=== PATIENT | female | born 1945 | race Hispanic/Latino ===

== ENCOUNTER 2017-02-24 02:35 | Inpatient (IN) | payer MEDICARE, MEDICAID ==
[2017-02-24] MEDS ORDERED: Nitroglycerin 2% Ointment 1 INCH/1 GM Packet ONE (02:44)
[2017-02-24 03:11] LABS: Anion Gap 7 mmol/L (-14-95); T. Carbon Dioxide 27.2 mmol/L (1.0-85.0); pH (Venous) 7.325 (7.35-7.45); vO2 Saturation-calc 85.4 % (0.0-100.0)
[2017-02-24 03:24] LABS: #Eosinphils 0.1 thou/uL (0.0-0.7); #Lymphocytes 0.8 thou/uL (1.20-3.40); #Monocytes 0.5 thou/uL (0.11-0.59); #Neutrophils 7.9 thou/uL (1.40-6.50); %Basophils 0.1 % (0.0-1.0); %Eosinophils 1.2 % (0.0-10.0); %Lymphocytes 8.2 % (21.0-51.0); %Monocytes 5.4 % (0.0-10.0); Hematocrit 31.8 % (36.0-47.0); Mean Platelet Volume 8.7 fL (7.4-10.4); Red Blood Cell (RBC) Count 3.27 mill/uL (4.20-5.40); White Blood Cell (WBC) Count 9.3 thou/uL (4.8-10.8)
[2017-02-24 03:46] LABS: ALT (SGPT) 20 U/L (8-55); AST (SGOT) 21 U/L (5-34); Alkaline Phosphatase 155 U/L (40-150); Anion Gap 23 mmol/L (10-20); BUN (Urea Nitrogen) 94 mg/dL (9.8-20.1); Bilirubin, Total 0.8 mg/dL (0.2-1.2); CK (CPK) 24 U/L (29-168); Calc. Creatinine Clearance 0 mL/min (70-130); Calcium 9.5 mg/dL (7.8-10.44); Carbon Dioxide 23 mmol/L (23-31); Chloride 96 mmol/L (98-107); Estimated GFR-MDRD 3; Globulin 4.3 g/dL (2.4-3.5); Protein, Total 8.2 g/dL (6.0-8.3)
[2017-02-24 04:03] LABS: Troponin I 0.453 ng/mL (< 0.028)
[2017-02-24] MEDS ORDERED: Furosemide 40 MG/4 ML VIAL ONE (04:14)
[2017-02-24] MEDS ORDERED: hydrALAZINE 20 MG/ML VIAL SLOW IVP PRN (05:38)
[2017-02-24] MEDS ORDERED: Ondansetron ODT 4 MG TAB PO PRN (05:38)
[2017-02-24] MEDS ORDERED: Dextrose 50% Abboject 50 ML SYRINGE SLOW IVP PRN (05:38)
[2017-02-24] MEDS ORDERED: Dextrose 5% in Water 1,000 ML IV PRN (05:38)
[2017-02-24] MEDS ORDERED: ALPRAZolam 0.25 MG TAB PO PRN ×2 (05:38→11:07)
[2017-02-24] MEDS ORDERED: HYDROcodone/Acetaminophen 5/325 mg Tablet PO PRN (05:38)
[2017-02-24] MEDS ORDERED: Acetaminophen 325 MG TAB PO PRN (05:38)
[2017-02-24] MEDS ORDERED: HumaLOG 300 UNITS/3 ML VIAL SC PRN (05:38)
[2017-02-24] MEDS ORDERED: HYDROcodone/Acetaminophen 10/325 mg Tablet PO PRN (05:38)
[2017-02-24 05:45] VITALS: BMI 35.2
[2017-02-24] MEDS: Furosemide 40 MG/4 ML VIAL SLOW IVP SCH ×2 (06:02→13:58)
[2017-02-24] MEDS: Nitroglycerin 2% Ointment 1 INCH/1 GM Packet TOP SCH ×3 (06:03→21:39)
--- NOTE | 2017-02-24 06:10 | HP ---
PRIMARY CARE PHYSICIAN: Dr. Hernandez PRIMARY PASTING MACHINE OPERATOR: Dr. Ryan Mayorga CHIEF COMPLAINT: Shortness of breath. HISTORY OF PRESENT ILLNESS: Ms. Randle is a pleasant 71-year-old obese female with hi story of end-stage renal disease, on hemodialysis Friday, Friday, and Friday, coronary artery dise ase, hypertension. The patient has been compliant with the regimens. She has had a 2-3 day history of increasing shortness of breath and then the evening prior to admission at 9:00 p.m. she got acutel y worse. EMS was called and apparently her SpO2 was in the 70s. She was given a DuoNeb x2 and place d on BiPAP and oxygen and transported to the emergency department. Per report, blood pressures were in the 200/110. On arrival here, blood pressure remain elevated, she was given BiPAP, but no nitro p aste or Lasix prior to calling me. I asked them to go ahead and place an inch and nitro paste onto h er chest wall and give her 40 mg of IV Lasix. She has not put out much urine yet. She was breathing better on BiPAP and sats were 100% on FiO2 of 30%. She denies any fever or chills. She has had some cough and congestion. No hemoptysis. No GI bleedi ng, no change in her diet or increase in salt intake. PAST MEDICAL HISTORY: 1. Diabetes mellitus type 2. 2. End-stage renal disease, on hemodialysis Friday, Friday, and Friday. 3. Hypertension, essential. 4. Hyperlipidemia. 5. Obesity. 6. History of coronary artery disease. She states she had a heart attack several years ago and went into multiorgan failure and resultant was her end-stage renal disease. She had a stress test at [facility] in the recent past that was abnormal and she is supposed to see Dr. Mckenzie this week to get set up for a possible heart catheterization. PAST SURGICAL HISTORY: 1. Stomach mass removal. 2. Eye surgery. 3. Right arm fistula creation. 4. Left hallux amputation. HOME MEDICATIONS: 1. Xanax 0.25 mg p.o. t.i.d. 2. Protonix 40 mg p.o. q.a.m. 3. Nifedical XL 60 mg p.o. daily. 4. Isosorbide dinitrate 20 mg p.o. daily. 5. Metoprolol tartrate 100 mg p.o. b.i.d. ALLERGIES: NKDA. FAMILY HISTORY: Negative for clotting or bleeding disorder, no immune dysfunction, no premature daphney nary disease. SOCIAL HISTORY: Negative for habits x3. She is . Her accompanies her. REVIEW OF SYSTEMS: A 10-point review of systems was performed, negative for all other systems except as per HPI. PHYSICAL EXAMINATION: VITAL SIGNS: Temperature is 97.5, pulse 118, blood pressure 162/84, respiratory 19, satting 100% on BiPAP 12/5 with 30% FiO2. GENERAL: The patient is awake. She is alert, she is oriented x3. She is in no acute distress. She is comfortable with BiPAP. HEENT: Normocephalic, atraumatic. Pupils equal, reactive bilaterally, mucous membranes are dry on B iPAP. She has no visible lesions. No thrush. NECK: Supple. She has no lymphadenopathy, no JVD. She has normal carotid upstroke. CHEST: Lungs are currently clear to auscultation bilaterally. She has faint bibasilar crackles that do not clear with deep inspiration. There is no prolonged expiratory phase and no wheezes. CARDIOVASCULAR: She is tachycardic, but regular. She has normal S1 and S2. I cannot appreciate mur murs. ABDOMEN: Obese, it is nontender, nondistended. She has no hepatosplenomegaly. There is a hepatojug ular reflex. She has normoactive bowel sounds present x4 quadrants. EXTREMITIES: Show no cyanosis, no clubbing with trace bilateral lower extremity edema to the mid tib ia level. SKIN: Warm, moist, and well perfused without rashes or lesions. MUSCULOSKELETAL: Normal to inspection. She has no inflamed joints. No palpable joint effusion. Go od range of motion. NEUROLOGIC: Cranial nerves II-XII grossly intact. She has normal speech pattern. She has no focal deficits, 5/5 strength. LABORATORY DATA: CMP is normal except for BUN 94, creatinine of 11.15 which is at her baseline. Reginald cium is normal at 9.5, potassium 4.5, bicarbonate 23, glucose 158. Alkaline phosphatase 155. The re st of the liver functions are normal. She had a BNP of 1283.1. CK normal at 24, MB of 2.8 and a tro ponin of 0.453. CBC revealed white count 9.3, hemoglobin 10.7, hematocrit of 31.8 and platelets 131,000. Her chest x -ray shows pulmonary vascular congestion to my eye and some pulmonary edema in the bases. ASSESSMENT AND PLAN: 1. Hypertensive urgency. Blood pressure in the 200/110s on initial EMS arrival. She is in pulmonar y edema secondary to that. 2. Acute on chronic diastolic congestive heart failure, last ejection fraction of 55-60% with diasto lic dysfunction in 11/2015. We will get a repeat echocardiogram and ask Cardiology to evaluate. 3. History of coronary disease. The patient is being set up for a heart catheterization. We will g et serial cardiac biomarkers. The patient will be on nitro paste, we will continue her metoprolol, a nd oxygen. We will await Cardiology evaluation. 4. End-stage renal disease on dialysis. The patient needs dialysis semi urgently. We will contact Dr. Mayorga for dialysis. Today is her dialysis day. 5. Obesity. 6. Hyperlipidemia, not on therapy at this time. The patient will be admitted to the IMCU on BiPAP.
[2017-02-24 06:35] LABS: Troponin I 0.546 ng/mL (< 0.028)
[2017-02-24] MEDS: Famotidine 20 MG TAB PO SCH (08:17)
--- NOTE | 2017-02-24 08:44 | RAD ---
PORTABLE CHEST: Date: 02/24/17 HISTORY: Dyspnea. COMPARISON: 12/16/15. FINDINGS/IMPRESSION: Heart is upper normal size. There is vascular engorgement. There is evidence of bilateral effusions, larger on the left. There is abnormal opacification of the left lung base consistent with dense atele ctasis and/or consolidation. POS: [facility]
[2017-02-24] MEDS ORDERED: NIFEdipine XL 60 MG TAB PO SCH (09:00)
[2017-02-24] MEDS ORDERED: Isosorbide Dinitrate 20 MG TAB PO SCH (09:00)
[2017-02-24] MEDS ORDERED: Metoprolol Tartrate 100 MG TAB PO SCH (09:00)
[2017-02-24] MEDS ORDERED: Aspirin 325 MG TAB PO SCH (09:00)
--- NOTE | 2017-02-24 11:15 | PDOC.PN ---
- Subjective Encounter Start Date: 02/24/17 Encounter Start Time: 11:12 Subjective: on BIPAP, no distress - Objective Resuscitation Status: Resuscitation Status FULL:Full Resuscitation MAR Reviewed: Yes Vital Signs & Weight: Vital Signs (12 hours) Temp Pulse Resp BP BP Pulse Ox 02/24/17 11:00 96.7 F L 74 30 H 105/52 L 98 02/24/17 08:55 97.9 F 111 H 18 97 02/24/17 08:15 111 H 153/72 H 02/24/17 07:28 110 H 15 99 02/24/17 07:17 97.9 F 110 H 20 153/72 H 100 02/24/17 06:00 97.8 F 117 H 23 H 100 02/24/17 05:10 97.8 F 117 H 23 H 167/83 H 100 Weight Weight 186 lb 9.6 oz I&O: 02/23/17 02/24/17 02/25/17 06:59 06:59 06:59 Intake Total 20 Balance 20 Result Diagrams: 02/24/17 03:07 02/24/17 03:07 Additional Labs: Accuchecks 02/24/17 02/24/17 10:22 06:56 POC Glucose 97 123 H Phys Exam - Physical Examination Constitutional: NAD Neck: no JVD bilat lower lung rales, L.R Cardiovascular: RRR 2/6 sys murmur Gastrointestinal: soft, positive bowel sounds Musculoskeletal: edema present Dx/Plan (1) Acute respiratory failure with hypoxemia Code(s): J96.01 - ACUTE RESPIRATORY FAILURE WITH HYPOXIA Status: Acute (2) Acute on chronic diastolic (congestive) heart failure Code(s): I50.33 - ACUTE ON CHRONIC DIASTOLIC (CONGESTIVE) HEART FAILURE Status : Acute (3) ESRD needing dialysis Code(s): N18.6 - END STAGE RENAL DISEASE; Z99.2 - DEPENDENCE ON RENAL DIALYSIS Status: Chronic (4) Diabetes mellitus with end stage renal disease Code(s): E11.22 - TYPE 2 DIABETES MELLITUS W DIABETIC CHRONIC KIDNEY DISEASE; N18.6 - END STAGE RENAL DISEASE Status: Chronic (5) Peripheral vascular disease in diabetes mellitus Code(s): E11.51 - TYPE 2 DIABETES W DIABETIC PERIPHERAL ANGIOPATH W/O GANGRENE Status: Chronic (6) Anxiety Code(s): F41.9 - ANXIETY DISORDER, UNSPECIFIED Status: Chronic (7) CAD (coronary artery disease) Code(s): I25.10 - ATHSCL HEART DISEASE OF [place] CORONARY ARTERY W/O ANG PCTRS Status: Chronic Qualifiers: Coronary Disease-Associated Artery/Lesion type: [place] artery [place] vs. transplanted heart: [place] heart Associated angina: without angina Qualified Code(s): I25.10 - Atherosclerotic heart disease of [place] coronary artery without angina pectoris - Plan cont BIPAP , O2 -: cont HD -: accu/ss -: selected home meds * .
[2017-02-24 14:06] LABS: Troponin I 2.326 ng/mL (< 0.028)
[2017-02-24 18:55] LABS: Troponin I 2.542 ng/mL (< 0.028)
--- NOTE | 2017-02-24 19:51 | CON ---
DATE OF CONSULTATION: 02/24/2017 CONSULTING PHYSICIAN: Dr. West. REASON FOR CONSULTATION: End-stage renal disease evaluation and care. REASON FOR ADMISSION: Shortness of breath. HISTORY OF PRESENT ILLNESS: This is a 71-year-old obese female with past medical history of end-stage renal disease, hypertension, noncompliance, hyperlipidemia, obesity, who came to the [facility] with shortness of breath and has been evaluated. The patient had an increased fluid intake over the holiday season and is due for dialysis today. She gets dialysis Friday, Friday and Friday. S he was seen after dialysis and was feeling better. No fever or chills. No nausea, vomiting, no coug h reported. PAST MEDICAL HISTORY: Positive for type 2 diabetes, end-stage renal disease, hypertension, hyperlipi demia, obesity, coronary artery disease. PAST SURGICAL HISTORY: Stomach mass removal, eye surgery, right arm fistula creation, left hallux am putation. HOME MEDICATIONS: Xanax, Protonix, Nifedical, isosorbide, metoprolol. ALLERGIES: No known drug allergies. SOCIAL HISTORY: No smoking, alcohol or illicit drug abuse. FAMILY HISTORY: No history of any kidney disease. REVIEW OF SYSTEMS: The following complete review of systems was negative, unless otherwise mentioned in the HPI or below: Constitutional: Weight loss or gain, ability to conduct usual activities. Skin: Rash, itching. Eyes: Double vision, pain. ENT/Mouth: Nose bleeding, neck stiffness, pain, tenderness. Cardiovascular: Palpitations, dyspnea on exertion, orthopnea. Respiratory: Shortness of breath, wheezing, cough, hemoptysis, fever or night sweats. Gastrointestinal: Poor appetite, abdominal pain, heartburn, nausea, vomiting, constipation, or diarr hea. Genitourinary: Urgency, frequency, dysuria, nocturia. Musculoskeletal: Pain, swelling. Neurologic/Psychiatric: Anxiety, depression. Allergy/Immunologic: Skin rash, bleeding tendency. PHYSICAL EXAMINATION: GENERAL: This is an obese female, in no apparent distress. VITAL SIGNS: Temperature 98.2, pulse 75, respiratory rate 18, blood pressure 105/52. LABORATORY DATA: Potassium 4.5, BUN 94, creatinine 11.1, albumin is 3.9. Hemoglobin is 10.7. ASSESSMENT AND PLAN: 1. End-stage renal disease. Plan is to have dialysis today. The patient had dialysis, emergent shahid lysis. 2. Fluid overload with shortness of breath. We will plan for dialysis and ultrafiltration. 3. Edema. 4. Hypertension. 5. Anemia. 6. The patient was advised to limit fluid intake. We will continue to follow. Thank you for the co nsultation. We will continue on dialysis Friday, Friday, and Friday. We will consider dialysis t omorrow if remains fluid overloaded. Monitor oxygen status and limit fluid intake and salt intake. We will follow.
[2017-02-24] MEDS: NIFEdipine XL 30 MG TAB PO SCH (21:38)
[2017-02-24] MEDS: Metoprolol Tartrate 100 MG TAB PO SCH (21:39)
[2017-02-24 22:33] LABS: Critical Call Chem Troponin I RESULT DECREASING; Troponin I 2.403 ng/mL (< 0.028)
[2017-02-25 04:22] LABS: #Eosinphils 0.2 thou/uL (0.0-0.7); #Lymphocytes 0.9 thou/uL (1.20-3.40); #Monocytes 0.6 thou/uL (0.11-0.59); #Neutrophils 5.5 thou/uL (1.40-6.50); %Basophils 0.4 % (0.0-1.0); %Eosinophils 2.7 % (0.0-10.0); %Lymphocytes 11.9 % (21.0-51.0); %Monocytes 7.8 % (0.0-10.0); Hematocrit 27.6 % (36.0-47.0); Mean Platelet Volume 8.7 fL (7.4-10.4); Red Blood Cell (RBC) Count 2.76 mill/uL (4.20-5.40); White Blood Cell (WBC) Count 7.1 thou/uL (4.8-10.8)
[2017-02-25 04:38] LABS: Anion Gap 16 mmol/L (10-20); BUN (Urea Nitrogen) 49 mg/dL (9.8-20.1); Calc. Creatinine Clearance 11 mL/min (70-130); Calcium 9.1 mg/dL (7.8-10.44); Carbon Dioxide 27 mmol/L (23-31); Chloride 97 mmol/L (98-107); Estimated GFR-MDRD 7
[2017-02-25] MEDS: Nitroglycerin 2% Ointment 1 INCH/1 GM Packet TOP SCH ×3 (06:12→23:24)
[2017-02-25] MEDS: Aspirin 81 mg Enteric Coated Tablet PO SCH (09:40)
[2017-02-25] MEDS: Famotidine 20 MG TAB PO SCH (09:40)
[2017-02-25] MEDS: Isosorbide Dinitrate 20 MG TAB PO SCH (09:47)
[2017-02-25] MEDS: Metoprolol Tartrate 100 MG TAB PO SCH ×3 (09:47→20:55)
--- NOTE | 2017-02-25 11:47 | PDOC.PN ---
- Subjective Encounter Start Date: 02/25/17 Encounter Start Time: 10:00 Subjective: sob improved, off BIPAP - Objective Resuscitation Status: Resuscitation Status FULL:Full Resuscitation MAR Reviewed: Yes Vital Signs & Weight: Vital Signs (12 hours) Temp Pulse Resp BP Pulse Ox 02/25/17 11:27 97.8 F 53 L 20 91/41 L 100 02/25/17 09:00 98.2 F 71 20 100 02/25/17 07:47 98.2 F 71 20 135/51 L 100 02/25/17 05:09 99 02/25/17 04:09 98.4 F 61 18 102/34 L 99 02/25/17 00:09 98.6 F 66 17 103/32 L 98 Weight Weight 180 lb 6.4 oz I&O: 02/24/17 02/25/17 02/26/17 06:59 06:59 06:59 Intake Total 20 1020 Output Total 3575 Balance 20 -2555 Result Diagrams: 02/25/17 04:03 02/25/17 04:03 Additional Labs: Accuchecks 02/25/17 02/25/17 02/24/17 11:14 05:58 20:16 POC Glucose 112 H 95 159 H 02/24/17 16:37 POC Glucose 125 H Phys Exam - Physical Examination Constitutional: NAD Neck: no JVD rales to mid chest post. Cardiovascular: RRR, no rub, gallop Gastrointestinal: soft, no distention, positive bowel sounds Musculoskeletal: edema present Dx/Plan (1) Acute respiratory failure with hypoxemia Code(s): J96.01 - ACUTE RESPIRATORY FAILURE WITH HYPOXIA Status: Acute (2) Acute on chronic diastolic (congestive) heart failure Code(s): I50.33 - ACUTE ON CHRONIC DIASTOLIC (CONGESTIVE) HEART FAILURE Status : Acute (3) ESRD needing dialysis Code(s): N18.6 - END STAGE RENAL DISEASE; Z99.2 - DEPENDENCE ON RENAL DIALYSIS Status: Chronic (4) Diabetes mellitus with end stage renal disease Code(s): E11.22 - TYPE 2 DIABETES MELLITUS W DIABETIC CHRONIC KIDNEY DISEASE; N18.6 - END STAGE RENAL DISEASE Status: Chronic (5) Peripheral vascular disease in diabetes mellitus Code(s): E11.51 - TYPE 2 DIABETES W DIABETIC PERIPHERAL ANGIOPATH W/O GANGRENE Status: Chronic (6) Anxiety Code(s): F41.9 - ANXIETY DISORDER, UNSPECIFIED Status: Chronic (7) CAD (coronary artery disease) Code(s): I25.10 - ATHSCL HEART DISEASE OF [place] CORONARY ARTERY W/O ANG PCTRS Status: Chronic Qualifiers: Coronary Disease-Associated Artery/Lesion type: [place] artery [place] vs. transplanted heart: [place] heart Associated angina: without angina Qualified Code(s): I25.10 - Atherosclerotic heart disease of [place] coronary artery without angina pectoris - Plan rpt cxr. cont O2, -: move to tele -: will need at least 1 more HD * .
--- NOTE | 2017-02-25 15:51 | RAD ---
RADIOGRAPH CHEST 1 VIEW: Date: 02-26-16 Time: 11:54 a.m. HISTORY: 71-year-old female with dyspnea, cough, and congestion. COMPARISON: 02-24-17 at 2:26 a.m. FINDINGS: Pulmonary vascular engorgement and cardiomegaly are again noted. The left lower lobe dense opacificat ion remains. The airspace densities in the left perihilar region, and to a lesser degree right perihi lar region, remain. There is a new finding of dense opacification of the right lung base. No pneumoth orax. IMPRESSION: 1. Interval development of new air space density in the right lower lobe: Pneumonia versus atelectasi s. 2. No interval change in the large consolidation or left lower lobe: Pneumonia versus atelectasis. 3. Evidence for congestive heart failure: Cardiomegaly, pulmonary vascular engorgement and probable b ilateral pleural effusions, similar to prior study. YVONNE [] POS: [facility]
[2017-02-25] MEDS: NIFEdipine XL 30 MG TAB PO SCH (20:56)
--- NOTE | 2017-02-25 22:40 | PRG ---
DATE OF SERVICE: 02/25/2017 SUBJECTIVE: Patient was seen and examined at bedside and overnight events noted. Patient denies any shortness of breath or chest pain or palpitation. No history of nausea or vomiting or diarrhea or f ever or chills or cramps. OBJECTIVE: GENERAL: This is an obese female, in no apparent distress. VITAL SIGNS: Temperature 98.0, pulse 56, respiratory rate 16, blood pressure 99/42. HEENT: Atraumatic, normocephalic, Oral mucosa is moist. NECK: Supple. CARDIOVASCULAR: S1, S2 heard, rate and rhythm regular. RESPIRATORY: Clear to auscultation. GASTROINTESTINAL: Abdomen is soft. MUSCULOSKELETAL: No tenderness, no edema. DERMATOLOGIC: No skin rash. NEUROLOGIC: Alert and awake and oriented x3. No focal neurologic deficits. Moving all the extremit ies. PSYCHIATRIC: Mood and affect normal. LABORATORY DATA: Potassium is 4.3, BUN is 49, creatinine is 6.1. ASSESSMENT AND PLAN: 1. End-stage renal disease. Continue on hemodialysis as tolerated. We will have extra dialysis for today for 2 hours. 2. Fluid overload. Plan is to have extra 2-hour session of dialysis today for ultrafiltration. 3. Anemia. 4. Edema. 5. Hypertension. 6. Obesity. Plan is to continue on dialysis as tolerated. We will have 2 hours of dialysis today and then contin ue on dialysis Friday, Friday, and Friday. The patient was advised to limit fluid intake.
[2017-02-26] MEDS: Nitroglycerin 2% Ointment 1 INCH/1 GM Packet TOP SCH ×3 (05:59→20:54)
[2017-02-26] MEDS: Famotidine 20 MG TAB PO SCH (13:29)
[2017-02-26] MEDS: Isosorbide Dinitrate 20 MG TAB PO SCH (13:31)
[2017-02-26] MEDS: Aspirin 81 mg Enteric Coated Tablet PO SCH (13:31)
[2017-02-26] MEDS: Metoprolol Tartrate 100 MG TAB PO SCH ×2 (13:32→20:53)
--- NOTE | 2017-02-26 14:56 | PDOC.PN ---
- Subjective Encounter Start Date: 02/26/17 Encounter Start Time: 14:55 Subjective: no sob - Objective Resuscitation Status: Resuscitation Status FULL:Full Resuscitation MAR Reviewed: Yes Vital Signs & Weight: Vital Signs (12 hours) Temp Pulse Resp BP Pulse Ox 02/26/17 13:00 98.0 F 55 L 15 100 02/26/17 04:09 98.0 F 55 L 15 110/60 98 Weight Weight 179 lb 4.8 oz I&O: 02/25/17 02/26/17 02/27/17 06:59 06:59 06:59 Intake Total 1020 640 500 Output Total 3575 1999 Balance -5375 -1360 500 Result Diagrams: 02/25/17 04:03 02/25/17 04:03 Additional Labs: Accuchecks 02/26/17 02/25/17 02/25/17 05:14 20:15 16:55 POC Glucose 97 136 H 124 H Phys Exam - Physical Examination Neck: no JVD Respiratory: clear to auscultation bilateral Cardiovascular: RRR, no significant murmur Gastrointestinal: soft, positive bowel sounds Musculoskeletal: edema present Dx/Plan (1) Acute respiratory failure with hypoxemia Code(s): J96.01 - ACUTE RESPIRATORY FAILURE WITH HYPOXIA Status: Acute (2) Acute on chronic diastolic (congestive) heart failure Code(s): I50.33 - ACUTE ON CHRONIC DIASTOLIC (CONGESTIVE) HEART FAILURE Status : Acute (3) ESRD needing dialysis Code(s): N18.6 - END STAGE RENAL DISEASE; Z99.2 - DEPENDENCE ON RENAL DIALYSIS Status: Chronic (4) Diabetes mellitus with end stage renal disease Code(s): E11.22 - TYPE 2 DIABETES MELLITUS W DIABETIC CHRONIC KIDNEY DISEASE; N18.6 - END STAGE RENAL DISEASE Status: Chronic (5) Peripheral vascular disease in diabetes mellitus Code(s): E11.51 - TYPE 2 DIABETES W DIABETIC PERIPHERAL ANGIOPATH W/O [place]ANGR[place] Status: Chronic (6) Anxiety Code(s): F41.9 - ANXIETY DISORDER, UNSPECIFIED Status: Chronic (7) CAD (coronary artery disease) Code(s): I25.10 - ATHSCL HEART DISEASE OF [place] CORONARY ARTERY W/O ANG PCTRS Status: Chronic Qualifiers: Coronary Disease-Associated Artery/Lesion type: [place] artery [place] vs. transplanted heart: [place] heart Associated angina: without angina Qualified Code(s): I25.10 - Atherosclerotic heart disease of [place] coronary artery without angina pectoris - Plan discuss with renal -: cont ASA, nifedipine, metoprolol * .
--- NOTE | 2017-02-26 19:49 | PRG ---
DATE OF SERVICE: 02/26/2017 NEPHROLOGY PROGRESS NOTE SUBJECTIVE: Patient was seen and examined at bedside and overnight events noted. Patient denies any shortness of breath or chest pain or palpitation. No history of nausea or vomiting or diarrhea or f ever or chills or cramps. OBJECTIVE: GENERAL: This is a well-built female in no apparent distress. VITAL SIGNS: Temperature 97.6, pulse 54, respiratory 18, blood pressure 148/63. HEENT: Atraumatic, normocephalic. Oral mucosa is moist. NECK: Supple. CARDIOVASCULAR: S1, S2 heard. Rate and rhythm regular. RESPIRATORY: Clear to auscultation. GASTROINTESTINAL: Abdomen is soft. MUSCULOSKELETAL: No tenderness. No edema. DERMATOLOGIC: No skin rash. NEUROLOGIC: Alert and awake and oriented x3. No focal neurologic deficits. Moving all the extremit ies. PSYCHIATRIC: Mood and affect normal. LABORATORY DATA: No labs done today. ASSESSMENT AND PLAN: 1. End-stage renal disease, continue on hemodialysis Friday, Friday, and Friday, some fluid overl oad. Advised to limit fluid intake. 2. Anemia of end-stage renal disease. 3. Edema. 4. Hypertension. 5. Obesity. Plan is to continue on dialysis as tolerated. Advised to limit fluid intake.
[2017-02-26] MEDS: NIFEdipine XL 30 MG TAB PO SCH (20:53)
[2017-02-27] MEDS: Nitroglycerin 2% Ointment 1 INCH/1 GM Packet TOP SCH (05:08)
[2017-02-27] MEDS: Metoprolol Tartrate 100 MG TAB PO SCH (08:41)
[2017-02-27] MEDS: Aspirin 81 mg Enteric Coated Tablet PO SCH (08:41)
[2017-02-27] MEDS: Isosorbide Dinitrate 20 MG TAB PO SCH (08:41)
[2017-02-27] MEDS: Famotidine 20 MG TAB PO SCH (08:41)
--- NOTE | 2017-02-27 10:39 | DIS ---
DATE OF ADMISSION: 02/24/2017 DATE OF DISCHARGE: 02/27/2017 DISPOSITION: Discharged home. PRIMARY CARE PROVIDER: Dr. Kiran Hernandez. ADMITTING DIAGNOSES: 1. Acute on chronic respiratory failure with hypoxemia. 2. Acute on chronic diastolic heart failure. 3. Hypertensive urgency. 4. End-stage renal disease. 5. Coronary artery disease. 6. Diabetes mellitus type 2. 7. Peripheral vascular disease. DISCHARGE MEDICATIONS: Aspirin 81 mg a day, Protonix 40 mg a day, Isordil 20 mg a day, metoprolol 10 0 mg twice a day, nifedipine 30 mg a day, and Xanax 0.25 mg t.i.d. p.r.n. ALLERGIES: No known drug allergies. PENDING AT THE TIME OF DISCHARGE: Echocardiogram. CODE STATUS: FULL. HOSPITAL COURSE: The patient admitted to [facility] through [facility]. She presents with 3-day history of shortness of breath. Her saturation was in the 70s. She was initially placed in the hospital on BiPAP. Dr. Bert Rizo was consulted for her volume ove rload. She had dialysis on a daily basis through yesterday. She is not scheduled today. She is emilia eduled for regular dialysis tomorrow, she is being discharged to keep that appointment. The patient has a history of diastolic heart failure. Her initial chest x-ray demonstrated very significant pulm onary vascular congestion with probable left pleural effusion. LABORATORY DATA: White count 9.3, hemoglobin 10.7, and platelet count 131. Initial creatinine marke dly elevated at 11.15, BUN 94. BNP elevated at 1283. After dialysis, her creatinine has dropped to 6.2, BUN 49. Her blood sugars have been well controlled. She is currently comfortable. PHYSICAL EXAMINATION: VITAL SIGNS: Blood pressure 138/66, pulse 67, and respirations 16-20. CHEST: Grossly clear except for some dullness in the left lower lung field. HEART: Regular rate and rhythm. She is comfortable up and about. She is being discharged for routine dialysis tomorrow as an outpati ent. FOLLOW UP: 1. Follow up with Dr. Hernandez recommended in 7 days. 2. Follow up with Dr. Rizo at dialysis. DIET: Renal.
--- NOTE | 2017-02-27 10:47 | PDOC.EVN ---
Event Note - Event Note Event Note: no ROSINA or ARB secondary to severe renal dysfunction
[2017-02-27 12:17] VITALS: TEMP 97.6
[2017-02-27 15:18] VITALS: BP 115/54
--- NOTE | 2017-02-27 20:21 | PRG ---
DATE OF SERVICE: 02/27/2017 SUBJECTIVE: Patient was seen and examined at bedside and overnight events noted. Patient denies any shortness of breath or chest pain or palpitation. No history of nausea or vomiting or diarrhea or f ever or chills or cramps. OBJECTIVE: GENERAL: This is an obese female in no apparent distress. VITAL SIGNS: Temperature 97.6, pulse 56, respiratory rate 20, blood pressure 104/50. HEENT: Atraumatic, normocephalic. Oral mucosa is moist. NECK: Supple. CARDIOVASCULAR: S1, S2 heard. Rate and rhythm regular. RESPIRATORY: Clear to auscultation. GASTROINTESTINAL: Abdomen is soft. MUSCULOSKELETAL: No tenderness, no edema. DERMATOLOGIC: No skin rash. NEUROLOGIC: Alert and awake and oriented x3. No focal neurologic deficits. Moving all the extremit ies. PSYCHIATRIC: Mood and affect normal. LABORATORY DATA: Not done today. ASSESSMENT AND PLAN: 1. End-stage renal disease. Continue on hemodialysis Friday, Friday, and Friday. 2. Anemia of end-stage renal disease. 3. Edema, controlled. 4. Hypertension. 6. Obesity. Plan is to continue on dialysis Friday, Friday, and Friday as tolerated.
== END 2017-02-27 13:28 | disposition home or self-care (01) | DRG 291 ==
LOC: ERS 02:35 → IMCU/EMU 04:10 → 2NO 02-26 16:28
PROVIDERS: ADMIT Internal Medicine Infectious Disease; ATTEND Internal Medicine Infectious Disease
PROC: 5A1D70Z Performance of Urinary Filtration, Intermittent, Less than 6 Hours Per Day (ICD-10-PCS; principal; 2017-02-24)
PROC: 5A09357 Assistance with Respiratory Ventilation, Less than 24 Consecutive Hours, Continuous Positive Airway Pressure (ICD-10-PCS; 2017-02-24)
DX: I13.2 Hypertensive heart and chronic kidney disease with heart failure and with stage 5 chronic kidney disease, or end stage renal disease (principal); J96.21 Acute and chronic respiratory failure with hypoxia; N18.6 End stage renal disease; I50.33 Acute on chronic diastolic (congestive) heart failure; E11.22 Type 2 diabetes mellitus with diabetic chronic kidney disease; I16.0 Hypertensive urgency; I50.84 End stage heart failure; Z99.2 Dependence on renal dialysis; I25.10 Atherosclerotic heart disease of native coronary artery without angina pectoris; E11.51 Type 2 diabetes mellitus with diabetic peripheral angiopathy without gangrene; E78.5 Hyperlipidemia, unspecified; Z91.14 Patient's other noncompliance with medication regimen; E66.9 Obesity, unspecified; Z68.35 Body mass index [BMI] 35.0-35.9, adult; F41.9 Anxiety disorder, unspecified; D63.1 Anemia in chronic kidney disease
CPT/HCPCS: 36415; 36416; 71010; 80048; 80053; 82330; 82553; 82803; 83880; 84484; 85025; 87340; 93005; 93306; 93798; 94660; 94760; 96374; G8978-GP-CM; G8979-GP-CK; J1940

== ENCOUNTER 2017-05-26 12:59 | Inpatient (IN) | payer MEDICARE, MEDICAID ==
[~2017-05-26 12:59] MED LIST: Iopamidol 370 76% 100 ML VIAL ONE
[2017-05-26] MEDS ORDERED: Ondansetron HCl/PF 4 MG/2 ML Vial ONE (13:39)
[2017-05-26] MEDS ORDERED: Naloxone HCl 2 mg/2 ml Syringe ONE (13:39)
[2017-05-26] MEDS ORDERED: Rocuronium Bromide 50 MG/5 ML VIAL ONE (13:40)
[2017-05-26] MEDS ORDERED: Norepinephrine 8 MG/0.9% NS 250 ML ONE ×2 (13:58→17:22)
[2017-05-26 14:07] LABS: Hemoglobin 10.9 g/dL (12.0-16.0); Mean Corpuscular HGB CONC 32.5 g/dL (32.0-36.0); Mean Corpuscular Hemoglobin 31.7 pg (27.0-31.0); Mean Corpuscular Volume 97.7 fl (81.0-99.0); RBC Distribution Width 13.9 % (11.5-14.5); Red Blood Cell (RBC) Count 3.43 mill/uL (4.20-5.40); White Blood Cell (WBC) Count 5.1 thou/uL (4.8-10.8)
[2017-05-26 14:15] LABS: Acetaminophen Less than 6.0 mcg/mL (10.0-30.0); Alcohol Less than 10 mg/dL (Less than 10); Salicylate Less than 8.0 mg/dL (15.0-30.0)
[2017-05-26 14:19] LABS: Band 6 % (5-11); Large Platelets SLIGHT; Lymphocytes 22 % (21-51); MDiff Complete? YES; Mean Platelet Volume 9.8 fL (7.4-10.4); Monocytes 11 % (0-10); Neutrophil 60 % (42-75); PLT Morphology Comment Appears Decreased; Platelet Count 78 thou/uL (130-400); Polychromasia SLIGHT = 2-3 cells (100X) (0-2/hpf); Reactive Lymphocytes 1 % (0-10)
[2017-05-26 14:51] LABS: INR-International Normal Ratio 2.7; Prothrombin Time 29.7 SEC (12.0-14.7)
[2017-05-26 14:52] LABS: PTT 71.3 SEC (22.9-36.1)
[2017-05-26 14:59] LABS: ALT (SGPT) 25 U/L (8-55); AST (SGOT) 61 U/L (5-34); Albumin 3.5 g/dL (3.4-4.8); Alkaline Phosphatase 117 U/L (40-150); Anion Gap 21 mmol/L (10-20); BUN (Urea Nitrogen) 23 mg/dL (9.8-20.1); Bilirubin, Total 1.5 mg/dL (0.2-1.2); Calc. Creatinine Clearance 0 mL/min (70-130); Calcium 9.1 mg/dL (7.8-10.44); Carbon Dioxide 22 mmol/L (23-31); Chloride 98 mmol/L (98-107); Estimated GFR-MDRD 11; Globulin 4.2 g/dL (2.4-3.5); Glucose 135 mg/dL (80-115); Lipase 26 U/L (8-78); Potassium 3.8 mmol/L (3.5-5.1); Protein, Total 7.7 g/dL (6.0-8.3); Sodium 137 mmol/L (136-145)
[2017-05-26] MEDS ORDERED: Amiodarone HCl 450 MG, Admixture Fee 1 EACH in Dextrose 5% in Water 250 ML IVPB SCH (15:00)
--- NOTE | 2017-05-26 15:01 | RAD ---
PORTABLE CHEST ONE VIEW: Date: 05-26-17 Time: 2:49 p.m. History: Respiratory failure. FINDINGS/IMPRESSION: The heart is enlarged. There is an endotracheal tube with the tip about 2.5 cm above the level of the leann. A nasogastric tube is in the stomach with the tip excluded from the film. Heart size is enla rged. The lungs are well expanded without focal areas of consolidation, pneumothorax, jack pleural e gabriela, or large effusions. POS: [facility]
[2017-05-26 15:26] LABS: CKMB 15.7 ng/mL (0-6.6); Troponin I 6.021 ng/mL (< 0.028)
[2017-05-26] MEDS ORDERED: Fentanyl 100 MCG/2 ML VIAL ONE (15:36)
[2017-05-26] MEDS ORDERED: Enoxaparin Sodium 80 MG/0.8 ML SYRINGE ONE (15:44)
[2017-05-26] MEDS ORDERED: Aspirin 300 MG Suppository ONE (15:44)
--- NOTE | 2017-05-26 15:46 | CT ---
NONCONTRAST CT HEAD: Date: 05-26-17 History: Altered mental status. Patient was coughing and suddenly became unresponsive and was intubat ed. Comparison: None available. FINDINGS: There is decreased attenuation in the periventricular and subcortical white matter which is nonspecif ic but likely reflective of chronic small vessel ischemic changes. There is no evidence of an acute c ortical infarction, hemorrhage, mass effect or midline shift. Mild cerebral volume loss is present. V entricular system is normal in size, shape, and position. Endotracheal tube is noted in place. There is fluid within the posterior nasal phalanx, probably rela kesha to the intubation. Small mucous retention cyst seen in the left maxillary antrum. There is mucosa l thickening seen in the ethmoidal air cells bilaterally with mastoid effusions present on the right. The calvarial structures appear intact. IMPRESSION: 1. No acute intracranial abnormalities demonstrated. 2. Small vessel ischemic changes and cerebral volume loss. 3. Sinus disease. 4. Endotracheal tube noted in place. 5. Nonspecific right mastoid effusions. 6. Above findings discussed with Emergency Department physician on 05-26-17 at 1514 hours. POS: [facility]
[2017-05-26 16:12] LABS: Actual Bicarbonate (HCO3a) 22.6 mEq/L (22-26); Base Excess (BEa) 0.4 mEq/L (0 (+/-) 2.5); Calcium, Ionized 1.1 mmol/L (1.12-1.30); Hematocrit-ABG 33.6 % (36.0-47.0); Hemoglobin (Hb) 10.5 g/dL (12.0-16.0); pH, Arterial 7.52 (7.35-7.45)
[2017-05-26 16:13] LABS: Puncture Site RBA
[2017-05-26] MEDS ORDERED: Acetaminophen 650 MG Suppository PR PRN (16:15)
[2017-05-26] MEDS ORDERED: Dextrose 5% in Water 1,000 ML IV PRN (16:15)
[2017-05-26] MEDS ORDERED: Dextrose 50% Abboject 50 ML SYRINGE SLOW IVP PRN (16:15)
[2017-05-26] MEDS ORDERED: Ondansetron HCl/PF 4 MG/2 ML Vial IVP PRN (16:15)
[2017-05-26] MEDS ORDERED: Diltiazem HCl 125 MG, Admixture Fee 1 EACH in Sodium Chloride 0.9% 100 ML IVPB SCH (16:15)
[2017-05-26] MEDS ORDERED: fentaNYL Citrate/PF 2,000 MCG in Sodium Chloride 0.9% 60 ML IV SCH (16:30)
[2017-05-26] MEDS ORDERED: Lorazepam 2 MG/ML VIAL ONE (16:34)
[2017-05-26] MEDS ORDERED: Heparin 10,000 UNITS/ 10 ML VIAL SLOW IVP SCH (16:45)
[2017-05-26] MEDS ORDERED: Heparin 25,000 units/D5W 500 ML IVPB SCH (16:45)
--- NOTE | 2017-05-26 17:18 | HP ---
PRIMARY CARE PROVIDER: Dr. Beltran Dejesus. REASON FOR ADMISSION/CHIEF COMPLAINT: The patient referred to [facility] Service by [facility] Emergency Room. HISTORY OF PRESENT ILLNESS: Patient, per her , had a bad cough for 2 days. She has been sore all over. No fever, no chills, no sweats. She was sent over here from hemodialysis. He states she was sleepy. Blood pressure was a little low, being evaluated in the emergency room. She coughed, f ell down, respiratory arrest, was immediately intubated by the emergency room physician. She is curr ently intubated. Vital signs are grossly stable. She is nonresponsive. PAST MEDICAL HISTORY: End-stage renal disease, on hemodialysis Friday, Friday, Friday; diabetes m ellitus, type 2; hypertension; dyslipidemia; history of coronary artery disease. According to her [facility] history and physical, she has had a stress test at some point, there was abnormal and was supposed to have an outpatient cardiac catheterization. PAST SURGICAL HISTORY: Stomach mass removal, eye surgery, right arm fistula. HOME MEDICATIONS: Aspirin 81 mg a day, Protonix 40 mg a day, Isordil 20 mg a day, metoprolol 100 mg twice a day, nifedipine 30 mg a day, Xanax 0.25 mg t.i.d. p.r.n. ALLERGIES: No known drug allergies. FAMILY HISTORY: Negative for bleeding disorders, premature coronary artery disease, etc. SOCIAL HISTORY: No tobacco or alcohol. . Her does not understand resuscitation stat us, but she is currently intubated and ventilated. REVIEW OF SYSTEMS: Unable to be done; patient is intubated, ventilated, and unresponsive. PHYSICAL EXAMINATION: CURRENT VITAL SIGNS: Blood pressure 130/70, pulse 105, heart rate 16, O2 sat 100 on the ventilator. HEENT: Examination of her head, eyes, ears, nose, and throat reveal pupils equal and sluggish. Eyes are disconjugate, negative doll's eyes. Sclerae are suffused, white. Tympanic membranes are occlud ed by cerumen. Nose is clear. Oral mucous membranes are wet. She has oral endotracheal tube in and it is hard to get a better visualization other than that. NECK: Short, no jugular venous distention, adenopathy, thyromegaly. CHEST: Coarse breath sounds with rhonchi diffusely. HEART: Irregularly irregular rhythm, rapid, variable first and second heart sounds. ABDOMEN: Soft. Bowel sounds are diminished. No mass or hepatosplenomegaly or bruits. EXTREMITIES: Reveal no cyanosis, clubbing, or edema. SKIN: Reveals marked changes of peripheral vascular disease below the knees into the feet. There is some minor bruising on her arms. PULSES: Carotid and radial pulses palpable. Femoral pulses markedly diminished. Pedal pulses were palpable. HEME/LYMPH: No tender or swollen lymph nodes in axilla, inguinal, or cervical area. NEUROLOGICAL: Facies symmetric, unresponsive. Deep tendon reflexes unresponsive toes midline. EKG reveals atrial fibrillation with marked ST-T depression in the lateral limb and precordial leads. EKG RESULTS: Atrial fibrillation with rapid ventricular response, marked ST-T segment depression in the lateral limb and precordial leads, reviewed by me. Chest x-ray borderline cardiomegaly, no obvio us pulmonary edema, but some evidence of pulmonary vascular congestion, no infiltrate noted, reviewed by me. LABORATORY DATA: Troponin 6.02, CK-MB 15.7. Comp metabolic profile, creatinine 4.18, BUN of 23, CO2 of 22, chloride 98, potassium 3.8, sodium 137. Lactic acid 6.5. BNP 2800. ADMITTING DIAGNOSES: 1. Acute respiratory failure with pulmonary arrest. 2. Non-ST elevation myocardial infarction. 3. Coronary artery disease. 4. End-stage renal disease. 5. Atrial fibrillation with rapid ventricular response. 6. Diabetes mellitus type 2. 7. Lactic acidosis. 8. Hypertension. 9. Dyslipidemia. PLAN: 1. Patient is intubated, ventilated, will be moved to ICU. She will require an enterprise business architect Pulmonar y consult. 2. I have spoken with Dr. Manzo about the complicated situation of a patient with acute arrest, non-S T elevation OH with marked elevation of enzymes, end-stage renal disease. She was given Lovenox by [facility] doctor. 3. Consult Dr. Rizo for continuing hemodialysis. 4. Accu-Cheks and sliding scale. 5. We will continue to formulate plan after Dr. Manzo has finished her evaluation which will be done soon.
[2017-05-26] MEDS ORDERED: PROPOFOL 20 ML ONE (17:22)
[2017-05-26] MEDS ORDERED: Heparin 10,000 UNITS/1 ML VIAL ONE ×2 (17:55→19:29)
[2017-05-26] MEDS ORDERED: EPINEPHrine 1 MG, Admixture Fee 1 EACH in Dextrose 5% in Water 250 ML IVPB SCH (18:00)
[2017-05-26 18:11] LABS: Hemoglobin 11.5 g/dL (12.0-16.0); Platelet Count 108 thou/uL (130-400)
[2017-05-26] MEDS ORDERED: Propofol 1,000 MG/100 ML VIAL IV ONE (18:14)
[2017-05-26 18:16] LABS: INR-International Normal Ratio 1.5; Prothrombin Time 18.4 SEC (12.0-14.7)
[2017-05-26 18:17] LABS: PTT 47.1 SEC (22.9-36.1)
[2017-05-26 18:41] LABS: Troponin I 20.058 ng/mL (< 0.028)
[2017-05-26] MEDS ORDERED: Lidocaine 1% (PF) 30 ML VIAL ONE (18:51)
[2017-05-26] MEDS ORDERED: Midazolam HCl 2 mg/2 ml Vial ONE (19:02)
[2017-05-26] MEDS ORDERED: Enoxaparin Sodium 40 MG/0.4 ML SYRINGE ONE (19:33)
[2017-05-26] MEDS ORDERED: DOPamine 400 MG/D5W 250 ML 250 ML IVPB PRN (19:53)
[2017-05-26] MEDS ORDERED: Norepinephrine 8 MG/250 ML BAG IVPB PRN (19:53)
[2017-05-26] MEDS ORDERED: Nitroglycerin 0.4 MG TAB (25 Tab Bottle) SL PRN (20:00)
[2017-05-26] MEDS ORDERED: Acetaminophen/Codeine 30-300mg Tablet PO PRN ×2 (20:00)
[2017-05-26] MEDS ORDERED: Sodium Chloride 0.9% 200 ML IV SCH (20:00)
[2017-05-26] MEDS ORDERED: traMADol HCl 50 MG TAB PO PRN (20:00)
[2017-05-26] MEDS ORDERED: EPINEPHrine 1 MG, Admixture Fee 1 EACH in Dextrose 5% in Water 250 ML IVPB PRN (20:04)
[2017-05-26] MEDS ORDERED: Norepinephrine 8 MG/0.9% NS 250 ML IVPB SCH (21:00)
--- NOTE | 2017-05-26 22:23 | OP ---
ELECTROCARDIOVERSION HISTORY OF PRESENT ILLNESS: This is a 71-year-old woman with paroxysmal atrial fibrillation. DESCRIPTION OF PROCEDURE: The patient was taken to the PACU. The patient had been intubated. The patient was sedated with propofol. The patient was shocked with 200 joules of synchronized electricity. The patient converted to normal sinus rhythm. IMPRESSION: Successful electrocardioversion. ESSIE
--- NOTE | 2017-05-26 22:34 | CON ---
DATE OF CONSULTATION: 05/26/2017 REASON FOR CONSULTATION: Stage 6 chronic kidney disease, on maintenance hemodialysis. HISTORY OF PRESENT ILLNESS: This is a 71-year-old female who was not feeling well, presented to the emergency room and had cardiac arrest and a myocardial infraction. No further history can be obtaine d as the patient is intubated. PAST MEDICAL HISTORY: Significant for end-stage renal disease, hypertension, anemia, history of flui d noncompliance, history of sepsis, history of stomach mass removal, eye surgery, right arm AV fistul a, and tunneled dialysis catheter. HOME MEDICATIONS: List reviewed. HOSPITAL MEDICATIONS: List reviewed. REVIEW OF SYSTEMS: Unobtainable. PHYSICAL EXAMINATION: GENERAL: The patient is resting. VITAL SIGNS: Afebrile, pulse 75, breathing at 16, blood pressure 130/75. GENERAL APPEARANCE AND MENTAL STATUS: Fair. HEAD/NECK: Normocephalic. Atraumatic. EYES: EOMI. No deformity. EARS: Clear. No ulcers. NOSE: Intact. No lesions. MOUTH: Clear. No discharge. THROAT: Clear. No exudate. LUNGS: Clear. No crackles. CARDIAC: S1, S2. No rub. ABDOMEN: Benign. BS+. GENITALIA/RECTUM: Cuellar absent. BACK/EXTREMITIES: Edema 0+ Ulcer-. NEUROLOGICAL: The patient is resting and intubated. SKIN: Rash- Bruise-. LYMPHATICS: Edema- Ulcer-. LABORATORY DATA: Show BNP of 2800, bicarbonate of 22, potassium of 3.8. ASSESSMENT AND RECOMMENDATIONS: 1. Stage 6 chronic kidney disease, no indication for dialysis. 2. Respiratory failure. 3. Non-ST segment elevation myocardial infarction. Overall, prognosis is extremely poor. I was not able to find any family member to discuss her situat ion. We will follow closely.
[2017-05-27 03:41] LABS: #Lymphocytes 0.7 thou/uL (1.20-3.40); #Monocytes 1.1 thou/uL (0.11-0.59); %Eosinophils 0.3 % (0.0-10.0); %Lymphocytes 4.5 % (21.0-51.0); %Monocytes 7.2 % (0.0-10.0); Hemoglobin 11.3 g/dL (12.0-16.0); Mean Corpuscular HGB CONC 31.8 g/dL (32.0-36.0); Mean Corpuscular Hemoglobin 31.4 pg (27.0-31.0); Mean Platelet Volume 9.6 fL (7.4-10.4); Platelet Count 115 thou/uL (130-400); RBC Distribution Width 14.2 % (11.5-14.5); Red Blood Cell (RBC) Count 3.61 mill/uL (4.20-5.40); White Blood Cell (WBC) Count 15.9 thou/uL (4.8-10.8)
[2017-05-27 03:56] LABS: Anion Gap 30 mmol/L (10-20); BUN (Urea Nitrogen) 38 mg/dL (9.8-20.1); Calc. Creatinine Clearance 11 mL/min (70-130); Calcium 8.8 mg/dL (7.8-10.44); Carbon Dioxide 15 mmol/L (23-31); Chloride 99 mmol/L (98-107); Estimated GFR-MDRD 8; Potassium 5.3 mmol/L (3.5-5.1); Sodium 139 mmol/L (136-145)
[2017-05-27 04:08] LABS: Glucose 54 mg/dL (80-115)
--- NOTE | 2017-05-27 06:16 | CON ---
DATE OF CONSULTATION: 05/26/2017 DATE OF ADMISSION: 05/26/2017 INDICATION FOR CONSULTATION: This is a 71-year-old female with non-ST segment elevation myocardial i nfarction with ST segment depressions, which are rather diffused, which could be presenting as a post erior myocardial infarction. This lady has end-stage renal disease and is on hemodialysis. She did not feel well for several days since her dialysis and then presented to the emergency room after comp laining of cough. She was in the emergency room for a short period of time. She then became apneic, she required intubation. EKG was noted to have significant ST segment depression in the inferior an d lateral leads, also extending to anteriorly. At this time, I am seeing her in the Intensive Care U nit. She continues to have significant EKG changes. She is somewhat weak now, but still intubated. She has atrial fibrillation with rapid ventricular response, which apparently is a new finding for t his lady. She was seen in the office recently by Dr. Mckenzie back in March of this year, she unde rwent a PET scan, which did show inferior wall ischemia and global hypokinesis with ejection fraction of 47%. She apparently did not return to the office for followup after that, despite being document ed 2 phone calls trying to reach the patient. She also had an echocardiogram performed on 01/2017, w [facility] showed an ejection fraction of 50%-55% with diastolic dysfunction and moderate mitral valve regu rgitation, mild tricuspid valve regurgitation. At this time, she has been given amiodarone in the em ergency room as well as started on diltiazem and the amiodarone was discontinued due to the atrial fi brillation with rapid ventricular response. At this time, heart rates in the 120s to 130s. Dr. Mina aguero at the bedside and decision has been made probably to attempt cardioversion in this lady due to hypotension. Her blood pressures have been in the 80s systolically. Previously was in the 110s, in the emergency room and the heart rate still remains in the 120s to 130s with atrial fibrillation and rapid ventricular response. The patient will be given short-acting propofol and we will undergo a ca rdioversion and most likely will need to be taken to the cardiac photographic laboratory supervisor with EKG changes do not imp rove. She has also been given 5000 units of heparin, and she was given Lovenox in the emergency room 60-70 mg a full dose of Lovenox. PAST MEDICAL HISTORY: Significant for end-stage renal disease on hemodialysis. She has a history of hypertension, hypercholesterolemia, diabetes, lymphedema, morbid obesity, and history of leg ulcers, peripheral vascular disease, ovarian disease. She has had a cystectomy bilateral. She has had an o ophorectomy. She has had an appendectomy, cataract surgery, and hernia repair. ALLERGIES: She is allergic to CLONIDINE. REVIEW OF SYSTEMS: Not obtainable at this time, there are no family members available; earlier appar ently a brother was here, but left, she has no children or family members, otherwise available. MEDICATIONS: Prior to admission included alprazolam and Renvela, aspirin 325 mg a day, Nexium 40 mg a day, isosorbide dinitrate 20 mg daily, Nifedical XL 60 mg daily, metoprolol 100 mg 2 tablets daily, and atorvastatin 10 mg half a tablet every day. PHYSICAL EXAMINATION: GENERAL: Reveals an elderly appearing female, who is in the Intensive Care Unit, intubated with blood pressure now in the 80s and 90s systolically. She is now shortly after doing this dictati ng underwent an electrocardioversion. Blood pressure has improved to 119/95. She converted to junct ional rhythm, heart rates now in the 40s; we are both still at the bedside of the patient, while I am doing the dictation here. HEENT: Showed the head to be normocephalic, atraumatic. Carotid pulses are present without any brui ts. CHEST: Has bilateral coarse rales; however, chest x-ray was unremarkable. This may be upper airway noise. CARDIOVASCULAR: Exam at this time reveals an irregular rhythm, bradycardic, blood pressure is 119/95 . I did not hear any gross murmurs, heaves, thrills, bruits or rubs. ABDOMEN: Shows obesity with positive bowel sounds. No organomegaly or masses are noted. EXTREMITIES: Femoral pulses are difficult to palpate. I could barely Doppler them, I could not palp ate radial pulses. She has discoloration of the lower extremities. Her feet are cold. I cannot pal shields any pedal pulses. Popliteal pulses were barely palpable. NEUROLOGIC: The patient is somewhat sedated and on the ventilator, but obviously was more alert prio r to being given some shorter acting propofol for the cardioversion. LABORATORY DATA: Did show evidence of myocardial infarction with an elevated troponin I of 6.0 with MV of 15.7. IMPRESSION: 1. Non-ST segment elevation myocardial infarction. This may be a posterior MS with significant ST s egment depression in the inferior lateral leads, also extending from V4 through V6. She may need to go another cardiac catheterization lab if she stabilized enough in order to go to the labs. 2. End-stage renal disease. She is on hemodialysis. 3. Diabetes, this has been dealt with the patient's primary care service. 4. Hypertension. She is now hypotensive. 5. History of hyperlipidemia. We will continue her medications when she is off the ventilator, if s he does not go to the cardiac catheterization lab today, sooner she is stable. She will need to unde rgo cardiac catheterization for full evaluation of her coronary status status to see whether or not s he may be a candidate for any intervention or bypass surgery. We will continue to monitor very caref abdias. We will make the decision shortly whether or not she will go to the cardiac photographic laboratory supervisor or not.
[2017-05-27 08:05] LABS: CKMB 97.9 ng/mL (0-6.6); Troponin I 103.455 ng/mL (< 0.028)
[2017-05-27] MEDS: Aspirin 300 MG Suppository PR SCH (08:22)
[2017-05-27] MEDS: Propofol 1,000 MG/100 ML VIAL IV PRN ×2 (08:22→14:38)
--- NOTE | 2017-05-27 09:07 | CON ---
DATE OF CONSULTATION: 05/26/2017 SERVICE: Pulmonary Medicine. REASON FOR CONSULTATION: Respiratory failure. HISTORY OF PRESENT ILLNESS: Patient is a 71-year-old female with past medical history significant for end-stage renal disease and coronary artery disease. She presented to the hospital because of increasing cough, congestion , shortness of breath over a period of 2 days. She had also been achy allover. She denied any fevers, chills, nausea or vomiting. Ultimately, she was in the emergency department and suddenly had a rapid decompensation. She became extraordinarily hypoxemic and lost blood pressure. She was subsequently intubated in the emergency department. She was resuscitated and on mechanical ventilation, she was doing quite well. She was in atrial fibrillation and had good blood pressure. She was started on Cardizem drip which seemed to control her rate ever so slightly. That being said, because of her lower relative instability, she was cardioverted. Following this, she decompensated abruptly. She lost pulse for a brief period of time, but recovered before chest compressions were performed. She was extraordinarily hypotensive and got 0.5 mg of epinephrine as a bolus. Dopamine was initiated. She was subsequently quite hypertensive. We back off on inotropic agents. At this time, I was called to assess the patient. Levophed drip was initiated and the patient started to stabilize slightly in the ICU. EKG was reviewed and there was concern for a posterior acute infarction. She was stabilized and once this occurred, she was brought down to laborer electroplating. PAST MEDICAL HISTORY: 1. End-stage renal disease. 2. Type 2 diabetes mellitus. 3. Hypertension. 4. Dyslipidemia. 5. Coronary artery disease. PAST SURGICAL HISTORY: 1. Excision of stomach mass. 2. Eye surgery. 3. Right arm fistula placement. ALLERGIES: No known drug allergies. MEDICATIONS: List of her inpatient medications was reviewed. Multiple updates were made. FAMILY HISTORY: Noncontributory. SOCIAL HISTORY: Negative for alcohol, tobacco or illicit drug use currently. She is . REVIEW OF SYSTEMS: This cannot be obtained as patient is currently intubated and sedated. PHYSICAL EXAMINATION: VITAL SIGNS: T-max 100.3, pulse 67, blood pressure 115/41, respirations 29, saturation 100% on 27% FiO2 and a PEEP of 5. HEENT: Normocephalic, atraumatic. Sclerae are white. Conjunctivae pink. Oral and nasal mucosa is moist without lesions. LUNGS: Decent air entry. There was originally no crackles, wheezing or prolonged expiratory phase, but after hypertensive event, she developed something similar to flash pulmonary edema. She developed crackles and prolonged expiratory phase with wheezing. HEART: Normal rate and irregular. ABDOMEN: Soft, nontender, nondistended, bowel sounds positive. MUSCULOSKELETAL: No cyanosis or clubbing. There is trace to 1+ pitting in the bilateral lower extremities. NEUROLOGIC: Grossly nonfocal. LABORATORY DATA: WBC 5.1, hemoglobin 10.9, and platelets 78,000. INR 1.5, PTT 47. D-dimer 13.95, pH 7.52, pCO2 28, pO2 242 on SIMV at 16 with tidal volume of 500 at the time. Creatinine 4.18. Anion gap 21, bicarbonate 22. Basic metabolic profile is otherwise unremarkable. Total bilirubin 1.5. AST is marginally elevated at 61. Otherwise, liver function studies are unremarkable. Ammonia is negative. Troponin was 6.02, but has up trended to 103 after catheterization. Plasma alcohol, acetaminophen, and salicylate were all unremarkable. Blood cultures x2 from the central line are negative to date. ASSESSMENT: 1. Acute hypoxic respiratory failure. 2. ST elevation myocardial infarction, suspected (posterior). 3. End-stage renal disease. IMAGIN. CT of the brain demonstrates no acute intracranial abnormality. There is some nonspecific mastoid effusion. 2. Chest x-ray demonstrates no acute cardiopulmonary abnormality. PLAN: The patient will remain on mechanical ventilation until she further stabilizes. We will watch for signs of infection and consider empiric antibiotics if she develops infections symptoms. Supportive care will be continued. Critical care time: 90 minutes. MTDD
--- NOTE | 2017-05-27 09:30 | PDOC.PN ---
- Subjective Encounter Start Date: 05/27/17 Encounter Start Time: 09:29 Subjective: intubated, sedated - Objective Resuscitation Status: Resuscitation Status FULL:Full Resuscitation MAR Reviewed: Yes Vital Signs & Weight: Vital Signs (12 hours) Temp Pulse Resp BP 05/27/17 08:02 67 05/27/17 08:00 103.3 F H 12 05/27/17 06:00 17 05/27/17 04:00 99.7 F H 17 05/27/17 03:00 65 20 120/38 L 05/27/17 02:00 68 17 105/45 L 05/27/17 01:00 60 17 103/38 L 05/27/17 00:00 99.1 F 65 14 104/33 L 05/26/17 23:00 80 22 H 148/45 H 05/26/17 22:30 73 19 131/42 L 05/26/17 22:00 67 22 H 101/35 L 05/26/17 21:30 78 20 137/45 L Weight Weight 158 lb 11.725 oz Most Recent Monitor Data Heart Rate from ECG 73 NIBP 81/22 NIBP BP-Mean 54 Respiration from ECG 25 SpO2 99 I&O: 05/26/17 05/27/17 05/28/17 06:59 06:59 06:59 Intake Total 3 Output Total 0 0 Balance 3 0 Result Diagrams: 05/27/17 03:30 05/27/17 03:30 Additional Labs: Accuchecks 05/27/17 05/27/17 05/27/17 09:06 07:12 03:26 POC Glucose 136 H 144 H 68 L 05/27/17 00:52 POC Glucose 75 EKG Reviewed by me: Yes (jcnal rhythm, marked diffuse ST depression) Phys Exam - Physical Examination Neck: no JVD rhonchi, nonfocal Cardiovascular: RRR, no significant murmur Gastrointestinal: soft, non-tender, positive bowel sounds Musculoskeletal: edema present Dx/Plan (1) Respiratory arrest Code(s): R09.2 - RESPIRATORY ARREST Status: Acute (2) NSTEMI (non-ST elevated myocardial infarction) Code(s): I21.4 - NON-ST ELEVATION (NSTEMI) MYOCARDIAL INFARCTION Status: Acute (3) Hypotension Status: Acute Qualifiers: Hypotension type: other hypotension type Qualified Code(s): I95.89 - Other hypotension (4) ESRD (end stage renal disease) Code(s): N18.6 - END STAGE RENAL DISEASE Status: Chronic (5) Lactic acidosis Code(s): E87.2 - ACIDOSIS Status: Acute (6) Diabetes mellitus with end stage renal disease Code(s): E11.22 - TYPE 2 DIABETES MELLITUS W DIABETIC CHRONIC KIDNEY DISEASE; N18.6 - END STAGE RENAL DISEASE Status: Chronic - Plan vent per pulmonology -: on levophed for hypotension -: HD per renal -: cont acccu/ss -: discuss with pulmonology, cardiology * .
[2017-05-27 09:31] LABS: Potassium 5.3 mmol/L (3.5-5.1)
--- NOTE | 2017-05-27 09:44 | PRG ---
DATE OF SERVICE: 05/27/2017 SUBJECTIVE: This is a 71-year-old female being seen for end-stage renal disease. The patient remain s intubated. PHYSICAL EXAMINATION: GENERAL: Patient is resting. VITAL SIGNS: Afebrile, pulse 73, breathing 16, blood pressure 124/61. HEAD/NECK: Normocephalic. Atraumatic. EYES: EOMI. No deformity. EARS: Clear. No ulcers. NOSE: Intact. No lesions. MOUTH: Clear. No discharge. THROAT: Clear. No exudate. LUNGS: Clear. No crackles. CARDIAC: S1, S2. No rub. ABDOMEN: Benign. BS+. GENITALIA/RECTUM: Cuellar absent. BACK/EXTREMITIES: Edema 0+ Ulcer- NEUROLOGICAL: The patient is resting. SKIN: Rash- Bruise- LYMPHATICS: Edema- Ulcer- LABORATORY DATA: Show hemoglobin 11.3, potassium is 5.3. ASSESSMENT AND RECOMMENDATIONS: 1. Stage 6 chronic kidney disease with hyperkalemia. We will recheck potassium and plan dialysis. 2. Metabolic acidosis. Plan dialysis. 3. Anemia, stable. 4. Coronary artery disease and myocardial infarction. Management per primary team. Overall, progno sis is extremely poor. No family member was available for any discussion.
[2017-05-27] MEDS ORDERED: Heparin 10,000 UNITS/ 10 ML VIAL SLOW IVP SCH (09:45)
[2017-05-27] MEDS ORDERED: Vancomycin HCl 750 MG in Sodium Chloride 0.9% 250 ML 250 ML IVPB SCH (10:00)
[2017-05-27] MEDS ORDERED: HOLD VANCOMYCIN FOR LEVEL >20 FS SCH (10:00)
[2017-05-27] MEDS ORDERED: Vancomycin Sliding Scale 1 EACH FS ONE (10:00)
[2017-05-27] MEDS ORDERED: Vancomycin HCl 1.25 GM in Sodium Chloride 0.9% 250 ML 250 ML IVPB SCH (10:00)
[2017-05-27] MEDS ORDERED: Vancomycin HCl 500 MG in Sodium Chloride 0.9% 100 ML IVPB SCH (10:00)
[2017-05-27] MEDS ORDERED: Vancomycin HCl 1 GM in Premix Bag 1 BAG IVPB SCH (10:00)
[2017-05-27 10:36] LABS: Hemoglobin 11.3 g/dL (12.0-16.0); Platelet Count 106 thou/uL (130-400)
[2017-05-27 10:38] LABS: Potassium 5.1 mmol/L (3.5-5.1)
[2017-05-27] MEDS: Piperacillin/Tazobactam 2.25 GM in Sodium Chloride 0.9% 100 ML IVPB SCH ×2 (10:39→19:00)
[2017-05-27] MEDS ORDERED: Sodium Bicarb 50 MEQ/50 ML Abboject 8.4% SYRINGE ONE ×2 (11:01→11:45)
[2017-05-27] MEDS: Heparin 25,000 units/D5W 500 ML IVPB SCH (11:34)
--- NOTE | 2017-05-27 11:47 | RAD ---
AP VIEW OF THE CHEST: Date: 05-27-17 Indication: History of cardiac arrest. Intubation. Comparison: 05-26-17 FINDINGS: Patient remains intubated with associated gastric catheter. Mild cardiomegaly and mild pulmonary vasc ulature congestion persists. There is some worsening opacity involving the left lung base obscuring t he left hemidiaphragm which could be related to subsegmental volume loss; however, aspiration or pneu monia cannot be entirely excluded. The right lung is clear. No pneumothorax is evident. IMPRESSION: 1. Worsening retrocardiac left lower lobe airspace opacity may be related to atelectasis, pneumonia, or aspiration. Recommend continued follow up. 2. Tubes and lines are stable. POS: TRU
[2017-05-27 16:02] LABS: Lactic Acid 2.3 mmol/L (0.5-2.2)
[2017-05-27] MEDS ORDERED: FLU VACC TS2017-18 (>65YR) 0.5 ML SYRINGE IM ONE (19:15)
[2017-05-27] MEDS ORDERED: Prevnar 13-Val Conj/PF 0.5 ML SYRINGE IM ONE (19:30)
[2017-05-27] MEDS: Atorvastatin Calcium 40 MG TAB PO SCH (20:26)
[2017-05-27] MEDS ORDERED: Vancomycin HCl 1 GM in Sodium Chloride 0.9% 250 ML 250 ML IVPB SCH (21:00)
--- NOTE | 2017-05-27 21:50 | PRG ---
DATE OF SERVICE: 05/27/2017 SERVICE: Pulmonary Medicine. INTERVAL HISTORY: The patient is doing fine from a respiratory standpoint. Overnight, she had a cardiac catheterization. There was no intervention performed as she has severe 3-vessel disease. She had a 100% RCA lesion. Apparently, there are some collaterals are back filling these areas. She had a 60% ejection fraction. She had a fever up to 103 this morning. Kurtz culture was sent and the patient was empirically initiated on vancomycin and Zosyn. She cannot provide any additional elements of the history because she remains on mechanical intubation, sedated. PHYSICAL EXAMINATION: VITAL SIGNS: Currently, temperature 100.3, but the T-max overnight was 103.3. Pulse 72, blood pressure 122/42, respirations 26, saturation 98% on 27% FIO2 and a PEEP of 5. GENERAL: Patient is intubated and sedated. HEENT: Normocephalic, atraumatic. Sclerae are white, conjunctivae pink. Oral and nasal mucosa is moist without lesions. LUNGS: Decent air entry. Rhonchi are present, but there is no prolonged expiratory phase or wheezing. No crackles. HEART: Normal rate, regular. ABDOMEN: Soft, nontender, nondistended. Bowel sounds are positive. MUSCULOSKELETAL: No cyanosis or clubbing. No pitting in the bilateral lower extremities. NEUROLOGIC: Grossly nonfocal. LABORATORY DATA: WBC 15.9, hemoglobin 11.3, platelets 115,000. PTT 67.5. A pH 7.52, pCO2 of 28, pO2 of 242. Lactate has cleared to 2.3. Glucose ranged from 136-160. Potassium 5.1. Troponin has gone up to 103. BUN 38, creatinine 5.49, bicarbonate 15, anion gap 30. Blood cultures x2 are unremarkable to date. Repeat blood cultures are pending. IMAGING: Chest x-ray demonstrates good placement of the endotracheal tube. Central line has not changed. She has an enlarging retrocardiac infiltrate. ASSESSMENT: 1. Acute hypoxic respiratory failure. 2. ST elevation myocardial infarction, possible. 3. End-stage renal disease. 4. Septic shock. 5. Healthcare-associated pneumonia, suspected. DISCUSSION, AND PLAN: We will initiate broad-spectrum antibiotics. In light of the fever, purulent sputum, antibiotics directed at healthcare associated organisms are going to be initiated. Supportive care will be continued for the time being. Ultimately, the patient has severe 3-vessel disease and if we stabilize her, she will be considered for revascularization procedure, but she is certainly not a good candidate for that thing right now. Pulmonary Critical Care will continue to follow. CRITICAL CARE TIME: Thirty minutes. ESSIE
[2017-05-28] MEDS: Piperacillin/Tazobactam 2.25 GM in Sodium Chloride 0.9% 100 ML IVPB SCH ×3 (03:00→18:30)
[2017-05-28 06:17] LABS: Anion Gap 18 mmol/L (10-20); BUN (Urea Nitrogen) 46 mg/dL (9.8-20.1); CK (CPK) 728 U/L (29-168); CKMB 31.2 ng/mL (0-6.6); Calc. Creatinine Clearance 10 mL/min (70-130); Calcium 5.7 mg/dL (7.8-10.44); Carbon Dioxide 15 mmol/L (23-31); Chloride 109 mmol/L (98-107); Critical Call CKMBM RESULT DECREASING; Estimated GFR-MDRD 7; Glucose 109 mg/dL (80-115); Potassium 3.4 mmol/L (3.5-5.1); Sodium 139 mmol/L (136-145)
[2017-05-28 06:31] LABS: Critical Call Chem Troponin I RESULT DECREASING; Troponin I 81.919 ng/mL (< 0.028)
--- NOTE | 2017-05-28 07:26 | EKG ---
Test Reason : Blood Pressure : / mmHG Vent. Rate : 071 BPM Atrial Rate : 075 BPM P-R Int : 000 ms QRS Dur : 100 ms QT Int : 402 ms P-R-T Axes : 000 027 141 degrees QTc Int : 436 ms Atrial fibrillation Marked ST abnormality, possible lateral subendocardial injury Abnormal ECG When compared with ECG of 26-MAY-2017 14:50, (Unconfirmed) Vent. rate has decreased BY 66 BPM Minimal criteria for Inferior infarct are no longer Present T wave inversion less evident in Inferior leads Confirmed by DR. Ciarra KANG ([id number]) on 05/28/2017 7:25:55 AM Referred By: KODAK Confirmed By:DR. Ciarra KANG
[2017-05-28 08:24] LABS: Vancomycin, Random 17.4 ug/mL (See Comment)
--- NOTE | 2017-05-28 08:56 | PRG ---
DATE OF SERVICE: 05/28/2017 SUBJECTIVE: This is a 71-year-old female being seen for end-stage renal disease. Overnight events reported. The patient went into ventricular tachycardia this morning. PHYSICAL EXAMINATION: GENERAL: Patient is resting. VITAL SIGNS: Afebrile, pulse 60, breathing at 16, blood pressure 121/42. OBJECTIVE: See above. Awake, alert, in no acute distress. GENERAL APPEARANCE AND MENTAL STATUS: Fair. HEAD/NECK: Normocephalic. Atraumatic. EYES: EOMI. No deformity. EARS: Clear. No ulcers. NOSE: Intact. No lesions. MOUTH: Clear. No discharge. THROAT: Clear. No exudate. LUNGS: Clear. No crackles. CARDIAC: S1, S2. No rub. ABDOMEN: Benign. BS+. GENITALIA/RECTUM: Cuellar absent. BACK/EXTREMITIES: Edema 0+ Ulcer- NEUROLOGICAL: The patient is resting. SKIN: Rash- Bruise- LYMPHATICS: Edema- Ulcer- LABORATORY: Hemoglobin 11.3, potassium is 3.4. ASSESSMENT AND RECOMMENDATIONS: 1. Chronic kidney disease stage 6 with ventricular tachycardia. We plan dialysis based on condition. 2. Hypokalemia. Recommend potassium replacement. 3. Metabolic acidosis. We will give an amp of sodium bicarbonate. Plan HD Overall, prognosis is extremely poor. No family member was available. [facility]
[2017-05-28] MEDS ORDERED: Clopidogrel Bisulfate 300 MG TAB PO SCH (09:00)
[2017-05-28] MEDS: Propofol 1,000 MG/100 ML VIAL IV PRN ×4 (09:27→21:27)
[2017-05-28] MEDS: Aspirin 300 MG Suppository PR SCH (09:28)
--- NOTE | 2017-05-28 09:39 | RAD ---
PORTABLE CHEST: Comparison: Prior day's study. History: Respiratory distress. History of cardiac arrest. FINDINGS: Endotracheal and NG tubes are in fairly satisfactory position. Endotracheal tube is only approximatel y 1 cm above the leann. The retrocardiac density appears less prominent on today's study than on the prior exam. Vascular engorgement is improved. IMPRESSION: Cardiomegaly with improving vascular engorgement and improvement to the retrocardiac parenchymal lung change. POS: OFF
[2017-05-28 09:49] LABS: Actual Bicarbonate (HCO3a) 20.6 mEq/L (22-26); Base Excess (BEa) -4.5 mEq/L (0 (+/-) 2.5); CO2 Tension 37.8 mmHg (35.0-45.0); Hematocrit-ABG 34.4 % (36.0-47.0); O2 Tension (PaO2) 302.4 mmHg (80.0-100.0); pH, Arterial 7.36 (7.35-7.45)
[2017-05-28 09:50] LABS: Calcium, Ionized 0.9 mmol/L (1.12-1.30); Puncture Site ALINE
[2017-05-28 10:16] LABS: Anion Gap 28 mmol/L (10-20); BUN (Urea Nitrogen) 59 mg/dL (9.8-20.1); Calc. Creatinine Clearance 7 mL/min (70-130); Calcium 7.7 mg/dL (7.8-10.44); Carbon Dioxide 17 mmol/L (23-31); Chloride 96 mmol/L (98-107); Estimated GFR-MDRD 5; Glucose 139 mg/dL (80-115); Magnesium 2.2 mg/dL (1.6-2.6); Potassium 4.7 mmol/L (3.5-5.1); Sodium 136 mmol/L (136-145)
[2017-05-28] MEDS: Insulin Regular 300 UNITS/3 ML VIAL SC PRN ×2 (10:19→16:01)
[2017-05-28] MEDS: Norepinephrine 8 MG in Sodium Chloride 0.9% 250 ML 250 ML IVPB SCH ×2 (10:30→21:43)
--- NOTE | 2017-05-28 10:52 | PRG ---
DATE OF SERVICE: 05/28/2017 SERVICE: Pulmonary Medicine. INTERVAL HISTORY: The patient was doing well from a respiratory standpoint. Overnight, she had mult iple events of supraventricular tachycardia. She has been difficult to control. She kept slipping b ack in and out of this rhythm. Dr. Mckenzie is working on maintaining her in a normal sinus rhythm. She cannot provide additional elements of the history. She remains encephalopathic and on sedating medications. PHYSICAL EXAMINATION: VITAL SIGNS: Afebrile with T-max yesterday of 103.3, but she has been afebrile since. Pulse 63, blo od pressure 97/37, respirations 15, saturation 97% on 27% FIO2 and a PEEP of 5. GENERAL: Patient is intubated and sedated. HEENT: Normocephalic, atraumatic. Sclerae are white, conjunctivae pink. Oral and nasal mucosa is m oist without lesions. LUNGS: Decent air entry. Some rhonchi. Minimal crackles are present. No wheezing. HEART: Normal and regular and interposed tachyarrhythmia. ABDOMEN: Soft, nontender, nondistended. Bowel sounds positive. MUSCULOSKELETAL: No cyanosis or clubbing. There is trace to 1+ pitting in the bilateral lower extre mities throughout. GENITOURINARY: Cuellar catheter in place. NEUROLOGIC: Grossly nonfocal. LABORATORY DATA: A pH 7.36, pCO2 37, pO2 302, which is likely erroneous as her FiO2 at that time was 23%. Creatinine 8.01 and up trending, BUN 59, anion gap 28, bicarbonate 17. Basic metabolic profil e is otherwise unremarkable. Calcium 7.7. Troponin is down trending to 82. Central line is growing gram positive leyda, likely contaminant. Blood cultures on three other occasions are negative. IMAGING: Chest x-ray demonstrates endotracheal tube roughly 1 cm above the level of the leann. The re is an enteric catheter coursing below the level of the diaphragm. Cardiomegaly is present with im proving vascular engorgement. Right-sided interstitial and a near consolidation is present at the [facility]. ASSESSMENT: 1. Acute hypoxic respiratory failure. 2. Possible ST elevation myocardial infarction. 3. End-stage renal disease. 4. Septic shock. 5. Healthcare-associated pneumonia, suspected. 6. Coronary artery disease, severe. DISCUSSION AND PLAN: The patient will remain on mechanical ventilation for an additional 24 hours gi rubio her cardiovascular instability. She will likely need dialysis today or tomorrow. We are going t o initiate Precedex, which may help to slow the heart rate down as well as provide a medication that will not suppress respiratory drive, but will produce comfort to the patient. Hopefully, this will a llow us to wean off of the propofol. Multiple ventilator adjustments have been made. An ABG was per formed demonstrating the patient is doing a very good job of controlling her acid base status. Once her cardiovascular instability resolves, we will be able to consider a spontaneous breathing trial. CRITICAL CARE TIME: 30 minutes.
--- NOTE | 2017-05-28 11:00 | PDOC.PN ---
- Subjective Encounter Start Date: 05/28/17 Encounter Start Time: 10:58 Subjective: intubated,sedated - Objective Resuscitation Status: Resuscitation Status FULL:Full Resuscitation MAR Reviewed: Yes Vital Signs & Weight: Vital Signs (12 hours) Temp Pulse Resp Pulse Ox 05/28/17 10:00 13 05/28/17 08:00 13 05/28/17 07:24 98.6 F 67 13 99 05/28/17 06:00 13 05/28/17 04:00 13 05/28/17 02:00 13 05/28/17 00:00 13 Weight Admit Weight 158 lb Weight 158 lb 11.725 oz Most Recent Monitor Data Heart Rate from ECG 63 NIBP 133/26 NIBP BP-Mean 52 Respiration from ECG 15 SpO2 97 I&O: 05/27/17 05/28/17 05/29/17 06:59 06:59 06:59 Intake Total 3 939 0 Output Total 0 100 0 Balance 3 839 0 Result Diagrams: 05/27/17 10:18 05/28/17 07:55 Additional Labs: Accuchecks 05/28/17 05/27/17 05/27/17 09:54 20:58 17:34 POC Glucose 202 H 143 H 160 H 05/27/17 14:53 POC Glucose 144 H Phys Exam - Physical Examination Cardiovascular: RRR with episodes of SVT Gastrointestinal: soft, positive bowel sounds Musculoskeletal: edema present Dx/Plan (1) Respiratory arrest Code(s): R09.2 - RESPIRATORY ARREST Status: Acute (2) NSTEMI (non-ST elevated myocardial infarction) Code(s): I21.4 - NON-ST ELEVATION (NSTEMI) MYOCARDIAL INFARCTION Status: Acute (3) Hypotension Status: Acute Qualifiers: Hypotension type: other hypotension type Qualified Code(s): I95.89 - Other hypotension (4) ESRD (end stage renal disease) Code(s): N18.6 - END STAGE RENAL DISEASE Status: Chronic (5) Lactic acidosis Code(s): E87.2 - ACIDOSIS Status: Acute (6) Diabetes mellitus with end stage renal disease Code(s): E11.22 - TYPE 2 DIABETES MELLITUS W DIABETIC CHRONIC KIDNEY DISEASE; N18.6 - END STAGE RENAL DISEASE Status: Chronic - Plan on pressors, iv amiodarone( SVT) -: on vent support, iv heparin infusion -: echo pending, poss CABG tomorrow * .
[2017-05-28 12:15] LABS: PTT Greater than 250.0 SEC (22.9-36.1)
[2017-05-28] MEDS: Amiodarone HCl 450 MG, Admixture Fee 1 EACH in Dextrose 5% in Water 250 ML IVPB SCH (14:29)
[2017-05-28] MEDS: Heparin 25,000 units/D5W 500 ML IVPB SCH (15:30)
[2017-05-28] MEDS: Atorvastatin Calcium 40 MG TAB PO SCH (21:11)
[2017-05-28] MEDS ORDERED: Diltiazem HCl 125 MG, Admixture Fee 1 EACH in Sodium Chloride 0.9% 100 ML IVPB SCH (22:15)
[2017-05-29] MEDS: Piperacillin/Tazobactam 2.25 GM in Sodium Chloride 0.9% 100 ML IVPB SCH ×3 (02:52→18:15)
[2017-05-29 05:01] LABS: #Basophils 0.1 thou/uL (0.0-0.2); #Eosinphils 0.1 thou/uL (0.0-0.7); #Lymphocytes 1.1 thou/uL (1.20-3.40); #Monocytes 0.7 thou/uL (0.11-0.59); #Neutrophils 11.7 thou/uL (1.40-6.50); %Basophils 0.4 % (0.0-1.0); %Eosinophils 0.8 % (0.0-10.0); %Monocytes 5.2 % (0.0-10.0); %Neutrophils 85.5 % (42.0-75.0); Hemoglobin 11.3 g/dL (12.0-16.0); Mean Corpuscular HGB CONC 33.4 g/dL (32.0-36.0); Mean Corpuscular Hemoglobin 32.2 pg (27.0-31.0); Mean Corpuscular Volume 96.4 fl (81.0-99.0); Mean Platelet Volume 9.5 fL (7.4-10.4); Platelet Count 101 thou/uL (130-400); RBC Distribution Width 14.4 % (11.5-14.5); White Blood Cell (WBC) Count 13.6 thou/uL (4.8-10.8)
[2017-05-29 05:15] LABS: Anion Gap 22 mmol/L (10-20); BUN (Urea Nitrogen) 32 mg/dL (9.8-20.1); Calc. Creatinine Clearance 12 mL/min (70-130); Calcium 8.2 mg/dL (7.8-10.44); Carbon Dioxide 22 mmol/L (23-31); Chloride 96 mmol/L (98-107); Estimated GFR-MDRD 8; Glucose 114 mg/dL (80-115); Potassium 4.5 mmol/L (3.5-5.1); Sodium 135 mmol/L (136-145)
[2017-05-29] MEDS: Amiodarone HCl 450 MG, Admixture Fee 1 EACH in Dextrose 5% in Water 250 ML IVPB SCH ×2 (06:03→22:28)
[2017-05-29] MEDS: Norepinephrine 8 MG in Sodium Chloride 0.9% 250 ML 250 ML IVPB SCH (06:04)
[2017-05-29] MEDS ORDERED: Albumin 5% 0 ML ONE (06:20)
[2017-05-29] MEDS ORDERED: Albumin 5% 500 ML ONE (06:29)
[2017-05-29] MEDS ORDERED: Heparin 10,000 UNITS/1 ML VIAL 30,000 UNITS in Sodium Chloride 0.9% 1,000 ML FS SCH (06:45)
[2017-05-29] MEDS ORDERED: Vecuronium 10 MG VIAL ONE ×3 (06:47→07:48)
[2017-05-29] MEDS ORDERED: Fentanyl 250 MCG/5 ML VIAL ONE (06:47)
[2017-05-29] MEDS ORDERED: Midazolam HCl 5 mg/5 ml Vial ONE (06:47)
[2017-05-29] MEDS ORDERED: Norepinephrine 8 MG/0.9% NS 0 ML ONE (06:47)
[2017-05-29] MEDS ORDERED: Dexmedetomidine 200 MCG/2 ML VIAL ONE (06:47)
[2017-05-29] MEDS ORDERED: Calcium Chloride 1 GM/10 ML Abboject SYRINGE ONE (07:48)
[2017-05-29] MEDS ORDERED: Aminocaproic Acid 5 GM/20 ML VIAL ONE (07:48)
[2017-05-29] MEDS ORDERED: Cardioplegic Soln 1,000 ML BAG ONE (07:48)
[2017-05-29] MEDS ORDERED: Papaverine 60 MG/2 ML VIAL ONE (07:48)
[2017-05-29] MEDS ORDERED: Heparin 30,000 units/30 ml VIAL ONE (07:48)
[2017-05-29] MEDS ORDERED: Sodium Bicarb 50 MEQ/50 ML VIAL ONE (07:48)
[2017-05-29] MEDS ORDERED: DOPamine 400 MG/10 ML VIAL ONE (07:48)
[2017-05-29] MEDS ORDERED: Protamine Sulfate 250 MG/25 ML VIAL ONE (07:48)
[2017-05-29] MEDS ORDERED: Thrombin 5000 UNITS/5 ML VIAL ONE (07:48)
[2017-05-29] MEDS ORDERED: EPINEPHrine 1 MG, Admixture Fee 1 EACH in Dextrose 5% in Water 250 ML IVPB SCH (08:15)
[2017-05-29] MEDS ORDERED: Insulin Regular 300 UNITS/3 ML VIAL ONE (10:04)
[2017-05-29] MEDS ORDERED: Morphine 4 MG/ML Carpuject SLOW IVP PRN (11:16)
[2017-05-29] MEDS ORDERED: Nitroglycerin 50 MG/250 ML BOT 250 ML IVPB PRN (11:16)
[2017-05-29] MEDS ORDERED: Mag-Al 1200 mg/1200 mg/30 ML UDCUP PO PRN (11:16)
[2017-05-29] MEDS ORDERED: Bisacodyl 5 MG TAB PO PRN (11:16)
[2017-05-29] MEDS ORDERED: Ondansetron HCl/PF 4 MG/2 ML Vial IVP PRN (11:16)
[2017-05-29] MEDS ORDERED: Fentanyl 100 MCG/2 ML VIAL SLOW IVP PRN ×2 (11:16)
[2017-05-29] MEDS ORDERED: Bisacodyl 10 MG SUPP PR PRN (11:16)
[2017-05-29] MEDS ORDERED: Post-Op Insulin Drip Protocol IVPB ONE (11:16)
[2017-05-29] MEDS ORDERED: Magnesium Sulfate 5 GM in Sodium Chloride 0.9% 1,000 ML IV SCH (11:16)
[2017-05-29] MEDS ORDERED: hydrALAZINE 20 MG/ML VIAL SLOW IVP PRN (11:16)
[2017-05-29] MEDS ORDERED: Acetaminophen 325 MG TAB PO PRN (11:16)
[2017-05-29] MEDS ORDERED: Guaifenesin DM 100-10/5 ML UDCUP PO PRN (11:16)
[2017-05-29] MEDS ORDERED: HYDROcodone/Acetaminophen 5/325 mg Tablet PO PRN (11:16)
[2017-05-29] MEDS ORDERED: DOPamine 400 MG/D5W 250 ML 250 ML IVPB PRN (11:16)
[2017-05-29] MEDS ORDERED: Dextrose 5% in Water 1,000 ML IV PRN (11:26)
[2017-05-29] MEDS ORDERED: Dextrose 50% Abboject 50 ML SYRINGE SLOW IVP PRN (11:26)
[2017-05-29 11:43] LABS: pH, Arterial 7.39 (7.35-7.45)
[2017-05-29 11:44] LABS: ALV-art Gradient 135.525 (0-20); Actual Bicarbonate (HCO3a) 21.5 mEq/L (22-26); CO2 Tension 36.3 mmHg (35.0-45.0); Hematocrit-ABG 34.5 % (36.0-47.0); O2 Tension (PaO2) 175.6 mmHg (80.0-100.0); Puncture Site LINE
[2017-05-29 11:59] LABS: INR-International Normal Ratio 2.4; PTT 41.8 SEC (22.9-36.1); Prothrombin Time 26.7 SEC (12.0-14.7)
[2017-05-29 12:06] LABS: Anion Gap 17 mmol/L (10-20); BUN (Urea Nitrogen) 33 mg/dL (9.8-20.1); Calc. Creatinine Clearance 15 mL/min (70-130); Calcium 7.6 mg/dL (7.8-10.44); Carbon Dioxide 22 mmol/L (23-31); Chloride 104 mmol/L (98-107); Estimated GFR-MDRD 9; Glucose 87 mg/dL (80-115); Potassium 4.7 mmol/L (3.5-5.1); Sodium 138 mmol/L (136-145)
[2017-05-29 12:16] LABS: Hemoglobin 11.7 g/dL (12.0-16.0); Mean Corpuscular HGB CONC 32.6 g/dL (32.0-36.0); Mean Corpuscular Hemoglobin 30.7 pg (27.0-31.0); Mean Corpuscular Volume 94.1 fl (81.0-99.0); Mean Platelet Volume 9.8 fL (7.4-10.4); Platelet Count 55 thou/uL (130-400); RBC Distribution Width 14.7 % (11.5-14.5); Red Blood Cell (RBC) Count 3.81 mill/uL (4.20-5.40); White Blood Cell (WBC) Count 13.5 thou/uL (4.8-10.8)
[2017-05-29 12:41] LABS: #Eosinphils 0.1 thou/uL (0.0-0.7); #Lymphocytes 2.1 thou/uL (1.20-3.40); #Monocytes 0.8 thou/uL (0.11-0.59); #Neutrophils 10.4 thou/uL (1.40-6.50); Anisocytosis MODERATE=16-30 cells (100X) (0-5/hpf); Band 15 % (5-11); Eosinophils 1 % (0-10); Lymphocytes 12 % (21-51); MDiff Complete? YES; Monocytes 7 % (0-10); Neutrophil 64 % (42-75); PLT Morphology Comment Appears Decreased; Polychromasia MODERATE = 3-4 cells (100X) (0-2/hpf); Reactive Lymphocytes 1 % (0-10)
[2017-05-29] MEDS: Propofol 1,000 MG/100 ML VIAL IV PRN (12:44)
[2017-05-29] MEDS: Sodium Chloride 0.9% 1,000 ML IV SCH (12:48)
--- NOTE | 2017-05-29 13:37 | OP ---
PREOPERATIVE DIAGNOSES: Coronary artery disease, status post inferior myocardial infarction. POSTOPERATIVE DIAGNOSES: Coronary artery disease, status post inferior myocardial infarction. PROCEDURE: Coronary bypass graft x3, left internal mammary artery to an LAD, saphenous vein graft to an OM and right coronary artery with the right coronary artery measuring about 1.5 to 2 mm, the LAD 1.5 and the OM 1.5 to 2 mm. SURGEON: Yakov Blevins M.D. TONGUE CARRIER: Dr. Nelson. FINDINGS: Patient had evidence of inferior wall myocardial infarction that was relatively recent wit h some dark george areas of infarct. PROCEDURE IN DETAIL: After adequate anesthesia had been obtained, patient was prepped and draped. Delmi Nelson did right greater saphenous vein harvest with endovascular vein technique while I performed a median sternotomy entering the right pleura in one small area. Left internal mammary artery was ta uri down, divided distally after heparinization treated with papaverine and passed posterior to the t hymus gland. Aorta and right atrium were cannulated. The right atrium had no electrical activity th roughout the case. It was also distended. Following institution of cardiopulmonary bypass, vessels were inspected for grafting. Aorta was cross-clamped and a liter of [place] cardioplegic solution g iven. Three distal anastomoses were then completed, following which, the cross-clamp was removed and the partial occluding clamp placed, and 2 proximal vein anastomoses completed. Following this, the proximal and distal anastomoses were inspected for hemostasis. Patient was then weaned from cardiopu lmonary bypass, cannulas removed, and protamine given systemically. Vessels lie nicely in the perica rdium. Mediastinal and right pleural drains were then placed following which the sternum was reappro ximated with #7 interrupted wire using vancomycin paste on the sternal edges, platelet-enriched blood , and platelet-poor plasma. Subcutaneous tissue and skin were closed in layers.
--- NOTE | 2017-05-29 13:53 | RAD ---
ONE VIEW CHEST: HISTORY: Status post open heart surgery. COMPARISON: 05/28/2017 FINDINGS: A portable supine chest radiograph demonstrates an endotracheal tube, a nasogastric tube, sternotomy wires, a left sided internal jugular central venous catheter, and a right sided chest tube. Findings are compatible with recent open heart surgery. There is calcification of the mitral annulus. There are patchy interstitial opacities throughout the lung parenchyma. There is partial obscuration of t he right hemidiaphragm. There is no pneumothorax or osseous abnormality. IMPRESSION: Findings compatible with recent open heart surgery. POS: [place]
--- NOTE | 2017-05-29 13:54 | PRG ---
DATE OF SERVICE: 05/29/2017 SUBJECTIVE: This is a 71-year-old female being seen for end-stage renal disease. CABG today. PHYSICAL EXAMINATION: GENERAL: Patient is resting. VITAL SIGNS: Pulse 67, breathing 16, blood pressure 156/31. HEENT: Head, normocephalic. NECK: Supple. CARDIOVASCULAR: Shows s1 s2 . EXTREMITIES: No edema. LABORATORY DATA: Hemoglobin 11.3. Potassium is 4.5. ASSESSMENT AND PLAN: 1. Stage 6 chronic kidney disease. We will plan dialysis tomorrow. 2. Hypertension, stable. 3. Anemia, stable. 4. Coronary artery disease, management per primary team. MTDD
--- NOTE | 2017-05-29 16:25 | PRG ---
DATE OF SERVICE: 05/29/2017 SERVICE: Pulmonary Medicine. INTERVAL HISTORY: The patient went for coronary artery bypass graft this morning. She returned obvi ously on mechanical ventilation. She is on pressors. Her blood pressures are marginal. She is not currently responding to any noxious stimuli. Her pupils are equal, round, and reactive. She is not overbreathing the ventilator at this time. Otherwise, there has been no interval change to her condi tion. PHYSICAL EXAMINATION: VITAL SIGNS: Afebrile, pulse 80, blood pressure 99/39, respirations 23, saturation 100% on 27% FIO2 and a PEEP of 5. GENERAL: Patient is intubated. She is under the influence of minimal sedation. HEENT: Normocephalic, atraumatic. Sclerae are white, conjunctivae pink. Oral and nasal mucosa is m oist without lesions. LUNGS: Decent air entry. Rhonchi are present. No prolonged expiratory phase is appreciated. HEART: Normal rate, regular. She is currently paced with both A and V wire. ABDOMEN: Soft, nontender, nondistended. Bowel sounds are positive. MUSCULOSKELETAL: No cyanosis or clubbing. There is no pitting in the bilateral lower extremities. NEUROLOGIC: Grossly nonfocal. LABORATORY DATA: WBC 13.5, hemoglobin 11.7, platelets 55,000. INR 2.4. PH 7.39, pCO2 36, pO2 175. This is on 50% FIO2 and a PEEP of 5. Creatinine 4.76, BUN 33, bicarbonate 22. Basic metabolic prof ile is otherwise unremarkable. One out of four blood cultures growing contaminant. IMAGING: Chest x-ray demonstrates findings compatible with recent heart surgery. There is no acute cardiopulmonary abnormality otherwise identified. Thoracostomy drains are in place. Central line is stable. Median sternotomy wires are now present. Endotracheal tube is in good position. ASSESSMENT: 1. Acute hypoxic respiratory failure. 2. ST elevation myocardial infarction. 3. End-stage renal disease. 4. Coronary artery disease, status post coronary artery bypass graft. 5. Septic shock, improving. 6. Healthcare-associated pneumonia. PLAN: We will continue antibiotics and nebulized medications. She will remain on mechanical ventila tion through tonight. We will try to withhold sedation, and wake her up smoothly. If she meets benita strickland tomorrow morning, we will put her on spontaneous breathing trial and extubation will be consider ed. Pulmonary and Critical Care will continue to follow while the patient remains in this location. CRITICAL CARE TIME: 30 minutes.
--- NOTE | 2017-05-29 16:51 | EKG ---
Test Reason : S/P CABG Blood Pressure : / mmHG Vent. Rate : 040 BPM Atrial Rate : 028 BPM P-R Int : 000 ms QRS Dur : 090 ms QT Int : 502 ms P-R-T Axes : 000 -02 235 degrees QTc Int : 409 ms Atrial fibrillation with slow ventricular response Abnormal ECG When compared with ECG of 27-MAY-2017 06:40, Vent. rate has decreased BY 31 BPM T wave inversion more evident in Inferior leads T wave inversion more evident in Anterior leads Confirmed by DR. Ciarra KANG ([id number]) on 05/29/2017 4:51:19 PM Referred By: GISELA Confirmed By:DR. Ciarra KANG
--- NOTE | 2017-05-29 17:07 | PDOC.PN ---
- Subjective Encounter Start Date: 05/29/17 Encounter Start Time: 17:03 Ms. Randle was seen in follow-up of CAD s/p CABG. She is intubated and sedated. - Objective Resuscitation Status: Resuscitation Status FULL:Full Resuscitation MAR Reviewed: Yes Vital Signs & Weight: Vital Signs (12 hours) Temp Pulse Resp BP Pulse Ox 05/29/17 16:00 97.9 F 13 05/29/17 15:19 80 99/39 L 05/29/17 14:00 13 05/29/17 13:15 80 109/46 L 05/29/17 12:00 12 05/29/17 07:54 98.3 F 67 13 98 05/29/17 07:00 98.3 F 05/29/17 06:00 13 Weight Admit Weight 158 lb Weight 184 lb 11.958 oz Most Recent Monitor Data Heart Rate from ECG 80 NIBP 156/31 NIBP BP-Mean 83 Respiration from ECG 5 SpO2 100 I&O: 05/28/17 05/29/17 05/30/17 06:59 06:59 06:59 Intake Total 939 1973 0 Output Total 100 0 120 Balance 839 1973 -120 Result Diagrams: 05/29/17 11:40 05/29/17 11:40 Additional Labs: Accuchecks 05/29/17 05/29/17 05/29/17 16:20 11:12 10:48 POC Glucose 62 L 92 105 05/29/17 05/29/17 05/29/17 10:03 09:27 08:22 POC Glucose 145 H 116 H 116 H 05/29/17 05/29/17 05/28/17 03:42 00:56 21:11 POC Glucose 91 104 109 Phys Exam - Physical Examination HEENT: PERRLA Respiratory: no wheezing, no rales, no rhonchi, clear to auscultation bilateral Cardiovascular: RRR, no significant murmur Gastrointestinal: soft, positive bowel sounds Musculoskeletal: edema present trace edema, and chronic venous stasis changes Dx/Plan (1) Diabetes mellitus type 2 in nonobese Code(s): E11.9 - TYPE 2 DIABETES MELLITUS WITHOUT COMPLICATIONS Status: Acute (2) NSTEMI (non-ST elevated myocardial infarction) Code(s): I21.4 - NON-ST ELEVATION (NSTEMI) MYOCARDIAL INFARCTION Status: Acute (3) Respiratory arrest Code(s): R09.2 - RESPIRATORY ARREST Status: Acute (4) ESRD (end stage renal disease) Code(s): N18.6 - END STAGE RENAL DISEASE Status: Chronic - Plan * CAD- she is s/p 3 vessel CABG- post op management per CV surgery * DM- continue post -op insulin protocol * Ventilator management as per Pulmonary * Will follow.
[2017-05-29 17:56] LABS: Hemoglobin 12.8 g/dL (12.0-16.0)
[2017-05-29 18:17] LABS: Potassium 5.1 mmol/L (3.5-5.1)
[2017-05-29] MEDS: Famotidine/PF 20 mg/2ml Vial SLOW IVP SCH (20:31)
[2017-05-29] MEDS: Atorvastatin Calcium 40 MG TAB PO SCH (20:31)
[2017-05-30] MEDS: Piperacillin/Tazobactam 2.25 GM in Sodium Chloride 0.9% 100 ML IVPB SCH ×3 (03:01→19:47)
[2017-05-30] MEDS: Insulin Regular 300 UNITS/3 ML VIAL SC PRN (04:09)
[2017-05-30] MEDS: Norepinephrine 8 MG in Sodium Chloride 0.9% 250 ML 250 ML IVPB PRN ×2 (04:10→14:24)
[2017-05-30 05:21] LABS: Anion Gap 23 mmol/L (10-20); BUN (Urea Nitrogen) 44 mg/dL (9.8-20.1); Calc. Creatinine Clearance 13 mL/min (70-130); Calcium 8.3 mg/dL (7.8-10.44); Carbon Dioxide 19 mmol/L (23-31); Chloride 101 mmol/L (98-107); Estimated GFR-MDRD 7; Glucose 149 mg/dL (80-115); Potassium 5.8 mmol/L (3.5-5.1); Sodium 137 mmol/L (136-145)
[2017-05-30 06:12] LABS: Anisocytosis SLIGHT = 6-15 cells (100X) (0-5/hpf); Band 9 % (5-11); Hemoglobin 12.5 g/dL (12.0-16.0); Lymphocytes 6 % (21-51); MDiff Complete? YES; Mean Corpuscular HGB CONC 33.1 g/dL (32.0-36.0); Mean Corpuscular Hemoglobin 31.4 pg (27.0-31.0); Mean Corpuscular Volume 94.8 fl (81.0-99.0); Mean Platelet Volume 9.4 fL (7.4-10.4); Monocytes 5 % (0-10); Neutrophil 80 % (42-75); Nucleated RBC 8 % (0); PLT Morphology Comment Appears Decreased; Platelet Count 84 thou/uL (130-400); RBC Distribution Width 15.3 % (11.5-14.5); Red Blood Cell (RBC) Count 3.96 mill/uL (4.20-5.40); White Blood Cell (WBC) Count 14.1 thou/uL (4.8-10.8)
--- NOTE | 2017-05-30 08:05 | RAD ---
FRONTAL VIEW CHEST: COMPARISON: Previous day. INDICATION: Status post heart surgery. FINDINGS: Supportive lines and tubes remain, and are grossly stable. Slight increase of hazy density of the ri ght lung base with adjacent prominent perihilar opacification. Consolidative opacification at the le ft lung base obscures the left hemidiaphragm. IMPRESSION: Postoperative chest with prominent edema, with superimposed bibasilar opacities favoring pleural flui d with adjacent atelectasis. POS: H
[2017-05-30] MEDS: Aspirin 325 MG TAB PO SCH (08:10)
--- NOTE | 2017-05-30 08:31 | PRG ---
DATE OF SERVICE: 05/30/2017 SUBJECTIVE: A 71-year-old female being seen for end-stage renal disease. The patient had a CABG yesterday. PHYSICAL EXAMINATION: GENERAL: Patient is resting. VITAL SIGNS: Afebrile, pulse 70, breathing 16, blood pressure 95/32. OBJECTIVE: See above. Awake, alert, in no acute distress. GENERAL APPEARANCE AND MENTAL STATUS: Fair. HEAD/NECK: Normocephalic. Atraumatic. EYES: EOMI. No deformity. EARS: Clear. No ulcers. NOSE: Intact. No lesions. MOUTH: Clear. No discharge. THROAT: Clear. No exudate. LUNGS: Clear. No crackles. CARDIAC: S1, S2. No rub. ABDOMEN: Benign. BS+. GENITALIA/RECTUM: Cuellar absent. BACK/EXTREMITIES: Edema 0+ Ulcer- NEUROLOGICAL: Alert and motor intact. SKIN: Rash- Bruise- LYMPHATICS: Edema- Ulcer- LABORATORY: Hemoglobin 12.5, potassium 5.8. ASSESSMENT AND RECOMMENDATIONS: 1. Stage 6 chronic kidney disease with hyperkalemia, plan dialysis. 2. Hypertension. The patient was unable to tolerate ultrafiltration. 3. Anemia, stable. 4. Medication based on glomerular filtration rate are appropriate. Overall, prognosis is poor. MTDD
--- NOTE | 2017-05-30 08:55 | PDOC.PN ---
- Subjective Encounter Start Date: 05/30/17 Encounter Start Time: 08:54 Ms. Randle is post CABG and intubated. - Objective Resuscitation Status: Resuscitation Status FULL:Full Resuscitation MAR Reviewed: Yes Vital Signs & Weight: Vital Signs (12 hours) Temp Pulse Resp BP Pulse Ox 05/30/17 07:57 71 96/32 L 05/30/17 07:49 13 05/30/17 07:40 98.8 F 71 13 97 05/30/17 07:00 98.8 F 05/30/17 06:00 13 05/30/17 04:00 13 05/30/17 03:00 99.0 F 05/30/17 02:08 71 98/42 L 05/30/17 02:00 13 05/30/17 00:00 13 05/29/17 23:00 98.0 F 05/29/17 22:14 65 105/48 L 05/29/17 22:00 13 Weight Admit Weight 158 lb Weight 195 lb 5.273 oz Most Recent Monitor Data Heart Rate from ECG 71 NIBP 156/31 NIBP BP-Mean 83 Respiration from ECG 15 SpO2 93 I&O: 05/29/17 05/30/17 05/31/17 06:59 06:59 06:59 Intake Total 1972 1708 Output Total 0 620 0 Balance 1972 1088 0 Result Diagrams: 05/30/17 04:00 05/30/17 04:00 Additional Labs: Accuchecks 05/30/17 05/30/17 05/30/17 08:14 04:02 01:03 POC Glucose 107 137 H 98 05/29/17 05/29/17 05/29/17 19:45 16:20 11:12 POC Glucose 94 62 L 92 05/29/17 05/29/17 05/29/17 10:48 10:03 09:27 POC Glucose 105 145 H 116 H Phys Exam - Physical Examination HEENT: PERRLA Respiratory: no rales, wheezing present Cardiovascular: RRR, no significant murmur distant heart tones Gastrointestinal: soft, non-tender, positive bowel sounds Musculoskeletal: edema present + upper extremity edema Dx/Plan (1) Diabetes mellitus type 2 in nonobese Code(s): E11.9 - TYPE 2 DIABETES MELLITUS WITHOUT COMPLICATIONS Status: Acute (2) NSTEMI (non-ST elevated myocardial infarction) Code(s): I21.4 - NON-ST ELEVATION (NSTEMI) MYOCARDIAL INFARCTION Status: Acute (3) Respiratory arrest Code(s): R09.2 - RESPIRATORY ARREST Status: Acute (4) ESRD (end stage renal disease) Code(s): N18.6 - END STAGE RENAL DISEASE Status: Chronic - Plan * CAD s/p 3 vessel CABG- she remains intubated * Continue post Op- management as per CV Surgery * DM- blood glucose is controlled * HTN- blood pressure is controlled * ESRD- she is currently undergoing dialysis * Prognosis is guarded.
[2017-05-30 11:54] LABS: Vancomycin, Random 6.6 ug/mL (See Comment)
--- NOTE | 2017-05-30 12:13 | PQF ---
CLINICAL DOCUMENTATION IMPROVEMENT CLARIFICATION FORM: ICD-10 Updated PLEASE DO AN ADDENDUM TO THE PROGRESS NOTE WITH ANY DOCUMENTATION UPDATES OR ADDITIONS AND CARRY THROUGH TO DC SUMMARY. THANK YOU. DATE: 05/30/17 ATTN: Dr. Astorga Please exercise your independent, professional judgment in responding to the clarification form. Clinical indicators are provided on the bottom of this form for your review Please check appropriate box(es): [X ] Sepsis due to: __Healthcare Associated Pneumonia [ ] Severe sepsis with acute organ dysfunction of: (Examples: respiratory failure, encephalopathy, acute kidney failure, other) [ ] Septic Shock [ ] Localized infection without sepsis [ ] Other diagnosis [ ] Unable to determine In addition, please specify: Present on Admission (POA): [X ] Yes [ ] No [ ] Unable to determine For continuity of documentation, please document condition throughout progress notes and discharge summary. Thank You. CLINICAL INDICATORS - SIGNS / SYMPTOMS / LABS H&P: RESPIRATORY ARREST, WAS IMMEDIATELY INTUBATED BY ER PHYSICIAN. LACTIC ACID 6.5 CATIA DESIGNER PN 05/27: TEMP. 100.3, BUT T-MAX OVERNIGHT WAS 103.3. CHEST X-RAY: SHE HAS AN ENLARGING RETROCARDIAC INFILTRATE ST ELEVATION MYOCARDIAL INFARCTION, POSSIBLE SEPTIC SHOCK HEALTHCARE-ASSOCIATED PNEUMONIA, SUSPECTED. PULMONOLOGY PN 05/29: ST ELEVATION MYOCARDIAL INFARCTION CAD, S/P CABG SEPTIC SHOCK, IMPROVING HEALTHCARE-ASSOCIATED PNEUMONIA RISKS: H&P: HX ESRD ON HD, DM 2, HTN. HX CAD. ACUTE RESP. FAILURE W/ PULMONARY ARREST. NON STEMI. CAD. LACTIC ACIDOSIS. TREATMENT: ORDER 05/27: IV ZOSYN 2.25 GM IV 0300, 1100, 1900 CPOE 05/29: LEVOPHED 8 MG IV TO MAINTAIN SBP>90. Thank you, Alice (This form is maintained as a part of the permanent medical record) 2014 [employer]. All Rights Reserved Alice Albrecht RN, BSN [email or web address] Office: [phone] [facility]
[2017-05-30] MEDS ORDERED: Amiodarone HCl 150 MG, Admixture Fee 1 EACH in Dextrose 5% in Water 100 ML IVPB SCH ×3 (13:15→14:30)
[2017-05-30] MEDS ORDERED: Midazolam HCl 2 mg/2 ml Vial ONE (14:11)
[2017-05-30] MEDS ORDERED: Digoxin 0.5 MG/2 ML AMP ONE (14:27)
[2017-05-30] MEDS: Amiodarone HCl 450 MG, Admixture Fee 1 EACH in Dextrose 5% in Water 250 ML IVPB SCH ×2 (14:27→18:45)
[2017-05-30] MEDS ORDERED: Midazolam HCl 2 mg/2 ml Vial SLOW IVP SCH (14:30)
--- NOTE | 2017-05-30 15:27 | PRG ---
DATE OF SERVICE: 05/30/2017 SERVICE: Pulmonary Medicine. INTERVAL HISTORY: The patient is doing okay from a respiratory standpoint. Heart simpson, things are n ot doing so well. She remains on pressors. She is having a hard time maintaining blood pressures. She underwent dialysis today. They had a difficult time pulling any fluid obviously. That being ying d, she was able to go for the full treatment. She cannot provide any additional elements of the hist ory and mentation simpson, she has not really been coming around before the surgery. OBJECTIVE: VITAL SIGNS: Afebrile, pulse 75, blood pressure 97/32, respirations 24, saturation 96% on 31% FIO2 a nd a PEEP of 5. GENERAL: The patient is intubated. HEENT: Normocephalic, atraumatic. Sclerae are white, conjunctivae pink. Oral mucosa is moist witho ut lesions. LUNGS: Decent air entry. There is no prolonged expiratory phase. Rhonchi are present as well as cr ackles. HEART: Normal rate, regular. ABDOMEN: Soft, nontender, nondistended. Bowel sounds are positive. MUSCULOSKELETAL: No cyanosis or clubbing. There is 2+ pitting throughout most of the extremities. It is more extensive in the upper extremities. NEUROLOGIC: Grossly nonfocal. She does withdraw from noxious stimuli in upper and lower extremities . She is overbreathing the ventilator. She has a cough and gag. LABORATORY DATA: WBC 14.1, hemoglobin 12.5, platelets 84,000 and improving. Band count has improved to 9%, neutrophil count is 80%. INR 2.4. A pH 7.39, pCO2 of 36.3, pO2 of 176. Creatinine 5.8, BUN 44, anion gap 23, bicarbonate 19, potassium 5.8. Basic metabolic profile is otherwise unremarkable. Central line is growing Corynebacterium but 3 subsequent blood cultures are unremarkable. IMAGING: Chest x-ray demonstrates a mediastinal drain. Endotracheal tube is 1-2 cm above the level of the leann. There is likely a right-sided pleural effusion present. Sternotomy wires are again n oted. She has a left IJ central venous catheter terminates in good position. ASSESSMENT: 1. Acute hypoxic respiratory failure. 2. ST elevation myocardial infarction. 3. Septic shock. 4. Healthcare-associated pneumonia. 5. Coronary artery disease, status post coronary artery bypass graft, postoperative day #1. PLAN: We will continue nebulized medications and antibiotics. She will remain on mechanical ventila tion as her mentation prevents us from extubating her. We will wean pressors as tolerated. Hopefull y, over the next 24-48 hours, the patient will be in a position where we can extubate her, but I am b eginning to wonder about whether or not she has developed an anoxic injury to the brain. Time will t ell on this of course. CRITICAL CARE TIME: 30 minutes.
[2017-05-30] MEDS: Sodium Chloride 0.9% 1,000 ML IV SCH (16:38)
[2017-05-30] MEDS ORDERED: Digoxin 0.5 MG/2 ML AMP SLOW IVP SCH (16:45)
[2017-05-30] MEDS: Famotidine/PF 20 mg/2ml Vial SLOW IVP SCH (20:08)
[2017-05-30] MEDS: Atorvastatin Calcium 40 MG TAB PO SCH (20:08)
--- NOTE | 2017-05-30 20:20 | OP ---
ELECTRICAL CARDIOVERSION This patient is a 71-year-old woman with paroxysmal atrial fibrillation. The patient was shocked wit h 100 joules of electricity on several occasions and then 150 mg of synchronized electricity. The pa tient would temporarily go into a sinus rhythm but would return to atrial fibrillation. IMPRESSION: Unsuccessful electrocardioversion.
[2017-05-31] MEDS ORDERED: Vasopressin 40 UNIT, Admixture Fee 1 EACH in Sodium Chloride 0.9% 100 ML IV SCH (02:15)
[2017-05-31] MEDS: Piperacillin/Tazobactam 2.25 GM in Sodium Chloride 0.9% 100 ML IVPB SCH ×3 (03:55→18:39)
[2017-05-31 05:46] LABS: Anion Gap 19 mmol/L (10-20); BUN (Urea Nitrogen) 25 mg/dL (9.8-20.1); Calc. Creatinine Clearance 19 mL/min (70-130); Calcium 8.3 mg/dL (7.8-10.44); Carbon Dioxide 23 mmol/L (23-31); Chloride 100 mmol/L (98-107); Estimated GFR-MDRD 12; Glucose 159 mg/dL (80-115); Magnesium 2.3 mg/dL (1.6-2.6); Potassium 4.5 mmol/L (3.5-5.1); Sodium 137 mmol/L (136-145)
[2017-05-31 05:56] LABS: Hemoglobin 11.3 g/dL (12.0-16.0); Mean Corpuscular HGB CONC 32.5 g/dL (32.0-36.0); Mean Corpuscular Volume 95.1 fl (81.0-99.0); Mean Platelet Volume 8.3 fL (7.4-10.4); Platelet Count 73 thou/uL (130-400); RBC Distribution Width 15.2 % (11.5-14.5); Red Blood Cell (RBC) Count 3.65 mill/uL (4.20-5.40); White Blood Cell (WBC) Count 15.7 thou/uL (4.8-10.8)
[2017-05-31 05:57] LABS: Band 4 % (5-11); Lymphocytes 10 % (21-51); MDiff Complete? YES; Monocytes 4 % (0-10); Neutrophil 82 % (42-75); PLT Morphology Comment Appears Decreased
--- NOTE | 2017-05-31 07:46 | PDOC.PN ---
- Subjective Encounter Start Date: 05/31/17 Encounter Start Time: 07:45 Ms. Randle was seen today in follow-up. She is post CABG for 3 Vessel CAD. She is intubated. She has been minimally responsive. She did crinkle her forehead when I shined a light in her eyes. - Objective Resuscitation Status: Resuscitation Status FULL:Full Resuscitation MAR Reviewed: Yes Vital Signs & Weight: Vital Signs (12 hours) Temp Pulse Resp Pulse Ox 05/31/17 06:00 13 05/31/17 04:00 98.8 F 13 05/31/17 03:04 104 H 05/31/17 00:00 99.6 F 05/30/17 22:32 96 05/30/17 22:00 20 05/30/17 20:00 98.8 F 100 14 100 Weight Admit Weight 158 lb Weight 195 lb 5.273 oz Most Recent Monitor Data Heart Rate from ECG 113 NIBP 153/47 NIBP BP-Mean 71 Respiration from ECG 21 SpO2 99 I&O: 05/30/17 05/31/17 06/01/17 06:59 06:59 06:59 Intake Total 1708 1683.7 Output Total 620 200 Balance 1088 1483.7 Result Diagrams: 05/31/17 04:55 05/31/17 04:55 Additional Labs: Accuchecks 05/31/17 05/30/17 05/30/17 00:10 21:01 15:59 POC Glucose 128 H 116 H 102 05/30/17 05/30/17 11:21 08:14 POC Glucose 104 107 Phys Exam - Physical Examination HEENT: PERRLA + Ronchi, and rales at the bases Tachycardic, no murmurs or rubs Gastrointestinal: soft, non-tender, positive bowel sounds Musculoskeletal: edema present + generalized edema Dx/Plan (1) Diabetes mellitus type 2 in nonobese Code(s): E11.9 - TYPE 2 DIABETES MELLITUS WITHOUT COMPLICATIONS Status: Acute (2) NSTEMI (non-ST elevated myocardial infarction) Code(s): I21.4 - NON-ST ELEVATION (NSTEMI) MYOCARDIAL INFARCTION Status: Acute (3) Respiratory arrest Code(s): R09.2 - RESPIRATORY ARREST Status: Acute (4) ESRD (end stage renal disease) Code(s): N18.6 - END STAGE RENAL DISEASE Status: Chronic (5) Healthcare-associated pneumonia Code(s): J18.9 - PNEUMONIA, UNSPECIFIED ORGANISM Status: Acute (6) Sepsis Code(s): A41.9 - SEPSIS, UNSPECIFIED ORGANISM Status: Resolved Qualifiers: Sepsis type: sepsis due to unspecified organism Qualified Code(s): A41.9 - Sepsis, unspecified organism - Plan * CAD - s/p 3 vessel CABG- hemodynamically stable * PAF- she had a failed cardioversion attempt - heart rate has been variable on an Amiodarone drip * Healthcare Associated Pneumonia with respiratory failure- she remains intubated, and will continue Zosyn and Vancomycin * ESRD- continue dialysis as per Nephrology * DM- blood glucose is stable
[2017-05-31] MEDS: Aspirin 325 MG TAB PO SCH (09:13)
[2017-05-31] MEDS: Amiodarone HCl 450 MG, Admixture Fee 1 EACH in Dextrose 5% in Water 250 ML IVPB SCH ×3 (09:18→23:49)
--- NOTE | 2017-05-31 10:13 | RAD ---
RADIOGRAPH CHEST 1 VIEW: Date: 05/31/17. Time: 5:09 a.m. HISTORY: A 71-year-old female status post open heart surgery. COMPARISON: 05/30/17, 5:23 a.m. FINDINGS: Defibrillation paddle now overlies the left mid and upper lung zones. There has been no other interv al change. IMPRESSION: 1. Ongoing cardiac defibrillation. 2. No other interval change. YVONNE [] POS: FRANKLIN
--- NOTE | 2017-05-31 10:41 | PRG ---
DATE OF SERVICE: 05/31/2017 SUBJECTIVE: A 71-year-old female being seen for end-stage renal disease. The patient became unstable during dialysis. OBJECTIVE: GENERAL: The patient is resting. VITAL SIGNS: Afebrile, pulse 90, breathing 16, blood pressure 134/45. GENERAL APPEARANCE AND MENTAL STATUS: Fair. HEAD/NECK: Normocephalic. Atraumatic. EYES: EOMI. No deformity. EARS: Clear. No ulcers. NOSE: Intact. No lesions. MOUTH: Clear. No discharge. THROAT: Clear. No exudate. LUNGS: Clear. No crackles. CARDIAC: S1, S2. No rub. ABDOMEN: Benign. BS+. GENITALIA/RECTUM: Cuellar absent. BACK/EXTREMITIES: Edema 0+ Ulcer- NEUROLOGICAL: The patient is resting. SKIN: Rash- Bruise- LYMPHATICS: Edema- Ulcer- LABORATORY: Show potassium 4.5. ASSESSMENT AND PLAN: 1. Stage 6 chronic kidney disease. We will plan dialysis as needed. 2. Hypertension, stable. 3. Anemia, stable. 4. Medications based on glomerular filtration rate are appropriate. No indication for dialysis today. MTDD
--- NOTE | 2017-05-31 12:06 | PRG ---
DATE OF SERVICE: 05/31/2017 SERVICE: Pulmonary Medicine. INTERVAL HISTORY: The patient is doing okay from a respiratory standpoint. She cannot provide any additional elements of the history. She is starting to follow some simple commands. She wakes up and will open her eyes and closes her eyes on command. Other than that, she demonstrates extraordinary weakness. There were no overnight events ever since she got cardioverted yesterday on multiple occasions. She then went into atrial fibrillation. Slowly, we reestablished rate control. She remains in AFIB. PHYSICAL EXAMINATION: VITAL SIGNS: Afebrile, pulse 87, blood pressure 134/52, respirations 23, saturation 100% on 27% FiO2 and a PEEP of 5. GENERAL: Patient is intubated and sedated. HEENT: Normocephalic, atraumatic. Sclerae are white, conjunctivae pink. Oral mucosa is moist without lesions. LUNGS: Bilateral rhonchi are present. HEART: Normal rate and regular. ABDOMEN: Soft, nontender, nondistended. Bowel sounds are positive. MUSCULOSKELETAL: No cyanosis or clubbing. There is diffuse pitting throughout. GENITOURINARY: Cuellar catheter in place. NEUROLOGIC: Grossly nonfocal. LABORATORY DATA: WBC 15.7, hemoglobin 11.3, platelets 73,000 and roughly stable. Neutrophil count 82% with only 4% bands. Creatinine 3.78. Basic metabolic profile is otherwise unremarkable. Magnesium falls within the normal limits. IMAGING: Chest x-ray demonstrates mediastinal and left side thoracostomy drains are stable in position. Endotracheal tube is in good position. There is an enteric catheter coursing below the level of the diaphragm. There are likely bilateral pleural effusions that are present. Left-sided IJ central venous catheter terminates in a perfect position. ASSESSMENT: 1. Acute hypoxic respiratory failure, improving. 2. ST elevation myocardial infarction. 3. Coronary artery disease, status post coronary bypass graft, postop day #2. 4. Healthcare-associated pneumonia. 5. Septic shock, resolving. 6. Critical care weakness. PLAN: We will continue supportive care including antibiotics and nebulized medication. We will switch over to pressure support ventilation if she is actually not on any medications that should suppress her respiratory drive. Hopefully, over the next 24-48 hours, she will start to wake up and we can consider her for a true spontaneous breathing trial and consider extubation. I will check on her multiple times throughout the day. CRITICAL CARE TIME: Ninety minutes. ESSIE
--- NOTE | 2017-05-31 13:23 | EKG ---
Test Reason : Blood Pressure : / mmHG Vent. Rate : 140 BPM Atrial Rate : 144 BPM P-R Int : 000 ms QRS Dur : 090 ms QT Int : 294 ms P-R-T Axes : 000 039 187 degrees QTc Int : 448 ms Atrial fibrillation with rapid ventricular response Marked ST abnormality, possible inferior subendocardial injury Marked ST abnormality, possible anterolateral subendocardial injury Abnormal ECG Confirmed by TANNER CHAPMAN ([id number]), magazine editor DANYEL CASSIDY ([id number]) on 05/31/2017 1:22:57 PM Referred By: Confirmed By:TANNER CHAPMAN
[2017-05-31] MEDS: Sodium Chloride 0.9% 1,000 ML IV SCH (18:39)
[2017-05-31] MEDS: Atorvastatin Calcium 40 MG TAB PO SCH (20:33)
[2017-05-31] MEDS: Famotidine/PF 20 mg/2ml Vial SLOW IVP SCH (20:34)
[2017-06-01] MEDS: Norepinephrine 8 MG in Sodium Chloride 0.9% 250 ML 250 ML IVPB PRN (01:41)
[2017-06-01] MEDS: Piperacillin/Tazobactam 2.25 GM in Sodium Chloride 0.9% 100 ML IVPB SCH ×3 (03:30→18:08)
[2017-06-01 04:49] LABS: Anion Gap 16 mmol/L (10-20); BUN (Urea Nitrogen) 37 mg/dL (9.8-20.1); Calc. Creatinine Clearance 15 mL/min (70-130); Calcium 8.1 mg/dL (7.8-10.44); Carbon Dioxide 22 mmol/L (23-31); Chloride 101 mmol/L (98-107); Estimated GFR-MDRD 9; Glucose 163 mg/dL (80-115); Potassium 4.4 mmol/L (3.5-5.1); Sodium 135 mmol/L (136-145)
[2017-06-01 05:19] LABS: #Eosinphils 0.2 thou/uL (0.0-0.7); #Lymphocytes 1.1 thou/uL (1.20-3.40); #Monocytes 0.9 thou/uL (0.11-0.59); #Neutrophils 12.3 thou/uL (1.40-6.50); %Basophils 0.1 % (0.0-1.0); %Eosinophils 1.1 % (0.0-10.0); %Lymphocytes 7.6 % (21.0-51.0); %Monocytes 6.3 % (0.0-10.0); Anisocytosis SLIGHT = 6-15 cells (100X) (0-5/hpf); Hemoglobin 10.7 g/dL (12.0-16.0); MDiff Complete? YES; Mean Corpuscular HGB CONC 33.1 g/dL (32.0-36.0); Mean Corpuscular Hemoglobin 31.9 pg (27.0-31.0); Mean Corpuscular Volume 96.3 fl (81.0-99.0); Mean Platelet Volume 8.7 fL (7.4-10.4); PLT Morphology Comment Appears Decreased; Platelet Count 61 thou/uL (130-400); RBC Distribution Width 15.6 % (11.5-14.5); Red Blood Cell (RBC) Count 3.35 mill/uL (4.20-5.40); White Blood Cell (WBC) Count 14.5 thou/uL (4.8-10.8)
--- NOTE | 2017-06-01 07:47 | PDOC.PN ---
- Subjective Encounter Start Date: 06/01/17 Encounter Start Time: 07:45 Ms. Randle was seen in follow-up today. She is intubated and more responsive this morning than yesterday. She will grimace and open her eyes to voice. - Objective Resuscitation Status: Resuscitation Status FULL:Full Resuscitation MAR Reviewed: Yes Vital Signs & Weight: Vital Signs (12 hours) Temp Pulse Resp BP Pulse Ox 06/01/17 07:25 90 112/42 L 06/01/17 06:00 20 06/01/17 04:00 98.8 F 18 06/01/17 02:34 101 H 06/01/17 02:00 22 H 06/01/17 00:00 99 F 24 H 05/31/17 22:28 84 05/31/17 22:00 16 05/31/17 20:00 98.8 F 88 24 H 100 Weight Admit Weight 158 lb Weight 199 lb 11.821 oz Most Recent Monitor Data Heart Rate from ECG 99 NIBP 120/49 NIBP BP-Mean 67 Respiration from ECG 23 SpO2 96 I&O: 05/31/17 06/01/17 06/02/17 06:59 06:59 06:59 Intake Total 1683.7 3709 Output Total 200 0 Balance 1483.7 3709 Result Diagrams: 06/01/17 04:00 06/01/17 04:00 Additional Labs: Accuchecks 06/01/17 05/31/17 05/31/17 00:49 19:49 16:48 POC Glucose 137 H 134 H 119 H 05/31/17 05/31/17 13:06 09:23 POC Glucose 115 H 90 Phys Exam - Physical Examination HEENT: PERRLA Respiratory: no wheezing + rhonchi Cardiovascular: RRR, no significant murmur Gastrointestinal: soft, positive bowel sounds Musculoskeletal: edema present + generalized edema Dx/Plan (1) Diabetes mellitus type 2 in nonobese Code(s): E11.9 - TYPE 2 DIABETES MELLITUS WITHOUT COMPLICATIONS Status: Acute (2) NSTEMI (non-ST elevated myocardial infarction) Code(s): I21.4 - NON-ST ELEVATION (NSTEMI) MYOCARDIAL INFARCTION Status: Acute (3) Respiratory arrest Code(s): R09.2 - RESPIRATORY ARREST Status: Acute (4) ESRD (end stage renal disease) Code(s): N18.6 - END STAGE RENAL DISEASE Status: Chronic (5) Healthcare-associated pneumonia Code(s): J18.9 - PNEUMONIA, UNSPECIFIED ORGANISM Status: Acute (6) Sepsis Code(s): A41.9 - SEPSIS, UNSPECIFIED ORGANISM Status: Resolved Qualifiers: Sepsis type: sepsis due to unspecified organism Qualified Code(s): A41.9 - Sepsis, unspecified organism - Plan * NSTEMI - s/p 3 vessel CABG- she is hemodynamically stable * PAF- heart rate has improved with Amiodarone * Healthcare Associated Pneumonia with sepsis- continue Zosyn and Vancomycin * DM- blood glucose is stable * ESRD- continue dialysis per Nephrology * Nutritional Support with tube feeding .
--- NOTE | 2017-06-01 08:20 | RAD ---
RADIOGRAPH CHEST 1 VIEW: Date: 06/01/17. Time: 5:29 a.m. HISTORY: A 71-year-old female status post open heart surgery. COMPARISON: 05/31/17, 5:09 a.m. FINDINGS: No change in life support lines. Bilateral pleural effusions. Interval worsening mixed interstitial and alveolar pulmonary edema. At the lower lung zones there are airspace densities dominate. Consol idation at left lower lobe remains. No pneumothorax visible. Defibrillation paddles still overlie t he left chest. IMPRESSION: 1. Worsening of congestive heart failure, with worsening of cardiomegaly and pulmonary edema. 2. Bibasilar airspace opacities, including consolidation of the left lower lobe, and bilateral pleur al effusions, remain. YVONNE [] POS: FRANKLIN
[2017-06-01] MEDS: Aspirin 325 MG TAB PO SCH (08:37)
[2017-06-01] MEDS: Amiodarone HCl 450 MG, Admixture Fee 1 EACH in Dextrose 5% in Water 250 ML IVPB SCH ×2 (08:38→21:43)
[2017-06-01] MEDS: Insulin Regular 300 UNITS/3 ML VIAL SC PRN ×3 (08:44→19:46)
[2017-06-01] MEDS ORDERED: predniSONE 20 MG TAB PO SCH (10:30)
--- NOTE | 2017-06-01 10:33 | PRG ---
DATE OF SERVICE: 06/01/2017 SERVICE: Pulmonary Medicine. INTERVAL HISTORY: The patient is still doing poorly from a neurologic standpoint. She is breathing fine on the ventilator. Her brain simply is not waking up ever since the surgery. She cannot provide additional elements of the history. Otherwise, there were no significant overnight events. PHYSICAL EXAMINATION: VITAL SIGNS: Afebrile, pulse 98, blood pressure 96/68, respirations 34, saturation 95% on 27% FiO2 and a PEEP of 5. GENERAL: Patient is intubated. She is under no influence of sedation, but remains encephalopathic. HEENT: Normocephalic, atraumatic. Sclerae are white, conjunctivae pink. Oral mucosa is moist without lesions. LUNGS: Decent air entry. Rhonchi and wheezing are both present. No crackles. HEART: Normal rate, regular. ABDOMEN: Soft, nontender, and nondistended. Bowel sounds are positive. MUSCULOSKELETAL: No cyanosis or clubbing. There is diffuse 1+ pitting throughout. GENITOURINARY: No Cuellar catheter in place. LABORATORY DATA: WBC 14.5, hemoglobin 10.7, platelets 61,000 and gently down trending. Neutrophil count is now 85%, which is improved. Creatinine 4.86. Basic metabolic profile is otherwise unremarkable. Blood cultures x3 are unremarkable. Previous one was positive for Corynebacterium, likely contaminant. IMAGING: Chest x-ray demonstrates endotracheal tube is in good position. There is a left-sided IJ central venous catheter that terminates in good location. There are bilateral pleural effusions present. Enteric catheter courses below the level of the diaphragm. ASSESSMENT: 1. Acute hypoxic respiratory failure. 2. ST elevation myocardial infarction. 3. Coronary artery disease, status post coronary artery bypass graft, postoperative day #3. 4. Healthcare-associated pneumonia. 5. Septic shock, resolving. 6. Critical care weakness. DISCUSSION AND PLAN: I will introduce some nebulized medications and steroids to help with her wheezing. We will try to keep her negative over the next 2-3 days. Ultimately, it is very ominous sign that the patient's brain is not waking up. We have discussed these findings with the patient's family and they do appreciate there is a possibility that her brain will not recover from anoxic injury. CRITICAL CARE TIME: 30 minutes. ESSIE
[2017-06-01] MEDS: Heparin 5,000 UNITS/ML VIAL SC SCH ×2 (12:07→21:44)
[2017-06-01] MEDS ORDERED: Fluconazole In NaCl,Iso-Osm 200 MG in Premix Bag 1 BAG IVPB SCH (13:00)
[2017-06-01] MEDS: Sodium Chloride 0.9% 1,000 ML IV SCH ×2 (13:18→13:28)
--- NOTE | 2017-06-01 14:00 | PRG ---
DATE OF SERVICE: 06/01/2017 SUBJECTIVE: A 71-year-old lady being seen for end-stage renal disease. PHYSICAL EXAMINATION: GENERAL: Patient is resting. VITAL SIGNS: Pulse 94, breathing at 16, blood pressure 96/68. HEAD/NECK: Normocephalic. Atraumatic. EYES: EOMI. No deformity. EARS: Clear. No ulcers. NOSE: Intact. No lesions. MOUTH: Clear. No discharge. THROAT: Clear. No exudate. LUNGS: Clear. No crackles. CARDIAC: S1, S2. No rub. ABDOMEN: Benign. BS+.. BACK/EXTREMITIES: Edema 0+ Ulcer- NEUROLOGICAL: The patient is resting. SKIN: Rash- Bruise- LYMPHATICS: Edema- Ulcer- LABORATORY DATA: Show hemoglobin 10.7, potassium 4.4. ASSESSMENT AND RECOMMENDATIONS: 1. Stage 6 chronic kidney disease. No indication for dialysis. 2. Hyperkalemia, stable. 3. Anemia, stable. 4. Medications based on glomerular filtration rate are appropriate. MTDD
[2017-06-01] MEDS: Atorvastatin Calcium 40 MG TAB PO SCH (20:30)
[2017-06-01] MEDS: Famotidine/PF 20 mg/2ml Vial SLOW IVP SCH (20:30)
[2017-06-02] MEDS: Norepinephrine 8 MG in Sodium Chloride 0.9% 250 ML 250 ML IVPB PRN (00:13)
[2017-06-02] MEDS: Insulin Regular 300 UNITS/3 ML VIAL SC PRN ×3 (00:15→20:14)
[2017-06-02] MEDS: Piperacillin/Tazobactam 2.25 GM in Sodium Chloride 0.9% 100 ML IVPB SCH ×3 (04:16→20:14)
[2017-06-02 05:20] LABS: Band 2 % (5-11); Hemoglobin 10.4 g/dL (12.0-16.0); Lymphocytes 3 % (21-51); MDiff Complete? YES; Mean Corpuscular HGB CONC 32.3 g/dL (32.0-36.0); Mean Corpuscular Hemoglobin 31.6 pg (27.0-31.0); Mean Corpuscular Volume 97.8 fl (81.0-99.0); Mean Platelet Volume 9.4 fL (7.4-10.4); Monocytes 5 % (0-10); Neutrophil 90 % (42-75); Nucleated RBC 1 % (0); PLT Morphology Comment Appears Decreased; Platelet Count 65 thou/uL (130-400); RBC Distribution Width 15.8 % (11.5-14.5); Red Blood Cell (RBC) Count 3.29 mill/uL (4.20-5.40); White Blood Cell (WBC) Count 13.3 thou/uL (4.8-10.8)
[2017-06-02 05:23] LABS: Anion Gap 19 mmol/L (10-20); BUN (Urea Nitrogen) 48 mg/dL (9.8-20.1); Calc. Creatinine Clearance 13 mL/min (70-130); Calcium 8.1 mg/dL (7.8-10.44); Carbon Dioxide 21 mmol/L (23-31); Chloride 98 mmol/L (98-107); Estimated GFR-MDRD 7; Glucose 186 mg/dL (80-115); Sodium 133 mmol/L (136-145)
[2017-06-02] MEDS: Amiodarone HCl 450 MG, Admixture Fee 1 EACH in Dextrose 5% in Water 250 ML IVPB SCH (06:18)
[2017-06-02] MEDS: Heparin 5,000 UNITS/ML VIAL SC SCH (06:18)
[2017-06-02 07:22] LABS: Actual Bicarbonate (HCO3a) 20.9 mEq/L (22-26); Base Excess (BEa) -3.9 mEq/L (0 (+/-) 2.5); CO2 Tension 37.2 mmHg (35.0-45.0); Hematocrit-ABG 33.9 % (36.0-47.0); Hemoglobin (Hb) 9.7 g/dL (12.0-16.0); O2 Tension (PaO2) 109.9 mmHg (80.0-100.0); pH, Arterial 7.37 (7.35-7.45)
[2017-06-02 07:23] LABS: Puncture Site ALINE
--- NOTE | 2017-06-02 08:52 | PDOC.PN ---
- Subjective Encounter Start Date: 06/02/17 Encounter Start Time: 08:51 Ms. Randle is about the same today. She is intubated. She will grimace and bit on the ET tube. She will open her eyes, but does not track. She is not following commends. - Objective Resuscitation Status: Resuscitation Status FULL:Full Resuscitation MAR Reviewed: Yes Vital Signs & Weight: Vital Signs (12 hours) Temp Pulse Resp BP Pulse Ox 06/02/17 08:00 97.8 F 18 06/02/17 07:58 97.8 F 95 18 100 06/02/17 06:53 95 127/55 L 06/02/17 06:00 15 06/02/17 04:00 98.5 F 21 H 06/02/17 03:04 91 06/02/17 02:00 16 06/02/17 01:09 97 26 H 100 06/02/17 00:00 98 F 21 H 06/01/17 22:05 92 06/01/17 22:00 24 H Weight Admit Weight 158 lb Weight 201 lb 8.04 oz Most Recent Monitor Data Heart Rate from ECG 96 NIBP 126/46 NIBP BP-Mean 76 Respiration from ECG 21 SpO2 100 I&O: 06/01/17 06/02/17 06/03/17 06:59 06:59 06:59 Intake Total 3709 2497 Output Total 0 0 Balance 3709 2497 Result Diagrams: 06/02/17 04:25 06/02/17 04:25 Additional Labs: Accuchecks 06/02/17 06/02/17 06/01/17 04:33 00:16 19:47 POC Glucose 177 H 153 H 169 H 06/01/17 06/01/17 15:49 08:44 POC Glucose 137 H 131 H Phys Exam - Physical Examination HEENT: PERRLA Respiratory: wheezing present + coarse breath sounds Cardiovascular: RRR, no significant murmur, no rub Gastrointestinal: soft, positive bowel sounds Musculoskeletal: edema present + generalized edema- upper extremities> lower Dx/Plan (1) Diabetes mellitus type 2 in nonobese Code(s): E11.9 - TYPE 2 DIABETES MELLITUS WITHOUT COMPLICATIONS Status: Acute (2) NSTEMI (non-ST elevated myocardial infarction) Code(s): I21.4 - NON-ST ELEVATION (NSTEMI) MYOCARDIAL INFARCTION Status: Acute (3) Respiratory arrest Code(s): R09.2 - RESPIRATORY ARREST Status: Acute (4) ESRD (end stage renal disease) Code(s): N18.6 - END STAGE RENAL DISEASE Status: Chronic (5) Healthcare-associated pneumonia Code(s): J18.9 - PNEUMONIA, UNSPECIFIED ORGANISM Status: Acute (6) Sepsis Code(s): A41.9 - SEPSIS, UNSPECIFIED ORGANISM Status: Resolved Qualifiers: Sepsis type: sepsis due to unspecified organism Qualified Code(s): A41.9 - Sepsis, unspecified organism - Plan * CAD - s/p 3 vessel CABG- she is hemodynamically stable * PAF- her heart rate has been stable on Amiodarone * Health care associated Pneumonia with sepsis- continue Zosyn and Vancomycin. * ESRD- continue dialysis as tolerated * DM- blood glucose is stable
[2017-06-02 08:53] LABS: Vancomycin, Random 17.2 ug/mL (See Comment)
--- NOTE | 2017-06-02 09:47 | PRG ---
DATE OF SERVICE: 06/02/2017 NEPHROLOGY PROGRESS NOTE SUBJECTIVE: Patient was seen and examined at bedside and overnight events noted. Patient denies any shortness of breath or chest pain or palpitation. No history of nausea or vomiting or diarrhea or f ever or chills or cramps. OBJECTIVE: GENERAL: This is a well-built female seen in ICU, intubated. VITAL SIGNS: Temperature 97.8, pulse 96, respiratory rate 18, blood pressure 126/46. HEENT: Intubated. NECK: Supple. CARDIOVASCULAR: S1, S2 heard. Rate and rhythm regular. RESPIRATORY: Clear to auscultation. GASTROINTESTINAL: Abdomen is soft. MUSCULOSKELETAL: 2+ edema. DERMATOLOGIC: No skin rash. NEUROLOGIC: Intubated. PSYCHIATRIC: Mood and affect normal. LABORATORY DATA: Potassium 5.0, BUN 48, creatinine 5.9. ASSESSMENT AND PLAN: 1. End-stage renal disease. Continue hemodialysis as tolerated. 2. Hyperkalemia, mild. 3. Anemia, stable. 4. Edema. 5. Cardiorenal syndrome, status post coronary artery bypass graft. 6. Plan is to have dialysis today with fluid removal as tolerated. Currently on pressors and high r isk for dialysis and complications during dialysis.
[2017-06-02] MEDS ORDERED: Fluconazole In NaCl,Iso-Osm 100 MG in Admixture Fee 1 EACH IVPB SCH (11:15)
--- NOTE | 2017-06-02 11:38 | PRG ---
DATE OF SERVICE: 06/02/2017 SERVICE: Pulmonary Medicine INTERVAL HISTORY: The patient is doing fine from a respiratory standpoint. Mentation simpson, she is s lowly coming around. That being said, she is not making a robust recovery the way we would hope. He modynamically, she has remained stable. She is in atrial fibrillation, but has demonstrated good blo od pressure. PHYSICAL EXAMINATION: VITAL SIGNS: Afebrile, pulse 96, blood pressure 108/50, respirations 18, saturation 100% on 27% FiO2 and a PEEP of 5. GENERAL: The patient is intubated. She is on a little bit of Precedex and remains a little encephal opathic. HEENT: Normocephalic, atraumatic. Sclerae are white, conjunctivae pink. Oral mucosa is moist witho ut lesions. LUNGS: Decent air entry. There is no prolonged expiratory phase. Crackles are present throughout b ilateral lung silva. No wheezing or rhonchi. HEART: Normal rate. Irregular. ABDOMEN: Soft. Distended, but nontender. Bowel sounds are hypoactive. GENITOURINARY: Cuellar catheter in place. NEUROLOGIC: She has a grimace with noxious stimuli to the left upper extremity. She will spontaneou sly move left upper extremity, but she does not move her arms or legs to noxious stimuli. Her pupils are equal, round, and reactive. She is overbreathing the ventilator very comfortably. In fact, she is on only pressure support ventilation. With deep suctioning, she has a cough and grimace. Overal l, she has made a small improvement compared to yesterday. LABORATORY DATA: WBC 13.3, hemoglobin 10.4, platelets 65,000 and roughly stable. Neutrophil count i s 90% with a low band count of only 2%. pH 7.37, pCO2 37, pO2 109. Creatinine 5.86, BUN 48. Bicarb randall 21. Sodium 133. Blood cultures are negative x2. ASSESSMENT: 1. Acute hypoxic respiratory failure. 2. Metabolic encephalopathy. 3. Anoxic brain injury, possible. 4. ST elevation myocardial infarction. 5. Coronary artery disease, status post coronary artery bypass graft, postop day #4. 6. Healthcare-associated pneumonia. 7. Septic shock, resolved. 8. Critical care weakness. PLAN: I will continue to support the patient for the next 24 hours. It is my suspicion, however, th at the patient developed an anoxic brain injury in the perioperative period. If she does not wake up in the next 24 hours we will have talk to the family about possibly transitioning over comfort care only. Otherwise, supportive measures including dialysis, nebulized medications and antibiotics will be continued. Critical care time: 30 minutes.
[2017-06-02] MEDS: predniSONE 20 MG TAB PO SCH (12:33)
[2017-06-02] MEDS: Sodium Chloride 0.9% 1,000 ML IV SCH (15:46)
[2017-06-02] MEDS: Famotidine 20 MG TAB PO SCH (20:14)
[2017-06-02] MEDS: Atorvastatin Calcium 40 MG TAB PO SCH (20:14)
[2017-06-03] MEDS: Piperacillin/Tazobactam 2.25 GM in Sodium Chloride 0.9% 100 ML IVPB SCH ×3 (04:33→18:48)
[2017-06-03] MEDS: Insulin Regular 300 UNITS/3 ML VIAL SC PRN ×3 (04:36→12:50)
[2017-06-03 04:55] LABS: INR-International Normal Ratio 1.5; PTT 35.5 SEC (22.9-36.1); Prothrombin Time 18.5 SEC (12.0-14.7)
[2017-06-03 05:16] LABS: Anion Gap 17 mmol/L (10-20); BUN (Urea Nitrogen) 33 mg/dL (9.8-20.1); Calc. Creatinine Clearance 19 mL/min (70-130); Calcium 8.5 mg/dL (7.8-10.44); Carbon Dioxide 26 mmol/L (23-31); Chloride 98 mmol/L (98-107); Estimated GFR-MDRD 11; Glucose 169 mg/dL (80-115); Potassium 4.6 mmol/L (3.5-5.1); Sodium 136 mmol/L (136-145)
[2017-06-03 05:23] LABS: #Lymphocytes 0.6 thou/uL (1.20-3.40); #Neutrophils 10.9 thou/uL (1.40-6.50); %Lymphocytes 4.5 % (21.0-51.0); %Monocytes 7.9 % (0.0-10.0); %Neutrophils 87.6 % (42.0-75.0); Mean Corpuscular HGB CONC 32.6 g/dL (32.0-36.0); Mean Corpuscular Hemoglobin 31.2 pg (27.0-31.0); Mean Corpuscular Volume 95.9 fl (81.0-99.0); Mean Platelet Volume 9.3 fL (7.4-10.4); Platelet Count 75 thou/uL (130-400); RBC Distribution Width 16.2 % (11.5-14.5); Red Blood Cell (RBC) Count 3.21 mill/uL (4.20-5.40); White Blood Cell (WBC) Count 12.4 thou/uL (4.8-10.8)
[2017-06-03] MEDS: predniSONE 20 MG TAB PO SCH (07:39)
[2017-06-03] MEDS: Fluconazole In NaCl,Iso-Osm 100 MG in Admixture Fee 1 EACH IVPB SCH (08:15)
[2017-06-03] MEDS: Norepinephrine 8 MG in Sodium Chloride 0.9% 250 ML 250 ML IVPB PRN (09:24)
[2017-06-03] MEDS: Sodium Chloride 0.9% 1,000 ML IV SCH (11:41)
--- NOTE | 2017-06-03 13:46 | PDOC.PN ---
- Subjective Encounter Start Date: 06/03/17 Encounter Start Time: 13:50 Subjective: Intubated, sedated, -: No acute events overnight. - Objective Resuscitation Status: Resuscitation Status FULL:Full Resuscitation Vital Signs & Weight: Vital Signs (12 hours) Temp Pulse Resp BP Pulse Ox 06/03/17 12:42 82 161/43 H 06/03/17 12:00 98.8 F 24 H 06/03/17 10:53 69 137/33 L 06/03/17 10:00 24 H 06/03/17 08:00 98.7 F 66 24 H 92 L 06/03/17 07:58 24 H 06/03/17 07:53 98.7 F 06/03/17 07:07 61 130/29 L 06/03/17 07:00 98.7 F 06/03/17 06:00 26 H 06/03/17 04:00 100 F H 26 H 06/03/17 02:00 25 H 06/03/17 01:47 59 L 16 98 06/03/17 01:45 60 143/38 H Weight Admit Weight 158 lb Weight 204 lb 12.951 oz Most Recent Monitor Data Heart Rate from ECG 87 NIBP 100/70 NIBP BP-Mean 78 Respiration from ECG 21 SpO2 94 I&O: 06/02/17 06/03/17 06/04/17 06:59 06:59 06:59 Intake Total 2497 2051.9 27 Output Total 0 Balance 2497 2051.9 27 Result Diagrams: 06/03/17 04:30 06/03/17 04:30 Additional Labs: Accuchecks 06/03/17 06/03/17 06/03/17 12:42 08:05 04:34 POC Glucose 146 H 174 H 164 H 06/03/17 06/02/17 06/02/17 01:12 20:14 17:06 POC Glucose 155 H 156 H 121 H Phys Exam - Physical Examination Constitutional: NAD HEENT: moist MMs, sclera anicteric, TM's clear Neck: no JVD, full ROM Respiratory: no wheezing, no rales, no rhonchi, clear to auscultation bilateral Cardiovascular: RRR, no significant murmur, no rub Gastrointestinal: soft, non-tender, no distention, positive bowel sounds Musculoskeletal: no edema, pulses present Intubated. Unable to cooperate w exam. Skin: no rash, normal turgor Dx/Plan (1) Acute respiratory failure with hypoxemia Code(s): J96.01 - ACUTE RESPIRATORY FAILURE WITH HYPOXIA Status: Acute Comment: With possible Anoxic brain injury. (2) Diabetes mellitus type 2 in nonobese Code(s): E11.9 - TYPE 2 DIABETES MELLITUS WITHOUT COMPLICATIONS Status: Acute Comment: Controlled and at goal. (3) Healthcare-associated pneumonia Code(s): J18.9 - PNEUMONIA, UNSPECIFIED ORGANISM Status: Acute Comment: On Zosyn. Vancomycin discontinued 06/03 (4) NSTEMI (non-ST elevated myocardial infarction) Code(s): I21.4 - NON-ST ELEVATION (NSTEMI) MYOCARDIAL INFARCTION Status: Resolved (5) Respiratory arrest Code(s): R09.2 - RESPIRATORY ARREST Status: Acute Plan: See problem #1 (6) CAD (coronary artery disease) Code(s): I25.10 - ATHSCL HEART DISEASE OF [place] CORONARY ARTERY W/O ANG PCTRS Status: Chronic Qualifiers: Coronary Disease-Associated Artery/Lesion type: [place] artery [place] vs. transplanted heart: [place] heart Associated angina: without angina Qualified Code(s): I25.10 - Atherosclerotic heart disease of [place] coronary artery without angina pectoris Comment: Continue ASA, Statin (7) ESRD (end stage renal disease) on dialysis Code(s): N18.6 - END STAGE RENAL DISEASE; Z99.2 - DEPENDENCE ON RENAL DIALYSIS Status: Chronic Comment: HD per renal (8) Peripheral vascular disease in diabetes mellitus Code(s): E11.51 - TYPE 2 DIABETES W DIABETIC PERIPHERAL ANGIOPATH W/O [place] Status: Chronic (9) Septic shock Code(s): A41.9 - SEPSIS, UNSPECIFIED ORGANISM; R65.21 - SEVERE SEPSIS WITH SEPTIC SHOCK Status: Resolved Comment: Improved. Vanc discontinued. Continue Zosyn for today. - Plan cont current plan of care, continue antibiotics, social work administrator * .
--- NOTE | 2017-06-03 16:42 | PRG ---
DATE OF SERVICE: 06/03/2017 SERVICE: Pulmonary Medicine. INTERVAL HISTORY: The patient is doing really well from a respiratory standpoint. Cardiovascularly, she is doing quite as well. Her blood pressures are excellent. She certainly has good perfusion pr essure for her brain. PHYSICAL EXAMINATION: VITAL SIGNS: Afebrile with a T-max of 100.3, pulse 87, blood pressure 100/70, respirations 21, satur ation 94% on 27% FIO2 and a PEEP of 5. GENERAL: The patient is intubated with a little bit of sedation to keep her from having coughing spe lls. HEENT: Normocephalic, atraumatic. Sclerae are white, conjunctivae pink. Oral mucosa is moist witho ut lesions. LUNGS: Decent air entry. There is no prolonged expiratory phase. Rhonchi are present, but clear wi th cough. No crackles or wheezing are appreciated. HEART: Normal rate, regular. ABDOMEN: Soft, nontender, nondistended. Bowel sounds are positive. MUSCULOSKELETAL: No cyanosis or clubbing. There is diffuse 2-3+ pitting throughout. GENITOURINARY: No Cuellar. NEUROLOGIC: Pupils are equal, round, reactive. She is overbreathing comfortably on the ventilator. She demonstrates a gag and cough. She does not withdraw from noxious stimuli in the bilateral upper or lower extremities. She does not follow any commands or have any purposeful movements. LABORATORY DATA: WBC 12.4, hemoglobin 10.0, platelets 75,000. INR 1.5. Creatinine 4.01. Basic met abolic profile is otherwise unremarkable. Blood cultures x2 are unremarkable to date. ASSESSMENT: 1. Acute hypoxic respiratory failure. 2. Metabolic encephalopathy. 3. Anoxic brain injury, suspected. 4. ST elevation myocardial infarction. 5. Coronary artery disease, status post coronary artery bypass graft, postoperative day #5. 6. Healthcare-associated pneumonia. 7. Septic shock, resolved. 8. Critical care weakness. PLAN: I will discontinue all medications that are directed at possible sedation. Precedex really sh ould not create this degree of sedation. That being said, nothing on board over the next 24 hours th at could potentially cloud the picture. I will meet with the family tomorrow morning at 0900. At th at time, we are going to discuss options moving forward, including transitioning over to comfort care only or putting a PEG tube and tracheostomy and transitioning to a long-term care. We are currently 5 days out from a possible anoxic injury. She has had multiple dialysis sessions si nce that event. It is very likely that she suffered damage that will prevent her from ever returning to her previous state of function. CRITICAL CARE TIME: 30 minutes.
--- NOTE | 2017-06-03 16:47 | PRG ---
DATE OF SERVICE: 06/03/2017 SUBJECTIVE: The patient was seen and examined at bedside in ICU and remains intubated and nonverbal . PHYSICAL EXAMINATION: GENERAL: This is an obese female, intubated. VITAL SIGNS: Temperature 98.8, pulse 77, respiratory 18, blood pressure 162/40. HEENT: Intubated. CARDIOVASCULAR: S1, S2 heard. RESPIRATORY: Clear. GASTROINTESTINAL: Abdomen is soft. MUSCULOSKELETAL: 1+ edema. DERMATOLOGIC: Chronic skin lesions. NEUROLOGIC: Intubated. LABORATORY DATA: Potassium is 4.6, BUN is 33, creatinine is 4.01. ASSESSMENT AND PLAN: 1. End-stage renal disease. Continue on hemodialysis Friday, Friday, and Friday. 2. Acute hypoxic respiratory failure, intubated. 3. Cardiorenal syndrome, status post coronary artery bypass graft. 4. Edema, controlled. 5. Anemia. 6. Obesity. 7. Hypertension. 8. Continue dialysis as tolerated.
[2017-06-03] MEDS: Atorvastatin Calcium 40 MG TAB PO SCH (20:39)
[2017-06-03] MEDS: Famotidine 20 MG TAB PO SCH (20:39)
[2017-06-04] MEDS: Insulin Regular 300 UNITS/3 ML VIAL SC PRN ×3 (00:40→20:46)
[2017-06-04] MEDS: Piperacillin/Tazobactam 2.25 GM in Sodium Chloride 0.9% 100 ML IVPB SCH ×3 (02:53→19:59)
[2017-06-04 04:54] LABS: Anion Gap 19 mmol/L (10-20); BUN (Urea Nitrogen) 64 mg/dL (9.8-20.1); Calc. Creatinine Clearance 14 mL/min (70-130); Calcium 8.1 mg/dL (7.8-10.44); Carbon Dioxide 22 mmol/L (23-31); Chloride 100 mmol/L (98-107); Estimated GFR-MDRD 8; Glucose 149 mg/dL (80-115); Potassium 4.4 mmol/L (3.5-5.1); Sodium 137 mmol/L (136-145)
[2017-06-04 05:08] LABS: Band 4 % (5-11); Lymphocytes 8 % (21-51); MDiff Complete? YES; Mean Corpuscular HGB CONC 33.1 g/dL (32.0-36.0); Mean Corpuscular Volume 96.5 fl (81.0-99.0); Mean Platelet Volume 9.2 fL (7.4-10.4); Monocytes 7 % (0-10); Neutrophil 81 % (42-75); Nucleated RBC 1 % (0); PLT Morphology Comment Appears Decreased; Platelet Count 80 thou/uL (130-400); Polychromasia SLIGHT = 2-3 cells (100X) (0-2/hpf); RBC Distribution Width 16.2 % (11.5-14.5); White Blood Cell (WBC) Count 19.5 thou/uL (4.8-10.8)
--- NOTE | 2017-06-04 09:17 | PRG ---
DATE OF SERVICE: 06/04/2017 SUBJECTIVE: The patient was seen and examined in ICU, remains intubated and nonverbal and with confu al. Blood pressure is low. She was getting started on dialysis. PHYSICAL EXAMINATION: GENERAL: This is an obese female, intubated seen in ICU. VITAL SIGNS: Temperature 98.2, pulse 104, respiratory rate 16, blood pressure 94/71. HEENT: Intubated. CARDIOVASCULAR: S1, S2 heard. RESPIRATORY: Clear. ABDOMEN: Soft. MUSCULOSKELETAL: 1+ edema. DERMATOLOGIC: No skin lesions. NEUROLOGIC: Intubated. LABORATORY DATA: Hemoglobin is 7.0, potassium is 4.4, BUN is 64, creatinine is 5.3. ASSESSMENT AND PLAN: 1. End-stage renal disease. Continue hemodialysis Friday, Friday, and Friday. The patient is hy potensive and high risk for complications. Will have dialysis as tolerated. 2. Anemia. We will transfuse 1 unit of PRBC with dialysis today. Monitor hemoglobin. Continue on NICOLE. 3. Hypertension, stable. 4. Edema. We will remove fluid. 5. Fluid overload. 6. Acute hypoxic respiratory failure. 7. Cardiorenal syndrome, status post coronary artery bypass graft. Plan is to transfuse with dialysis today and will have dialysis as tolerated. The patient remains hi gh risk for complications during dialysis given hypotension and cardiac status. We will follow.
[2017-06-04] MEDS: Epoetin (ESRD) 10,000 UNITS/ML VIAL IVP SCH (09:41)
[2017-06-04] MEDS: predniSONE 20 MG TAB PO SCH (10:46)
[2017-06-04] MEDS: Sodium Chloride 0.9% 1,000 ML IV SCH (10:47)
[2017-06-04] MEDS: Fluconazole In NaCl,Iso-Osm 100 MG in Admixture Fee 1 EACH IVPB SCH (10:47)
--- NOTE | 2017-06-04 12:48 | PDOC.PN ---
- Subjective Encounter Start Date: 06/04/17 Encounter Start Time: 12:48 Subjective: Clinical status unchanged in the last 24 hours. -: Still hypotensive and requiring pressors. -: Sedation discontinued but not responding to commands - Objective Resuscitation Status: Resuscitation Status FULL:Full Resuscitation MAR Reviewed: Yes Vital Signs & Weight: Vital Signs (12 hours) Temp Pulse Resp BP 06/04/17 11:02 130 H 06/04/17 10:00 98.3 F 17 06/04/17 08:27 106 H 06/04/17 08:00 17 06/04/17 07:00 98.2 F 06/04/17 06:00 13 06/04/17 04:00 98.8 F 15 06/04/17 02:47 82 122/38 L 06/04/17 02:00 14 Weight Admit Weight 158 lb Weight 201 lb 0.985 oz Most Recent Monitor Data Heart Rate from ECG 127 NIBP 120/55 NIBP BP-Mean 72 Respiration from ECG 18 SpO2 98 I&O: 06/03/17 06/04/17 06/05/17 06:59 06:59 06:59 Intake Total 2051.9 1418 450 Balance 2051.9 1418 450 Result Diagrams: 06/04/17 04:30 06/04/17 04:30 Additional Labs: Accuchecks 06/04/17 06/04/17 06/04/17 12:17 09:25 04:01 POC Glucose 118 H 130 H 152 H 06/04/17 06/03/17 06/03/17 00:40 20:39 12:42 POC Glucose 137 H 122 H 146 H Phys Exam - Physical Examination Constitutional: NAD HEENT: PERRLA (minimally responsive), moist MMs, sclera anicteric Neck: supple Respiratory: no wheezing, no rales coarse breath sounds bilaterally. Cardiovascular: no significant murmur, no rub tachycardic Gastrointestinal: soft, non-tender, no distention, positive bowel sounds Musculoskeletal: pulses present (1+), edema present Intubated. Not responding to commands. Spontaneous eye opening. Skin: no rash, normal turgor Dx/Plan (1) Acute respiratory failure with hypoxemia Code(s): J96.01 - ACUTE RESPIRATORY FAILURE WITH HYPOXIA Status: Acute Comment: With possible Anoxic brain injury. (2) Diabetes mellitus type 2 in nonobese Code(s): E11.9 - TYPE 2 DIABETES MELLITUS WITHOUT COMPLICATIONS Status: Acute Comment: Controlled and at goal. (3) Healthcare-associated pneumonia Code(s): J18.9 - PNEUMONIA, UNSPECIFIED ORGANISM Status: Acute Comment: On Zosyn. Vancomycin discontinued 06/03 (4) NSTEMI (non-ST elevated myocardial infarction) Code(s): I21.4 - NON-ST ELEVATION (NSTEMI) MYOCARDIAL INFARCTION Status: Resolved (5) Respiratory arrest Code(s): R09.2 - RESPIRATORY ARREST Status: Acute (6) CAD (coronary artery disease) Code(s): I25.10 - ATHSCL HEART DISEASE OF [place] CORONARY ARTERY W/O ANG PCTRS Status: Chronic Qualifiers: Coronary Disease-Associated Artery/Lesion type: [place] artery [place] vs. transplanted heart: [place] heart Associated angina: without angina Qualified Code(s): I25.10 - Atherosclerotic heart disease of [place] coronary artery without angina pectoris Comment: Continue ASA, Statin (7) ESRD (end stage renal disease) on dialysis Code(s): N18.6 - END STAGE RENAL DISEASE; Z99.2 - DEPENDENCE ON RENAL DIALYSIS Status: Chronic Comment: HD per renal (8) Peripheral vascular disease in diabetes mellitus Code(s): E11.51 - TYPE 2 DIABETES W DIABETIC PERIPHERAL ANGIOPATH W/O GANGRENE Status: Chronic (9) Septic shock Code(s): A41.9 - SEPSIS, UNSPECIFIED ORGANISM; R65.21 - SEVERE SEPSIS WITH SEPTIC SHOCK Status: Resolved Comment: Improved. Vanc discontinued. Continue Zosyn for today. (10) Tachycardia Code(s): R00.0 - TACHYCARDIA, UNSPECIFIED Status: Acute Comment: Cardiology reviewed. Will start on amiodarone. (11) Anemia of renal disease Code(s): D63.1 - ANEMIA IN CHRONIC KIDNEY DISEASE Status: Chronic Comment: Transfuse as necessary. Recieved 3 units already this admission. - Plan cont current plan of care * .
[2017-06-04] MEDS: Amiodarone HCl 450 MG, Admixture Fee 1 EACH in Dextrose 5% in Water 250 ML IVPB SCH ×2 (14:53→22:02)
--- NOTE | 2017-06-04 19:52 | CON ---
DATE OF CONSULTATION: 06/04/2017 HISTORY OF PRESENT ILLNESS: Ms. Randle is a 71-year-old female in ICU with respiratory failure and h as been consulted to place a tracheostomy and a PEG tube. Also, in 2011, placed a right arm basilic vein transposition fistula with using the segment of the cephalic vein that has served her well for d ialysis. Prior to that, she has had a right arm fistula in 06/2011. In 08/28/2011, had presented wi th a cecal polyp, too large and not amenable to endoscopic resection and gallstones, undergoing lapar oscopic adhesiolysis, laparoscopic cholecystectomy, laparoscopic converted to open right colectomy du e to adhesions from prior surgery. Patient now in this hospitalization has undergone on 05/26/2017, cardioversion by Dr. Mckenzie, on 05/30/2017, cardioversion by Dr. Mckenzie and on 05/29/2017, toth ry artery bypass grafting three vessels, internal mammary and saphenous vein graft by Dr. Blevins, Dr. Nelson is the operations assistant. The patient has been weaned from the ventilator. Prognosis is poor. Family wants to proceed and understands she will go to LTAC. She suffers from metabolic encephalopathy, ac radhika hypoxic respiratory failure, anoxic brain injury, suspect ST elevation myocardial infarction in t his hospitalization, coronary artery disease, status post heart bypass this hospitalization, hospital -associated pneumonia, septic shock, critical care weakness. ALLERGIES: None. TOBACCO: None. ALCOHOL: None. MEDICATIONS: Aspirin at home, Protonix, Isordil, metoprolol, nifedipine, Xanax. PAST MEDICAL HISTORY: End-stage renal disease on hemodialysis Friday, Friday, and Friday, diabete s mellitus type 2, hypertension, dyslipidemia, coronary artery disease, respiratory failure, morbid o besity. PAST SURGICAL HISTORY: As noted above. PHYSICAL EXAMINATION: VITAL SIGNS: 121, 118/54. LUNGS: Clear to auscultation. Few rhonchi at the base. CARDIAC: Sinus tachycardia. ABDOMEN: Soft, obese, well healed incisions, well healed sternotomy scar. EXTREMITIES: Unremarkable. Right arm basilic vein fistula. ASSESSMENT AND PLAN: Respiratory failure. We will plan tracheostomy and PEG tube tomorrow. She wou ld probably need a LTAC at some point.
[2017-06-04] MEDS: Atorvastatin Calcium 40 MG TAB PO SCH (20:04)
[2017-06-04] MEDS: HYDROcodone/Acetaminophen 5/325 mg Tablet PO PRN (20:04)
[2017-06-04] MEDS: Famotidine 20 MG TAB PO SCH (20:04)
--- NOTE | 2017-06-04 20:21 | PRG ---
DATE OF SERVICE: 06/04/2017 SERVICE: Pulmonary Medicine. INTERVAL HISTORY: The patient is doing fine from a respiratory standpoint. She went back into a tac hyarrhythmia. Outside of this, there has been no interval change to her cardiovascular condition. S he currently had a little improvement in her mentation is detailed below. She cannot provide any add itional elements of the history, however. PHYSICAL EXAMINATION: VITAL SIGNS: Afebrile with a T-max of 100.3, pulse 106, blood pressure 121/41, respirations 18, satu ration 99% on 27% FIO2 and a PEEP of 5. GENERAL: Patient is intubated. She has been off of sedation for over 24 hours. HEENT: Normocephalic, atraumatic. Sclerae are white, conjunctivae pink. Oral and nasal mucosa is m oist without lesions. LUNGS: Decent air entry with rhonchi and crackles present. No prolonged expiratory phase. HEART: Tachycardic. Irregular. ABDOMEN: Soft, nontender, nondistended. Bowel sounds are positive. MUSCULOSKELETAL: No cyanosis or clubbing. There is 2+ pitting throughout. GENITOURINARY: Cuellar catheter in place. NEUROLOGIC: The patient is spontaneously opening and closing her eyes. She is also doing the same o n command. She will stick her tongue out with command. Outside of that, she is simply too weak to m ove her upper or lower extremities at this time. She grimaces with noxious stimuli to the right and left upper extremity. She does not grimace with noxious stimuli to the bilateral lower extremities. LABORATORY DATA: WBC 19.5, hemoglobin 7.0, platelets 80,000. Creatinine 5.38, BUN 64. Basic metabo lic profile is otherwise unremarkable. C. diff antigen and toxin is unremarkable. Blood cultures x2 are negative. ASSESSMENT: 1. Acute hypoxic respiratory failure. 2. Metabolic encephalopathy. 3. ST elevation myocardial infarction. 4. Coronary artery disease, status post coronary artery bypass graft, postoperative day #6. 5. Healthcare-associated pneumonia. 6. Septic shock, resolved. 7. Critical care weakness. DISCUSSION AND PLAN: I had a family meeting this morning. We discussed the two possibilities moving forward including PEG and tracheostomy versus transitioning over to comfort care only. If suggested on multiple occasions that she probably would not want to live if it required her to be on a ventila tor for a long period of time. My suspicion is that getting over this illness would take several mon ths of intensive physical therapy, tracheostomy, and PEG tube placement. This is only provided that she can work well with physical therapy in order to regain her lost strength and that she has full re covery of neurologic function. She will get back to me by this evening to pave a path forward. As jodie valderrama noted, she is following some simple commands with her eyes, and tongue. CRITICAL CARE TIME: 30 minutes.
[2017-06-05] MEDS: Piperacillin/Tazobactam 2.25 GM in Sodium Chloride 0.9% 100 ML IVPB SCH ×2 (03:19→11:08)
[2017-06-05] MEDS: Insulin Regular 300 UNITS/3 ML VIAL SC PRN ×4 (04:50→20:21)
[2017-06-05 05:14] LABS: Anion Gap 17 mmol/L (10-20); BUN (Urea Nitrogen) 38 mg/dL (9.8-20.1); Calc. Creatinine Clearance 22 mL/min (70-130); Calcium 8.1 mg/dL (7.8-10.44); Carbon Dioxide 26 mmol/L (23-31); Chloride 99 mmol/L (98-107); Estimated GFR-MDRD 13; Glucose 141 mg/dL (80-115); Potassium 3.6 mmol/L (3.5-5.1); Sodium 138 mmol/L (136-145)
[2017-06-05 05:16] LABS: Hemoglobin 8.1 g/dL (12.0-16.0); Mean Corpuscular HGB CONC 33.2 g/dL (32.0-36.0); Mean Corpuscular Hemoglobin 31.7 pg (27.0-31.0); Mean Corpuscular Volume 95.5 fl (81.0-99.0); Mean Platelet Volume 9.8 fL (7.4-10.4); Platelet Count 89 thou/uL (130-400); RBC Distribution Width 16.1 % (11.5-14.5); Red Blood Cell (RBC) Count 2.55 mill/uL (4.20-5.40); White Blood Cell (WBC) Count 23.1 thou/uL (4.8-10.8)
[2017-06-05 05:17] LABS: Band 4 % (5-11); Lymphocytes 7 % (21-51); MDiff Complete? YES; Monocytes 2 % (0-10); Neutrophil 87 % (42-75); Nucleated RBC 2 % (0); PLT Morphology Comment Appears Decreased
[2017-06-05 05:33] LABS: HBSAg Index 0.21 S/CO (0-0.99); Hep B Surf Ag Non-Reactive S/CO (NonReactive)
[2017-06-05] MEDS: Norepinephrine 8 MG in Sodium Chloride 0.9% 250 ML 250 ML IVPB PRN (06:43)
[2017-06-05] MEDS: predniSONE 20 MG TAB PO SCH (09:06)
--- NOTE | 2017-06-05 09:39 | PRG ---
DATE OF SERVICE: 06/05/2017 SUBJECTIVE: The patient was seen and examined in ICU. She is having spontaneous movement, eye movem ents this morning, still intubated. Plan is to have trach and PEG. OBJECTIVE: GENERAL: This is an obese female seen in ICU, intubated. VITAL SIGNS: Temperature 98.4, pulse 101, respiratory 18, blood pressure 94/27. HEENT: Atraumatic, normocephalic. NECK: Supple. CARDIOVASCULAR: S1, S2 heard. RESPIRATORY: Clear. ABDOMEN: Abdomen is obese. MUSCULOSKELETAL: 1+ edema. DERMATOLOGIC: No skin rash. LABORATORY DATA: Potassium is 3.6, BUN 38, creatinine 3.3. ASSESSMENT AND PLAN: 1. End-stage renal disease. Continue dialysis Friday, Friday, and Friday. 2. Anemia, status post transfusion. 3. Hypertension, stable. 4. Edema with fluid overload. 5. Acute hypoxic respiratory failure, intubated. 6. Cardiorenal syndrome. Plan is to continue on dialysis as tolerated.
[2017-06-05] MEDS: Fluconazole In NaCl,Iso-Osm 100 MG in Admixture Fee 1 EACH IVPB SCH (09:44)
[2017-06-05] MEDS ORDERED: Bupivacaine HCl 0.5%/Epinephrine 1:200,000/PF 30 ml Vial ONE (14:21)
[2017-06-05] MEDS ORDERED: Fentanyl 250 MCG/5 ML VIAL ONE (14:21)
[2017-06-05] MEDS ORDERED: Midazolam HCl 2 mg/2 ml Vial ONE (14:21)
--- NOTE | 2017-06-05 14:26 | PDOC.PN ---
- Subjective Encounter Start Date: 06/05/17 Encounter Start Time: 14:29 Subjective: Intubated. -: No acute events overnight. Family meeting held, trach and PEG agreed upon - Objective Resuscitation Status: Resuscitation Status FULL:Full Resuscitation MAR Reviewed: Yes Vital Signs & Weight: Vital Signs (12 hours) Temp Pulse Resp BP Pulse Ox 06/05/17 13:24 107 H 06/05/17 13:00 98.2 F 06/05/17 12:00 13 06/05/17 10:01 102 H 06/05/17 10:00 14 06/05/17 09:00 98.6 F 06/05/17 08:00 98.4 F 109 H 15 98 06/05/17 06:39 93 06/05/17 06:00 19 06/05/17 04:00 100.6 F H 06/05/17 03:33 17 06/05/17 02:32 112 H 91/43 L Weight Admit Weight 158 lb Weight 199 lb 1.239 oz Most Recent Monitor Data Heart Rate from ECG 101 NIBP 131/50 NIBP BP-Mean 84 Respiration from ECG 18 SpO2 98 I&O: 06/04/17 06/05/17 06/06/17 06:59 06:59 06:59 Intake Total 1418 1631 100 Balance 1418 1631 100 Result Diagrams: 06/05/17 04:56 06/05/17 04:56 Additional Labs: Accuchecks 06/05/17 06/05/17 06/05/17 11:56 07:42 04:46 POC Glucose 100 104 147 H 06/05/17 06/04/17 06/04/17 00:00 20:45 16:50 POC Glucose 132 H 141 H 146 H Phys Exam - Physical Examination Constitutional: NAD HEENT: PERRLA, moist MMs, sclera anicteric Neck: no JVD, supple Respiratory: no wheezing, no rales, no rhonchi, clear to auscultation bilateral Cardiovascular: RRR, no significant murmur, no rub Gastrointestinal: soft, non-tender, no distention, positive bowel sounds Musculoskeletal: edema present (b/l hands) Unable to cooperate w exam; intubated Skin: no rash, normal turgor Dx/Plan (1) Acute respiratory failure with hypoxemia Code(s): J96.01 - ACUTE RESPIRATORY FAILURE WITH HYPOXIA Status: Acute Comment: With possible Anoxic brain injury. Family discusseion held with CC and agreed on trach ang PEG (2) Diabetes mellitus type 2 in nonobese Code(s): E11.9 - TYPE 2 DIABETES MELLITUS WITHOUT COMPLICATIONS Status: Acute Comment: Controlled and at goal. (3) Healthcare-associated pneumonia Code(s): J18.9 - PNEUMONIA, UNSPECIFIED ORGANISM Status: Acute Comment: Continue Zosyn. Vancomycin discontinued 06/03 (4) Respiratory arrest Code(s): R09.2 - RESPIRATORY ARREST Status: Acute (5) CAD (coronary artery disease) Code(s): I25.10 - ATHSCL HEART DISEASE OF [place] CORONARY ARTERY W/O ANG PCTRS Status: Chronic Qualifiers: Coronary Disease-Associated Artery/Lesion type: [place] artery [place] vs. transplanted heart: [place] heart Associated angina: without angina Qualified Code(s): I25.10 - Atherosclerotic heart disease of [place] coronary artery without angina pectoris Comment: Continue ASA, Statin (6) ESRD (end stage renal disease) on dialysis Code(s): N18.6 - END STAGE RENAL DISEASE; Z99.2 - DEPENDENCE ON RENAL DIALYSIS Status: Chronic Comment: HD per renal (7) Peripheral vascular disease in diabetes mellitus Code(s): E11.51 - TYPE 2 DIABETES W DIABETIC PERIPHERAL ANGIOPATH W/O GANGRENE Status: Chronic (8) Tachycardia Code(s): R00.0 - TACHYCARDIA, UNSPECIFIED Status: Acute Comment: IMproving. Cardiology reviewed. Continue amiodarone. (9) Anemia of renal disease Code(s): D63.1 - ANEMIA IN CHRONIC KIDNEY DISEASE Status: Chronic Comment: Transfuse as necessary. Recieved 3 units already this admission. (10) NSTEMI (non-ST elevated myocardial infarction) Code(s): I21.4 - NON-ST ELEVATION (NSTEMI) MYOCARDIAL INFARCTION Status: Resolved - Plan cont current plan of care, continue antibiotics, PT/OT, social worker delinquency prevention * . Review of Systems - Medications/Allergies Allergies/Adverse Reactions: Allergies Allergy/AdvReac Type Severity Reaction Status Date / Time No Known Drug Allergies Allergy Verified 05/26/17 16:06 Medications: Current Medications Acetaminophen (Tylenol) 650 mg GA Q4H PRN PRN Reason: Headache/Fever or Pain Last Admin: 05/27/17 08:22 Dose: 650 mg Acetaminophen (Tylenol) 650 mg PO Q6H PRN PRN Reason: Headache/Fever Or Mild Pain Acetaminophen/Codeine Phosphate (Tylenol #3) 1 tab PO Q4H PRN PRN Reason: Mild Pain (1-3) Acetaminophen/Codeine Phosphate (Tylenol #3) 2 tab PO Q4H PRN PRN Reason: Moderate Pain (4-6) Hydrocodone Bitart/Acetaminophen ([place] 5/325) 1 tab PO Q4H PRN PRN Reason: Moderate Pain (4-6) Hydrocodone Bitart/Acetaminophen ([place] 5/325) 2 tab PO Q4H PRN PRN Reason: Severe Pain (7-10) Last Admin: 06/04/17 20:04 Dose: 2 tab Al Hydroxide/Mg Hydroxide (Maalox) 30 ml PO Q4H PRN PRN Reason: Indigestion Albuterol/Ipratropium (Duoneb) 3 ml NEB [id number] [facility] Last Admin: 06/05/17 13:24 Dose: 3 ml Aspirin (Aspirin Chewable) 81 mg PO DAILY [facility] Last Admin: 06/05/17 09:06 Dose: 81 mg Atorvastatin Calcium (Lipitor) 80 mg PO HS [facility] Last Admin: 06/04/17 20:04 Dose: 80 mg Bisacodyl (Dulcolax) 10 mg PO Q12H PRN PRN Reason: Constipation Bisacodyl (Dulcolax) 10 mg GA Q12H PRN PRN Reason: Constipation Dextrose/Water (Dextrose 50%) 25 gm SLOW IVP PRN PRN PRN Reason: PER HYPOGLYCEMIC PROTOCOL Epoetin Hima (Procrit) 10,000 units IVP [id number]@0900 [facility] Last Admin: 06/04/17 09:41 Dose: 10,000 units Famotidine (Pepcid) 20 mg PO 2100 [facility] Last Admin: 06/04/17 20:04 Dose: 20 mg Glucagon (Glucagon) 1 mg SC PRN PRN PRN Reason: PER HYPOGLYCEMIC PROTOCOL Hydralazine HCl (Apresoline) 10 mg SLOW IVP Q6H PRN PRN Reason: To Maintain SBP< 140mmHG Piperacillin Sod/Tazobactam (Sod 2.25 gm/ Sodium Chloride) 100 mls @ 200 mls/ hr IVPB 0300,1100,1900 [facility] Last Admin: 06/05/17 11:08 Dose: 100 mls Norepinephrine Bitartrate 8 mg (/ Sodium Chloride) 258 mls @ 0 mls/hr IVPB PRN PRN; Protocol; Titrate PRN Reason: To maintain SBP > 90 mmHG Last Admin: 06/05/17 06:43 Dose: 258 mls Nicardipine HCl 25 mg/ Sodium (Chloride) 260 mls @ 0 mls/hr IVPB INF PRN; Protocol; Titrate PRN Reason: To Maintain SBP< 140mmHG Nitroglycerin/Dextrose (Nitroglycerin 50 Mg/250 Ml Bot) 250 mls @ 0 mls/hr IVPB PRN PRN; Protocol; Titrate PRN Reason: To Maintain SBP< 140mmHG Sodium Chloride (Normal Saline 0.9%) 1,000 mls @ 25 mls/hr IV .Q24H [facility] Last Admin: 06/04/17 10:47 Dose: Not Given Insulin Human Regular 100 (units/ Sodium Chloride) 101 mls @ 0 mls/hr IVPB INF [facility]; As Directed PRN Reason: Protocol Dextrose/Water (D5w) 1,000 mls @ 0 mls/hr IV INF PRN; As Directed PRN Reason: PRN HYPOGLYCEMIC PROTOCOL Fluconazole/Sodium Chloride 100 mg/ Miscellaneous Medication 50 mls @ 100 mls/ hr IVPB DAILY [facility] Stop: 06/10/17 09:29 Last Admin: 06/05/17 09:44 Dose: 50 mls Amiodarone HCl 450 mg/Miscellaneous Medication 1 each/ Dextrose/Water 259 mls @ 0 mls/hr IVPB INF [facility]; As Directed PRN Reason: Protocol Last Admin: 06/04/17 22:02 Dose: 259 mls Insulin Human Regular (Humulin R) 0 units SC Q4H PRN; Protocol PRN Reason: POST OP SLIDING SCALE Last Admin: 06/05/17 04:50 Dose: 3 unit Ondansetron HCl (Zofran) 4 mg IVP Q6H PRN PRN Reason: Nausea/Vomiting Last Admin: 05/29/17 17:50 Dose: 4 mg Prednisone (Prednisone) 40 mg PO QAM[facility] Last Admin: 06/05/17 09:06 Dose: 40 mg Tramadol HCl (Ultram) 50 mg PO Q6H PRN PRN Reason: Moderate Pain (4-6)
--- NOTE | 2017-06-05 14:43 | PRG ---
DATE OF SERVICE: 06/05/2017 SERVICE: Pulmonary Medicine. INTERVAL HISTORY: The patient's family has decided to pursue PEG tube and tracheostomy placement. A s such, we are going to make preparations for that today. She is going to go off to the OR and come back with that thing. From my perspective, she is stable for transition out of the hospital as soon as this is done. She can go to an LTAC facility where she can pursue recovery of her strength. Hope fully, she will be able to rehabilitate well. PHYSICAL EXAMINATION: VITAL SIGNS: Afebrile, currently with a T-max of 100.6, pulse 107, blood pressure 131/50, respiratio ns 18, saturation 98% on 27% FiO2 and a PEEP of 5. GENERAL: The patient is awake and alert. She is following some simple commands. She is demonstrati ng extraordinary weakness of the upper and lower extremities. HEENT: Normocephalic and atraumatic. Sclerae are white, conjunctivae pink. Oral and nasal mucosa i s moist without lesions. LUNGS: Decent air entry. There is no prolonged expiratory phase or wheezing present. HEART: Tachycardic. Irregular. ABDOMEN: Soft, nontender and nondistended. Bowel sounds are positive. MUSCULOSKELETAL: No cyanosis or clubbing. There is diffuse 2+ pitting throughout. GENITOURINARY: Cuellar catheter in place. NEUROLOGIC: Grossly nonfocal. LABORATORY DATA: WBC 23.1, hemoglobin 8.1 and platelets 89,000. Neutrophil count is 87% with only 4 % bands. Creatinine 3.39. Otherwise, basic metabolic profile is completely unremarkable. BUN is 38 . C. diff antigen and toxin are negative. Blood cultures x3 are negative to date. ASSESSMENT: 1. Acute hypoxic respiratory failure. 2. Metabolic encephalopathy. 3. ST elevation myocardial infarction, status post coronary artery bypass graft x3 vessels, postoper ative day #7. 4. Healthcare-associated pneumonia. 5. Septic shock, resolved. 6. Critical care weakness. 7. Systemic inflammatory response syndrome. PLAN: If the patient has a fever greater than 101, nation culture will once again be performed. We aleksandr l also consider putting her back on empiric antibiotics. At this point, I do not have a source. The wound infection looks clean, dry, and intact. She is not putting out any significant sputum from he r lungs. We will move forward with PEG tube and tracheostomy. After this is done, she can transitio n out of the ICU to an LTAC facility. I will continue to follow while the patient remains in this lo cation. CRITICAL CARE TIME: 30 minutes.
[2017-06-05] MEDS ORDERED: PROPOFOL 200 MG/20 ML VIAL ONE (15:42)
[2017-06-05] MEDS ORDERED: Lidocaine 1% PF 5 ML VIAL ONE (15:42)
[2017-06-05] MEDS: Amiodarone HCl 450 MG, Admixture Fee 1 EACH in Dextrose 5% in Water 250 ML IVPB SCH ×2 (16:32→23:13)
[2017-06-05] MEDS: Sodium Chloride 0.9% 1,000 ML IV SCH (16:33)
--- NOTE | 2017-06-05 16:54 | OP ---
DATE OF PROCEDURE: 06/05/2017 PREOPERATIVE DIAGNOSES: Respiratory failure, status post coronary artery bypass grafting. POSTOPERATIVE DIAGNOSES: Chronic ventilator dependent, morbid obesity, end-stage renal disease, ence phalopathy, malnutrition, dysphagia. PROCEDURE: An #8 Shiley tracheostomy tube, percutaneous endoscopic gastrostomy tube. SURGEON: Dr. Yevgeniy Gonzalez. ANESTHESIA: General. Local 0.5% Marcaine with epinephrine, 30 mL. PROCEDURE: Patient taken to the operating room where under general anesthesia, neck and chest were p repared with ChloraPrep, draped in routine fashion. Incision made in the lower anterior neck just ab ove the manubrium carried down through the skin and platysma, dividing, and reflecting the strap musc les laterally and dividing the thyroid at the isthmus, reflecting it laterally and placing the strap sutures of 3-0 Prolene on either side. Air knots tied, secured anterior chest wall with Op-Site and Mastisol. Anterior tracheal wind removed over two cartilaginous rings below the cricoid and endotrac heal tube withdrawn and #8 Shiley tracheostomy tube low pressure cuff placed under direct visualizati on of the trachea. SurgiSeal placed around the wound and the thyroid. Skin approximately an outside with 3-0 Prolene. Tracheostomy appliance secured to skin with 3-0 Prolene. Sterile dressings appli ed. The patient tolerated the procedure well. Endoscope placed per os under direct visualization and using air insufflation passed throughout the e sophagus and the stomach insufflated. Good indentation noted left subcostal and abdomen prepared wit h ChloraPrep. Stab incision made and trocar catheter reduced into the stomach percutaneously, visual ized endoscopically, grasping the wire placed through the trocar catheter and pulling the endoscope a nd wire out the mouth, connecting the wire to the feeding tube device and pulling the lubricated tube back into the stomach, secured to the abdominal wall with a fixation device. The patient tolerated the procedure well.
[2017-06-05] MEDS: HYDROcodone/Acetaminophen 5/325 mg Tablet PO PRN (20:12)
[2017-06-05] MEDS: Atorvastatin Calcium 40 MG TAB PO SCH (20:12)
[2017-06-05] MEDS: Famotidine 20 MG TAB PO SCH (20:12)
[2017-06-05] MEDS: Heparin 5,000 UNITS/ML VIAL SC SCH (20:13)
[2017-06-06] MEDS: Insulin Regular 300 UNITS/3 ML VIAL SC PRN ×3 (00:46→16:22)
[2017-06-06] MEDS: Norepinephrine 8 MG in Sodium Chloride 0.9% 250 ML 250 ML IVPB PRN (03:09)
[2017-06-06] MEDS: HYDROcodone/Acetaminophen 5/325 mg Tablet PO PRN (03:19)
[2017-06-06 04:20] LABS: Anion Gap 19 mmol/L (10-20); Anisocytosis SLIGHT = 6-15 cells (100X) (0-5/hpf); BUN (Urea Nitrogen) 48 mg/dL (9.8-20.1); Band 7 % (5-11); Calc. Creatinine Clearance 16 mL/min (70-130); Calcium 8.5 mg/dL (7.8-10.44); Carbon Dioxide 24 mmol/L (23-31); Chloride 97 mmol/L (98-107); Estimated GFR-MDRD 10; Glucose 134 mg/dL (80-115); Hemoglobin 8.7 g/dL (12.0-16.0); Lymphocytes 3 % (21-51); MDiff Complete? YES; Macrocytosis SLIGHT = 6-15 cells (100X) (0-5/hpf); Mean Corpuscular HGB CONC 33.5 g/dL (32.0-36.0); Mean Corpuscular Hemoglobin 32.8 pg (27.0-31.0); Mean Corpuscular Volume 97.9 fl (81.0-99.0); Mean Platelet Volume 9.7 fL (7.4-10.4); Monocytes 3 % (0-10); Neutrophil 87 % (42-75); Nucleated RBC 8 % (0); PLT Morphology Comment Appears Adequate; Platelet Count 137 thou/uL (130-400); Polychromasia MODERATE = 3-4 cells (100X) (0-2/hpf); Potassium 3.7 mmol/L (3.5-5.1); RBC Distribution Width 16.3 % (11.5-14.5); Red Blood Cell (RBC) Count 2.65 mill/uL (4.20-5.40); Sodium 136 mmol/L (136-145)
[2017-06-06] MEDS: Amiodarone HCl 450 MG, Admixture Fee 1 EACH in Dextrose 5% in Water 250 ML IVPB SCH (05:42)
[2017-06-06] MEDS: Fluconazole In NaCl,Iso-Osm 100 MG in Admixture Fee 1 EACH IVPB SCH ×2 (08:40→12:05)
[2017-06-06] MEDS: Heparin 5,000 UNITS/ML VIAL SC SCH ×2 (08:41→12:12)
[2017-06-06] MEDS: Sodium Chloride 0.9% 1,000 ML IV SCH (09:52)
[2017-06-06] MEDS ORDERED: Albumin 5% 250 ML ONE ×2 (10:55→10:56)
[2017-06-06] MEDS ORDERED: Amiodarone 200 MG TAB PO SCH ×2 (11:00→21:00)
[2017-06-06 11:22] VITALS: BP 117/40
[2017-06-06 12:12] VITALS: BMI 35.9
[2017-06-06] MEDS: Epoetin (ESRD) 10,000 UNITS/ML VIAL IVP SCH (12:22)
--- NOTE | 2017-06-06 12:48 | PRG ---
DATE OF SERVICE: 06/06/2017 SERVICE: Pulmonary Medicine. INTERVAL HISTORY: The patient is doing outstanding from a cardiovascular and respiratory standpoint. She cannot provide much in the way of the interval history. That being said, there were no overnig ht events. She is following commands. She is able to stick out her tongue. She moves her feet with gentle stimulation. She cannot move her upper extremities at this time. OBJECTIVE: VITAL SIGNS: Afebrile, pulse 116, blood pressure 117/40, respirations 14, saturation 100% on 27% FiO 2 and a PEEP of 5. HEENT: Normocephalic, atraumatic. Sclerae are white, conjunctivae pink. Oral mucosa is moist witho ut lesions. LUNGS: Decent air entry. There is no prolonged expiratory phase. Crackles are present. No rhonchi . HEART: Tachycardic. Irregular. ABDOMEN: Soft, nontender, nondistended. Bowel sounds positive. MUSCULOSKELETAL: No cyanosis or clubbing. There is diffuse 3-4+ pitting throughout. GENITOURINARY: No Cuellar. NEUROLOGIC: Grossly nonfocal. LABORATORY DATA: WBC 23.0, hemoglobin 8.7, platelets 137,000 and up trending. Creatinine 4.55, BUN 48. Basic metabolic profile is otherwise unremarkable. C. diff antigen and toxin is unremarkable. Blood cultures x2 are negative. ASSESSMENT: 1. Acute hypoxic respiratory failure. 2. Metabolic encephalopathy. 3. Critical care weakness secondary to prolonged hospital stay. 4. ST elevation myocardial infarction, status post coronary artery bypass graft x3 vessels, postoper ative day #8. 5. Healthcare-associated pneumonia, status post full course of antibiotics. 6. Septic shock, resolved. 7. Systemic inflammatory response syndrome, recrudescence. 8. End-stage renal disease. DISCUSSION AND PLAN: The patient is status post PEG tube and tracheostomy by 1 day. We will start w eaning ventilator support as tolerated. She is on pressure support ventilation in 02/02 currently. O nce dialysis is done, I will try around 08/02 and if she tolerates this, we will initiate T-collar tria ls. Any fever, we will prompt us to do a nation culture, but at this point, I do not have a good explan ation for the elevated white blood cell count. We will minimize fluids as much as we can and she aleksandr l undergo dialysis per Nephrology's recommendations. Pulmonary Critical Care will continue to follow while she remains in this location, but she is ready for transition out of the hospital from a purel y respiratory perspective. We will need to clear this with Cardiology, however. CRITICAL CARE TIME: 30 minutes.
--- NOTE | 2017-06-06 13:41 | PDOC.PN ---
- Subjective Encounter Start Date: 06/06/17 Encounter Start Time: 13:43 Subjective: CLinical status remains unchanged. -: s/p trach and PEG. - Objective Resuscitation Status: Resuscitation Status FULL:Full Resuscitation MAR Reviewed: Yes Vital Signs & Weight: Vital Signs (12 hours) Temp Pulse Resp BP Pulse Ox 06/06/17 13:20 102 H 18 100 06/06/17 12:00 98.0 F 15 06/06/17 11:19 116 H 117/40 L 06/06/17 10:00 17 06/06/17 07:57 98.3 F 87 18 96 06/06/17 07:51 18 06/06/17 07:41 85 115/33 L 06/06/17 07:39 92 18 95 06/06/17 07:00 98.3 F 06/06/17 05:24 18 06/06/17 04:00 98.3 F 22 H 06/06/17 02:51 109 H 158/48 H 06/06/17 02:00 24 H Weight Admit Weight 158 lb 11.725 oz Weight 202 lb 13.204 oz Most Recent Monitor Data Heart Rate from ECG 109 NIBP 133/36 NIBP BP-Mean 93 Respiration from ECG 20 SpO2 100 I&O: 06/05/17 06/06/17 06/07/17 06:59 06:59 06:59 Intake Total 1631 1756 715 Output Total 440 Balance 1631 1756 275 Result Diagrams: 06/06/17 03:30 06/06/17 03:30 Additional Labs: Accuchecks 06/06/17 06/06/17 06/06/17 11:49 08:09 03:32 POC Glucose 115 H 92 143 H 06/06/17 06/05/17 06/05/17 00:45 20:16 16:27 POC Glucose 137 H 144 H 136 H Phys Exam - Physical Examination Constitutional: NAD HEENT: PERRLA, moist MMs, sclera anicteric Neck: no JVD, supple, full ROM Respiratory: no wheezing, no rales, no rhonchi, clear to auscultation bilateral Cardiovascular: RRR, no significant murmur, no rub Gastrointestinal: soft, non-tender, no distention, positive bowel sounds Musculoskeletal: pulses present, edema present Neurological: non-focal Deviation from normal: Unable to cooperate w exam Skin: no rash, normal turgor Dx/Plan (1) Acute respiratory failure with hypoxemia Code(s): J96.01 - ACUTE RESPIRATORY FAILURE WITH HYPOXIA Status: Acute Comment: With possible Anoxic brain injury. s/p Trach and PEG 06/05. Will be weaned off ventilator today (2) Diabetes mellitus type 2 in nonobese Code(s): E11.9 - TYPE 2 DIABETES MELLITUS WITHOUT COMPLICATIONS Status: Acute Comment: Controlled and at goal. (3) Healthcare-associated pneumonia Code(s): J18.9 - PNEUMONIA, UNSPECIFIED ORGANISM Status: Acute Comment: s/p treatment with Zosyn and Vancomycin. (4) CAD (coronary artery disease) Code(s): I25.10 - ATHSCL HEART DISEASE OF [place] CORONARY ARTERY W/O ANG PCTRS Status: Chronic Qualifiers: Coronary Disease-Associated Artery/Lesion type: [place] artery [place] vs. transplanted heart: [place] heart Associated angina: without angina Qualified Code(s): I25.10 - Atherosclerotic heart disease of [place] coronary artery without angina pectoris Comment: Continue ASA, Statin (5) ESRD (end stage renal disease) on dialysis Code(s): N18.6 - END STAGE RENAL DISEASE; Z99.2 - DEPENDENCE ON RENAL DIALYSIS Status: Chronic Comment: HD per renal (6) Peripheral vascular disease in diabetes mellitus Code(s): E11.51 - TYPE 2 DIABETES W DIABETIC PERIPHERAL ANGIOPATH W/O GANGRENE Status: Chronic (7) Tachycardia Code(s): R00.0 - TACHYCARDIA, UNSPECIFIED Status: Acute Comment: IMproving. Cardiology reviewed. Continue amiodarone. (8) Anemia of renal disease Code(s): D63.1 - ANEMIA IN CHRONIC KIDNEY DISEASE Status: Chronic Comment: Transfuse as necessary. Recieved 3 units already this admission. (9) NSTEMI (non-ST elevated myocardial infarction) Code(s): I21.4 - NON-ST ELEVATION (NSTEMI) MYOCARDIAL INFARCTION Status: Resolved (10) Leukocytosis (leucocytosis) Code(s): D72.829 - ELEVATED WHITE BLOOD CELL COUNT, UNSPECIFIED Status: Acute Comment: Unclear etiology. Panculture if pt develops a fever. - Plan Continue to wean off ventilator and possibly levophed -: CM consult for LTAC placement placed. -: Continue tube feeds. * . Review of Systems - Medications/Allergies Allergies/Adverse Reactions: Allergies Allergy/AdvReac Type Severity Reaction Status Date / Time No Known Drug Allergies Allergy Verified 05/26/17 16:06 Medications: Current Medications Acetaminophen (Tylenol) 650 mg GA Q4H PRN PRN Reason: Headache/Fever or Pain Last Admin: 05/27/17 08:22 Dose: 650 mg Acetaminophen (Tylenol) 650 mg PO Q6H PRN PRN Reason: Headache/Fever Or Mild Pain Al Hydroxide/Mg Hydroxide (Maalox) 30 ml PO Q4H PRN PRN Reason: Indigestion Albumin Human (Albumin 5%) 25 gm IVPB PRN PRN PRN Reason: DURING DIALYSIS FOR LOW BP Albuterol/Ipratropium (Duoneb) 3 ml NEB [id number] [facility] Last Admin: 06/06/17 13:20 Dose: 3 ml Amiodarone HCl (Cordarone) 400 mg PO BID [facility] Aspirin (Aspirin Chewable) 81 mg PO DAILY [facility] Last Admin: 06/06/17 12:04 Dose: 81 mg Atorvastatin Calcium (Lipitor) 80 mg PO HS [facility] Last Admin: 06/05/17 20:12 Dose: 80 mg Bisacodyl (Dulcolax) 10 mg PO Q12H PRN PRN Reason: Constipation Bisacodyl (Dulcolax) 10 mg GA Q12H PRN PRN Reason: Constipation Dextrose/Water (Dextrose 50%) 25 gm SLOW IVP PRN PRN PRN Reason: PER HYPOGLYCEMIC PROTOCOL Epoetin Hima (Procrit) 10,000 units IVP [id number]@0900 [facility] Last Admin: 06/06/17 12:22 Dose: Not Given Famotidine (Pepcid) 20 mg PO 2100 [facility] Last Admin: 06/05/17 20:12 Dose: 20 mg Glucagon (Glucagon) 1 mg SC PRN PRN PRN Reason: PER HYPOGLYCEMIC PROTOCOL Heparin Sodium (Porcine) (Heparin) 5,000 units SC BID [facility] Last Admin: 06/06/17 12:12 Dose: 5,000 units Hydralazine HCl (Apresoline) 10 mg SLOW IVP Q6H PRN PRN Reason: To Maintain SBP< 140mmHG Norepinephrine Bitartrate 8 mg (/ Sodium Chloride) 258 mls @ 0 mls/hr IVPB PRN PRN; Protocol; Titrate PRN Reason: To maintain SBP > 90 mmHG Last Admin: 06/06/17 03:09 Dose: 258 mls Sodium Chloride (Normal Saline 0.9%) 1,000 mls @ 25 mls/hr IV .Q24H SUHAS Last Admin: 06/06/17 09:52 Dose: Not Given Dextrose/Water (D5w) 1,000 mls @ 0 mls/hr IV INF PRN; As Directed PRN Reason: PRN HYPOGLYCEMIC PROTOCOL Fluconazole/Sodium Chloride 100 mg/ Miscellaneous Medication 50 mls @ 100 mls/ hr IVPB DAILY [facility] Stop: 06/10/17 09:29 Last Admin: 06/06/17 12:05 Dose: 50 mls Insulin Human Regular (Humulin R) 0 units SC Q4H PRN; Protocol PRN Reason: POST OP SLIDING SCALE Last Admin: 06/06/17 03:32 Dose: 3 unit Midodrine (Proamatine) 5 mg PO TID [facility] Last Admin: 06/06/17 12:10 Dose: 5 mg Ondansetron HCl (Zofran) 4 mg IVP Q6H PRN PRN Reason: Nausea/Vomiting Last Admin: 05/29/17 17:50 Dose: 4 mg
[2017-06-06] MEDS ORDERED: Midodrine HCl 5 MG TAB PO SCH (15:00)
[2017-06-06] MEDS: predniSONE 20 MG TAB PO SCH (16:06)
--- NOTE | 2017-06-06 16:15 | PRG ---
DATE OF SERVICE: 06/06/2017 SUBJECTIVE: The patient is seen and examined in ICU, remains intubated. OBJECTIVE: GENERAL: This is an obese female seen in ICU, intubated. VITAL SIGNS: Temperature 98.0, pulse of 107, respiratory rate 20, blood pressure 123/38. HEENT: Intubated. NECK: Supple. CARDIOVASCULAR: S1, S2 heard. RESPIRATORY: Clear. ABDOMEN: Soft. MUSCULOSKELETAL: 1+ edema. DERMATOLOGIC: No skin rash. NEUROLOGIC: Intubated. LABORATORY DATA: Potassium is 3.7, BUN is 48, creatinine is 4.5. ASSESSMENT AND PLAN: 1. End-stage renal disease on hemodialysis. Continue dialysis Friday, Friday, and Friday. 2. Anemia, status post transfusion. 3. Hypertension. 4. Edema. 5. Acute hypoxic respiratory failure. 6. Cardiorenal syndrome. Plan is to continue on dialysis as tolerated.
[2017-06-06 16:16] VITALS: TEMP 98.2
--- NOTE | 2017-06-06 16:40 | CT ---
EXAM: NONCONTRAST HEAD CT 06/06/17 HISTORY: Encephalopathy. Patient minimally responsive. COMPARISON: 05/26/17. TECHNIQUE: Noncontrast head CT is performed from the skull base to skull vertex. FINDINGS: No parenchymal hemorrhage. No extra-axial hematoma. No midline shift. Basilar cisterns are patent. Ag e appropriate atrophy. There appears to be loss of cortical george-white matter differentiation involvi ng the left occipital lobe. There are periventricular white matter hypodensities likely due to chroni c small vessel ischemic change. Partial opacification of the right mastoid air cells. Left mastoid air cells are adequately aerated. Direct visualization to exclude abnormality in the right fossa of [place] is recommended. There i s bilateral maxillary sinus, frontal sinus and ethmoidal air cell disease. IMPRESSION: 1. Hypodensity in the left occipital lobe. Better interrogation with a brain MRI is recommended. Possibility of an acute infarct should not be excluded. Finding is not definitively seen in the most recent prior exam. 2. Sinus opacification as above. 3. Right mastoid air cell opacification as above. POS: [facility]
--- NOTE | 2017-06-06 17:54 | PRG ---
DATE OF SERVICE: 06/06/2017 HISTORY: Ms. Randle is doing well today. Tracheostomy site looks good. Feeding tube, PEG, looks go od. Abdomen is soft, nontender. At this point, I will see her as needed. Please call if needed, I will sign off.
--- NOTE | 2017-06-07 07:23 | DIS ---
DATE OF ADMISSION: 05/26/2017 DATE OF DISCHARGE: 06/06/2017 DISCHARGE DIAGNOSES: Acute respiratory failure with hypoxemia, type 2 diabetes mellitus, healthcare associated pneumonia, coronary artery disease, end-stage renal disease on dialysis, peripheral vascular disease in a diabetic patient, tachycardia, anemia of chronic disease, paroxysmal atrial fibrillation, non ST segment elevation myocardial infarction, leukocytosis. HISTORY OF PRESENT ILLNESS: The patient was brought to the [place] [facility] by her . The patient had complained of a cough of 2 days ' duration and generalized soreness. She had no history of fevers, chills or sweats. She was sent over to the emergency room from her hemodialysis center, they state that she was sleepy. At the emergency room, blood pressure was noted to be low and she had bouts of cough, fell down and went into respiratory arrest. She was admitted, intubated in the emergency room. Post-intubation, vital signs were relatively stable. Her labs on admission showed a troponin of 6.02, CK-MB of 15.7, creatinine of 4.18, BUN 23, CO2 of 22, chloride 98, potassium 3.8. Sodium 137. Lactic acid was 6.5 and BNP was 2800. EKG showed atrial fibrillation with rapid ventricular response, marked ST segment depression of V4-V6. Chest x-ray showed borderline cardiomegaly, but no obvious pulmonary edema, but some evidence of pulmonary vascular congestion with no infiltrates. On admission diagnosis of acute respiratory failure with pulmonary arrest was made as well as non-ST elevation myocardial infarction. The patient was intubated, moved to the Intensive Care Unit where a Cardiology and Pulmonary consult was made. The patient had a cardiac catheterization on , which showed 3-vessel disease for which CABG was recommended. Due to her atrial fibrillation, she also had an unsuccessful cardioversion on 2017, she would go into sinus rhythm, but then go right back to atrial fibrillation. HOSPITAL COURSE: Acute hypoxic respiratory failure with metabolic encephalopathy. She was managed in the ICU with mechanical ventilation. She was eventually trached and pegged before discharge and weaned off the ventilator. Tube feeds were started and the patient was at 21% of oxygen. For her type 2 diabetes mellitus, it was controlled with insulin and was at goal for healthcare associated pneumonia. She received treatment with vancomycin and Zosyn and is status post antibiotic therapy for CAD. She had a cardiac catheterization which showed 3-vessel disease, but due to her current condition CABG was not proceeded. End-stage renal disease on dialysis. She continues hemodialysis on Friday, Friday, and Friday per renal recommendations. For her tachycardia was secondary to history of paroxysmal atrial fibrillation. She had an unsuccessful cardioversion. She was started on amiodarone. Anemia of chronic disease. She was on epo and received 3 units of PRBC while on admission. NSTEMI and CAD. Leukocytosis, unclear etiology. The patient was persistently with elevated WBC count. She was treated for healthcare associated pneumonia; however, she had elevated counts. Her vital signs were monitored and there was no further indication for treatments. PHYSICAL EXAMINATION: She was examined on the day of discharge. VITAL SIGNS: Showed blood pressure of 108/42, temperature of 98.2, heart rate of 104, respiratory rate of 26, oxygen saturation 100% through her trach. GENERAL: Not in acute distress, lying in bed. HEENT: PERRLA. Moist mucous membranes, anicteric, not pale. NECK: No JVD. Supple, with full range of movement. RESPIRATORY: No wheezes, rales or rhonchi. LUNGS: Clear to auscultation bilaterally. CARDIOVASCULAR: Tachycardic with irregular rhythm, no significant murmurs or rubs. GASTROINTESTINAL: Soft, nontender, nondistended. Positive bowel sounds. MUSCULOSKELETAL: Pulses present. Edema in bilateral upper extremities. NEUROLOGICAL: Unable to cooperate with the exam. SKIN: Warm. Of note, the patient was also hypotensive and required Levophed while in the hospital. DISCHARGE MEDICATIONS: Acetaminophen p.o. and FL 650 mg q.4 hours p.r.n. for fever, amiodarone 400 mg b.i.d., aspirin 81 mg daily, simvastatin 80 mg at bedtime, erythropoietin 10,000 units intravenous IVP Friday, Friday, Friday. Famotidine 20 mg daily, insulin sliding scale, ipratropium/albuterol sulfate 3 mL every 6 hours p.r.n. shortness of breath, wheezing. Midodrine 5 mg t.i.d. , norepinephrine 4 mg in 4 mL vial titrated for blood pressure, alprazolam 0.25 mg t.i.d., Artificial Tears ointment 1 drop in each eye p.r.n., isosorbide dinitrate 20 mg daily, metoprolol tartrate 100 mg b.i.d., nifedipine 30 mg at bedtime, and pantoprazole 40 mg daily. LABORATORY DATA: WBC 23, hemoglobin 8.7, platelet count 137. Sodium 136, potassium 3.7, chloride 97, carbon dioxide 24, anion gap 19, BUN 48, creatinine 4.55, glucose 134, calcium 8.5. IMAGING: CT brain as reported in history of present illness and hospital course. Last chest x-ray showed CHF, bibasilar air opacities, consolidation left lower lobe. This was when she was then started on treatment for healthcare associated pneumonia. CONSULTS: General Surgery, Nephrology, Cardiology, Pulmonology, Cardiovascular Surgery, and Palliative Care. Also of note, comfort measures were discussed extensively with family, but family preferred to go through the route of trach and PEG on discharge to an LTAC. CONDITION AT DISCHARGE: Stable. PROCEDURES: As discussed in history of present illness and hospital course. DIET: Tube feeding. CARE GOALS: The patient to be under care of the physicians at the LTAC. ACTIVITY: PT/OT, encouraged. Discharge time 65 minutes including chart review and documentation. MTDD
[2017-06-18 11:15] LABS: CO2 Tension 26.1 mmHg (35.0-45.0); pH, Arterial 7.49 (7.35-7.45)
[2017-06-18 11:16] LABS: O2 Tension (PaO2) 503.3 mmHg (80.0-100.0)
[2017-06-18 11:21] LABS: Actual Bicarbonate (HCO3a) 19.5 mEq/L (22-26); Base Excess (BEa) -2.8 mEq/L (0 (+/-) 2.5); Hematocrit-ABG 32.9 % (36.0-47.0); Hemoglobin (Hb) 10.4 g/dL (12.0-16.0)
[2017-06-18 11:22] LABS: Actual Bicarbonate (HCO3v) 27 mEq/L (22-26); Analyzer IN Cardio OR; Base Excess 1.9 mEq/L (0 (+/- 2.5))
[2017-06-18 11:22] LABS: Analyzer IN Cardio OR; Calcium, Ionized 0.9 mmol/L (1.12-1.30); Puncture Site ALINE
[2017-06-18 11:23] LABS: CO2 Tension 39.3 mmHg (35.0-45.0); O2 Tension (PaO2) 393.6 mmHg (80.0-100.0); pH, Arterial 7.43 (7.35-7.45)
[2017-06-18 11:23] LABS: Calcium, Ionized 0.86 mmol/L (1.16-1.32); Chloride (ABG LAB) 97 mmol/L (98-106); Hematocrit-VBG 19.6 % (35-47); Hemoglobin (Hb) 6.5 g/dL (11.7-16.1); Sodium 134.9 mmol/L (133-146)
[2017-06-18 11:24] LABS: Actual Bicarbonate (HCO3a) 25.4 mEq/L (22-26); Analyzer IN Cardio OR; Calcium, Ionized 0.8 mmol/L (1.12-1.30); Hematocrit-ABG 19.7 % (36.0-47.0); Hemoglobin (Hb) 6.7 g/dL (12.0-16.0); Puncture Site ALINE
[2017-06-18 11:25] LABS: Actual Bicarbonate (HCO3a) 23.9 mEq/L (22-26); Analyzer IN Cardio OR; CO2 Tension 40.6 mmHg (35.0-45.0); Calcium, Ionized 0.8 mmol/L (1.12-1.30); Hematocrit-ABG 22.2 % (36.0-47.0); Hemoglobin (Hb) 7.4 g/dL (12.0-16.0); Puncture Site ALINE; pH, Arterial 7.39 (7.35-7.45)
[2017-06-18 11:26] LABS: Actual Bicarbonate (HCO3a) 21.1 mEq/L (22-26); CO2 Tension 33.4 mmHg (35.0-45.0); Hematocrit-ABG 24.6 % (36.0-47.0); Hemoglobin (Hb) 8.3 g/dL (12.0-16.0); O2 Tension (PaO2) 481.8 mmHg (80.0-100.0); pH, Arterial 7.42 (7.35-7.45)
[2017-06-18 11:27] LABS: Analyzer IN Cardio OR; Puncture Site ALINE
[2017-06-18 11:27] LABS: Actual Bicarbonate (HCO3a) 21.5 mEq/L (22-26); Base Excess (BEa) -2.6 mEq/L (0 (+/-) 2.5); CO2 Tension 34.5 mmHg (35.0-45.0); Hematocrit-ABG 30.8 % (36.0-47.0); Hemoglobin (Hb) 9.9 g/dL (12.0-16.0); O2 Tension (PaO2) 477.3 mmHg (80.0-100.0); pH, Arterial 7.41 (7.35-7.45)
[2017-06-18 11:28] LABS: Analyzer IN Cardio OR; Puncture Site ALINE
== END 2017-06-06 17:56 | DRG 3 ==
LOC: ERS 12:59 → CCU 14:04
PROVIDERS: ADMIT Internal Medicine; ATTEND Internal Medicine
PROC: 5A1955Z Respiratory Ventilation, Greater than 96 Consecutive Hours (ICD-10-PCS; 2017-05-26)
PROC: 4A023N7 Measurement of Cardiac Sampling and Pressure, Left Heart, Percutaneous Approach (ICD-10-PCS; 2017-05-26)
PROC: B2111ZZ Fluoroscopy of Multiple Coronary Arteries using Low Osmolar Contrast (ICD-10-PCS; 2017-05-26)
PROC: 0BH17EZ Insertion of Endotracheal Airway into Trachea, Via Natural or Artificial Opening (ICD-10-PCS; 2017-05-26)
PROC: 5A1D70Z Performance of Urinary Filtration, Intermittent, Less than 6 Hours Per Day (ICD-10-PCS; 2017-05-28)
PROC: 02100Z9 Bypass Coronary Artery, One Artery from Left Internal Mammary, Open Approach (ICD-10-PCS; 2017-05-29)
PROC: 021109W Bypass Coronary Artery, Two Arteries from Aorta with Autologous Venous Tissue, Open Approach (ICD-10-PCS; 2017-05-29)
PROC: 06BP4ZZ Excision of Right Saphenous Vein, Percutaneous Endoscopic Approach (ICD-10-PCS; 2017-05-29)
PROC: 5A1221Z Performance of Cardiac Output, Continuous (ICD-10-PCS; 2017-05-29)
PROC: 30233N1 Transfusion of Nonautologous Red Blood Cells into Peripheral Vein, Percutaneous Approach (ICD-10-PCS; 2017-05-29)
PROC: 5A2204Z Restoration of Cardiac Rhythm, Single (ICD-10-PCS; 2017-05-30)
PROC: 5A1D70Z Performance of Urinary Filtration, Intermittent, Less than 6 Hours Per Day (ICD-10-PCS; 2017-05-30)
PROC: 5A1D70Z Performance of Urinary Filtration, Intermittent, Less than 6 Hours Per Day (ICD-10-PCS; 2017-06-02)
PROC: 5A1D70Z Performance of Urinary Filtration, Intermittent, Less than 6 Hours Per Day (ICD-10-PCS; 2017-06-04)
PROC: 0B110F4 Bypass Trachea to Cutaneous with Tracheostomy Device, Open Approach (ICD-10-PCS; principal; 2017-06-05)
PROC: 0DH63UZ Insertion of Feeding Device into Stomach, Percutaneous Approach (ICD-10-PCS; 2017-06-05)
PROC: 5A1D70Z Performance of Urinary Filtration, Intermittent, Less than 6 Hours Per Day (ICD-10-PCS; 2017-06-06)
DX: I21.4 Non-ST elevation (NSTEMI) myocardial infarction (principal); R65.21 Severe sepsis with septic shock; A41.9 Sepsis, unspecified organism; G93.41 Metabolic encephalopathy; J18.9 Pneumonia, unspecified organism; E46 Unspecified protein-calorie malnutrition; I12.0 Hypertensive chronic kidney disease with stage 5 chronic kidney disease or end stage renal disease; J96.01 Acute respiratory failure with hypoxia; N18.6 End stage renal disease; E87.2 Acidosis; Z99.11 Dependence on respirator [ventilator] status; E11.22 Type 2 diabetes mellitus with diabetic chronic kidney disease; E11.51 Type 2 diabetes mellitus with diabetic peripheral angiopathy without gangrene; I48.0 Paroxysmal atrial fibrillation; E78.5 Hyperlipidemia, unspecified; Z51.5 Encounter for palliative care; I25.10 Atherosclerotic heart disease of native coronary artery without angina pectoris; Z99.2 Dependence on renal dialysis; E87.70 Fluid overload, unspecified; E87.5 Hyperkalemia; E87.6 Hypokalemia; D63.1 Anemia in chronic kidney disease; Z68.35 Body mass index [BMI] 35.0-35.9, adult; Z88.8 Allergy status to other drugs, medicaments and biological substances; Z79.82 Long term (current) use of aspirin; Z79.899 Other long term (current) drug therapy; Y95 Nosocomial condition
CPT/HCPCS: 31500; 36415; 36416; 36430; 36556; 70450; 71045; 80048; 80053; 80202; 80307; 82140; 82550; 82553; 82805; 83605; 83690; 83735; 83880; 84443; 84484; 85025; 85379; 85610; 85730; 86850; 86900; 86901; 87040; 87324; 87340; 87449; 90935; 93005; 93010; 93306; 93458; 94002; 94003; 94150; 94640; 94760; 96361; 96365; 96372; 96375; 96376; A4216; C1769; C1887; G0257; J0171; J0282; J0670; J1160; J1265; J1450; J1644; J1650; J1815; J2001; J2060; J2250; J2310; J2405; J2440; J2543; J2704; J2720; J3010; J3370; J3475; J7050; J7070; J7506; J7620; P9016; P9045; Q4081; S0017; S0028